=== PATIENT | female | born 1970 | race Caucasian/White ===

== ENCOUNTER 2019-08-20 00:30 | Day surgery (SDC) | payer OTHER, SELFPAY ==
[2019-08-14 09:59] VITALS: BMI 40.3
[2019-08-20 08:50] VITALS: BP 121/83; PULSE 80; RESP 16; TEMP 36.5; O2SAT 100; BMI 41.0
[2019-08-20] MEDS: LACTATED RINGERS 1,000 ML 150 ML IV CONT (09:15)
--- NOTE | 2019-08-20 09:17 | WPDANESEPPF ---
Anes - Initial Pre Proc Eval Procedure: Operation Date: 08/20/19 09:30 Proposed Procedures p Esophagogastroduodenoscopy - Shreyas Black MD Date/Time: 08/20/19 09:17 Surgeon: Shreyas Black MD Pre Op Diagnosis: Epigastric Pain Patient Data Age: 48 Gender: F Height: 1.57 m Weight: 101.7 kg Last Vital Signs Temp 36.5 C 08/20/19 08:50 Pulse 80 08/20/19 08:50 Resp 16 08/20/19 08:50 BP 121/83 08/20/19 08:50 Pulse Ox 100 08/20/19 08:50 Allergies Allergy/AdvReac Type Severity Reaction Status Date / Time No Known Allergies Allergy Verified 08/20/19 08:54 Home Medications Medication Instructions Recorded Confirmed Type budesonide-formoterol HFA 160 2 puff INHALATION Q12H 07/15/19 08/14/19 History mcg-4.5 mcg/actuation aerosol inhaler lisinopril 10 1 tablet PO DAILY 07/15/19 08/20/19 History mg-hydrochlorothiazide 12.5 mg tablet venlafaxine 150 mg 150 mg PO DAILY 07/15/19 08/14/19 History capsule,extended release 24 hr albuterol sulfate 90 mcg/actuation 2 puff INHALATION Q4-6H PRN #8.5 gm 07/16/19 08/14/19 Rx aerosol inhaler montelukast 10 mg tablet 10 mg PO DAILY 07/16/19 08/14/19 History umeclidinium 62.5 mcg/actuation 1 inhalation INHALATION DAILY #30 07/16/19 08/14/19 Rx blister powder for inhalation each Patient hx anesthesia problems: none Family hx anesthesia problems: none PMFSH Past Medical History Medical History (Updated 08/19/19 @ 13:41 by Naman Will DO) Anxiety Chronic obstructive pulmonary disease Former smoker Hypertension Nodule of right lung KAREN (obstructive sleep apnea) Rash Surgical History Surgical History (Updated 08/19/19 @ 13:41 by Naman Will DO) History of cholecystectomy History of tubal ligation Family History Family History (Updated 09/04/17 @ 07:09 by DOCTOR UNKNOWN) Sibling Depression Patient's sister is in good health Patient's brother is in good health Mother Family history of heart disease in male family member before age 55 Family history of cardiovascular disease, Onset Age: 50 Other Family history of gastrointestinal disorder Hypertension Social History Social History Smoking status: Former smoker Smoking end date: 06/17/11 Alcohol intake: current Anes - Eval Final PreProcedure Day of Procedure 08/20/19 09:17 Patient weight: morbidly obese Heart: regular rate and rhythm Lungs: clear to auscultation and normal air movement Airway: Mallampati scale class II Neurological: alert and oriented Last oral intake: >/= 8 hours ASA classification: III Emergent: no Anesthetic plan: proceed Anesthesia type and monitoring: general GIVS and standard monitoring Informed Consent: The patient's anesthetic plan and its attendant risks and benefits were discussed with the patient/family/POA. Questions were solicited and answers provided to the satisfaction of the patient/family/POA.
--- NOTE | 2019-08-20 09:34 | WPDGICN ---
Assessment and Plan Additional Plan This is a 48-year-old white female patient I am asked to see at the request Dr. Tejada. patient reports a 6 month history of mid upper abdominal pain. She notices nausea perhaps 3 times a week. Sometimes the pain feels like a pinch sometimes like a burning type pain. There is no relation of pain to diet. Nor relation to movement. She has tried Tums with no relief of symptoms. Recent trial of Prilosec has not yet changed her pain. Past medical history is significant for hypertension. COPD. Hypertension. Previous surgery includes cholecystectomy. Medications include lisinopril, Singulair, Symbicort, Flonase. Venlafaxine. No known medical allergies. Physical exam reveals her to be alert. Vital signs stable. HEENT exam unremarkable. Lungs are clear to auscultation and percussion. Heart is without murmur or extra sounds. Abdominal exam is somewhat obese. Bowel sounds are present soft she reports tenderness in the midepigastric area. rectal exam is deferred. Impression 1. Epigastric pain. Etiology unclear. Plan is for EGD to assess more thoroughly. Continue proton pump inhibitor for the interim period GI Consult Note Consult date/time: 08/20/19 09:34 HPI: Eli Rey is a 48 year old female [facility] Past Medical History Medical History (Updated 08/19/19 @ 13:41 by Naman Will DO) Anxiety Chronic obstructive pulmonary disease Former smoker Hypertension Nodule of right lung KAREN (obstructive sleep apnea) Rash Surgical History Surgical History (Updated 08/19/19 @ 13:41 by Naman Will DO) History of cholecystectomy History of tubal ligation Family History Family History (Updated 09/04/17 @ 07:09 by DOCTOR UNKNOWN) Sibling Depression Patient's sister is in good health Patient's brother is in good health Mother Family history of heart disease in male family member before age 55 Family history of cardiovascular disease, Onset Age: 50 Other Family history of gastrointestinal disorder Hypertension Social History Social History Smoking status: Former smoker Smoking end date: 06/17/11 Alcohol intake: current Meds Home Medications and Allergies Home Medications Medication Instructions Recorded Confirmed Type budesonide-formoterol HFA 160 2 puff INHALATION Q12H 07/15/19 08/14/19 History mcg-4.5 mcg/actuation aerosol inhaler lisinopril 10 1 tablet PO DAILY 07/15/19 08/20/19 History mg-hydrochlorothiazide 12.5 mg tablet venlafaxine 150 mg 150 mg PO DAILY 07/15/19 08/14/19 History capsule,extended release 24 hr albuterol sulfate 90 mcg/actuation 2 puff INHALATION Q4-6H PRN #8.5 gm 07/16/19 08/14/19 Rx aerosol inhaler montelukast 10 mg tablet 10 mg PO DAILY 07/16/19 08/14/19 History umeclidinium 62.5 mcg/actuation 1 inhalation INHALATION DAILY #30 07/16/19 08/14/19 Rx blister powder for inhalation each Allergies Allergy/AdvReac Type Severity Reaction Status Date / Time No Known Allergies Allergy Verified 08/20/19 08:54 Vital Signs Vital Signs - 24 hr 08/20/19 08:50 Temperature 36.5 C Pulse Rate 80 Respiratory Rate 16 Blood Pressure 121/83 Pulse Oximetry 100
[2019-08-20] MEDS: BENZOCAINE (*SP) 60 ML SPRAY CAN (HURRICAINE) 1 SPRAY MUCOUS MEM (09:36)
[2019-08-20 09:50] VITALS: BP 136/114; PULSE 87; RESP 20; O2SAT 100
[2019-08-20 10:00] VITALS: BP 115/79; PULSE 83; RESP 18; O2SAT 99
[2019-08-20 10:10] VITALS: BP 104/67; PULSE 79; RESP 20; O2SAT 100
== END 2019-08-20 10:28 | disposition home or self-care (01) ==
PROVIDERS: PCP Internal Medicine; Visit Provider Internal Medicine Gastroenterology
PROC: 0DJ08ZZ Inspection of Upper Intestinal Tract, Via Natural or Artificial Opening Endoscopic (ICD-10-PCS; CPT 43235; principal; 2019-08-20 09:30)
DX: K29.80 Duodenitis without bleeding (principal); I10 Essential (primary) hypertension; J44.9 Chronic obstructive pulmonary disease, unspecified; G47.33 Obstructive sleep apnea (adult) (pediatric); F41.9 Anxiety disorder, unspecified; R91.1 Solitary pulmonary nodule; Z87.891 Personal history of nicotine dependence; E66.01 Morbid (severe) obesity due to excess calories; Z68.41 Body mass index [BMI] 40.0-44.9, adult
CPT/HCPCS: 43239; 87081; J2704; J7120

== ENCOUNTER 2019-12-11 10:47 | Outpatient (CLI) | payer OTHER, SELFPAY ==
--- NOTE | ~2019-12-11 | CT_ITS ---
EXAMINATION: CT chest wo con DATE: 12/11/2019 11:08 INDICATION: Solitary pulmonary nodule TECHNIQUE: Computed tomography (CT) of the chest was performed without intravenous contrast. The dose -length product (DLP) was 397.39 mGy-cm. Automated exposure control and iterative reconstruction tech [employer] were employed. COMPARISON: 12/09/2018, 12/03/2017 FINDINGS: There is moderate emphysema. There is a stable 5 mm nodule of the right lower lobe. No new or suspicious pulmonary nodule is identified. The lungs are free of focal airspace opacities. No path ologically enlarged thoracic lymph nodes are identified. The heart size is normal. The gallbladder is surgically absent. Punctate calcifications in an otherwise normal spleen likely represent healed gra nulomatous disease. IMPRESSION: 1. Stable nodule of the right lower lobe, most consistent with old granulomatous disease. 2. Moderate emphysema. Reviewed, dictated and finalized at location A. IMPRESSION: 1. Stable nodule of the right lower lobe, most consistent with old granulomatou s disease. 2. Moderate emphysema.
== END 2019-12-11 10:48 | disposition home or self-care (01) ==
LOC: ANHIMG 10:52
PROVIDERS: PCP Internal Medicine; Visit Provider Internal Medicine Critical Care Medicine
DX: R91.1 Solitary pulmonary nodule (principal); J43.9 Emphysema, unspecified
CPT/HCPCS: 71250

== ENCOUNTER 2020-01-16 10:01 | Outpatient (CLI) | payer OTHER, SELFPAY ==
[2020-01-16 10:37] LABS: LDL Cholesterol Direct 125 mg/dL
[2020-01-16 10:38] LABS: Alanine Aminotransferase 22 U/L (4-35); Albumin Level 4.1 g/dL (3.5-5.1); Alkaline Phosphatase 81 U/L (38-126); Anion Gap 10.3 mmol/L (7-16); Aspartate Amino Transferase 20 U/L (14-36); Bilirubin,Total 0.2 mg/dL (0.2-1.3); Blood Urea Nitrogen 22 mg/dL (7-17); Calcium 9.3 mg/dL (8.4-10.2); Carbon Dioxide 28 mmol/L (22-30); Chloride 103 mmol/L (98-107); Cholesterol 213 mg/dL (0-200); Estimated Glomerular Filt Rate > 60; Glucose 104 mg/dL (65-105); HDL Direct 52 mg/dL; Potassium 4.3 mmol/L (3.4-5.0); Sodium 137 mmol/L (137-145); Triglycerides 172 mg/dL (<150)
== END 2020-01-16 10:02 | disposition home or self-care (01) ==
PROVIDERS: PCP Internal Medicine; Visit Provider Internal Medicine
DX: R53.83 Other fatigue (principal); I10 Essential (primary) hypertension
CPT/HCPCS: 36415; 80053; 80061; 84443

== ENCOUNTER 2020-04-12 13:13 | Emergency (ER) | payer OTHER, SELFPAY ==
--- NOTE | ~2020-04-12 | XR_ITS ---
EXAMINATION: XR chest 2V DATE: 04/12/2020 14:14 INDICATION: 2 days of shortness of breath TECHNIQUE: frontal and lateral views of the chest were obtained. COMPARISON: Chest radiograph dated 01/02/1990 FINDINGS: Heart size is normal with prominent bilateral pericardial fat pads. No focal airspace opacities, pulm onary edema, pleural effusion or pneumothorax. Mild to moderate thoracic spondylosis. IMPRESSION: 1. No acute cardiopulmonary disease. Reviewed, dictated and finalized at location B.
--- NOTE | 2020-04-12 13:18 | ECG_ITS ---
Measurements Intervals [place] Rate: 86 P: 63 AK: 143 QRS: 80 QRSD: 79 T: 44 QT: 357 QTc: 429 Interpretive Statements SINUS RHYTHM BASELINE ARTIFACT- V1 NORMAL ECG Electronically Signed On 04-12-2020 13:59:09 CDT by West Shaver D.O.
[2020-04-12 13:20] VITALS: BP 136/105; PULSE 88; RESP 30; TEMP 36.5; O2SAT 100
[2020-04-12 13:48] LABS: Basophils Percent Auto 0.7 % (0.2-1.2); Eosinophils Absolute Auto 0.1 K/mm3 (0-0.3); Eosinophils Percent Auto 2.6 % (0-4.4); Hematocrit 39.4 % (37.0-47.0); Hemoglobin 13.4 g/dL (12.0-15.0); Immature Granulocyte Absolute 0.02 K/mm3 (0.00-0.031); Immature Granulocyte Percent A 0.4 % (0-0.5); Mean Corpuscular Hemoglobin 31.8 pg (26-34); Mean Corpuscular Volume 93.6 fl (80-100); Mean Platelet Volume 9.3 fl (7.4-10.4); Monocytes Absolute Auto 0.4 K/mm3 (0.1-0.6); Monocytes Percent Auto 7.9 % (2.6-8.5); Neutrophils Absolute Auto 3.5 K/mm3 (1.3-6.7); Neutrophils Percent Auto 64.4 % (45.5-73.1); Platelet Count Result 323 k/mm3 (150-375); Red Blood Count 4.21 M/mm3 (4.2-5.4); Red Cell Distribution Width 13.7 % (11.5-14.5); White Blood Count 5.4 K/mm3 (4.5-10.0)
[2020-04-12 14:35] LABS: NT Pro B Type Natriuretic Pept 36 PG/ML (5-100); Troponin I < 0.012 ng/mL (0.000-0.034)
[2020-04-12 14:53] LABS: Anion Gap 13 mmol/L (8-16); Blood Urea Nitrogen 17 mg/dL (7-17); Calcium 10.1 mg/dL (8.4-10.2); Carbon Dioxide 23 mmol/L (22-30); Chloride 106 mmol/L (98-107); Estimated CRCL calculation 75 ml/min; Estimated Glomerular Filt Rate > 60; Glucose 86 mg/dL (65-105); Potassium 3.8 mmol/L (3.4-5.0); Sodium 142 mmol/L (137-145)
--- NOTE | 2020-04-12 15:06 | ED.SOB ---
HPI - SOB/Dyspnea General Chief Complaint: Shortness of Breath/Dyspnea Stated Complaint: SOB Time Seen by Provider: 04/12/20 13:42 Source: patient Mode of arrival: ambulatory Limitations: no limitations History of Present Illness HPI Narrative: 49-year-old female Complains of several days of relatively constant and ongoing shortness of breath She does not have chest pain she does not have a cough she does not have a fever She has a history of COPD and thinks this is the problem She is taking her medications and she currently does not have any wheezing at all and sat is 100% on room air Apparently she declined a blood gas MD elicited complaint: shortness of breath Pertinent past history: COPD Related Data Home Medications Medication Instructions Recorded Confirmed budesonide-formoterol HFA 160 2 puff INHALATION Q12H 07/15/19 10/15/19 mcg-4.5 mcg/actuation aerosol inhaler lisinopril 10 1 tablet PO DAILY 07/15/19 10/15/19 mg-hydrochlorothiazide 12.5 mg tablet venlafaxine 150 mg 150 mg PO DAILY 07/15/19 10/15/19 capsule,extended release 24 hr montelukast 10 mg tablet 10 mg PO DAILY 07/16/19 10/15/19 Allergies Allergy/AdvReac Type Severity Reaction Status Date / Time No Known Allergies Allergy Verified 04/12/20 13:42 Review of Systems Review of Systems: All systems reviewed & are unremarkable except as noted in HPI and below Constitutional: Constitutional: Denies chills, Denies fatigue, Denies fever(s), Denies headache(s) and Denies weakness Eyes: Eyes: Denies change in vision and Denies other visual disturbances ENT: Denies headache(s), Denies epistaxis, Denies nasal congestion and Denies sore throat Cardiovascular: Cardiovascular: Denies chest pain, Denies leg edema, Denies palpitations and Denies dyspnea Respiratory: Respiratory: Denies cough and Reports dyspnea Gastrointestinal: Gastrointestinal: Denies abdominal pain, Denies diarrhea, Denies nausea and Denies vomiting Genitourinary: Genitourinary: Denies hematuria, Denies urinary frequency and Denies dysuria Musculoskeletal: Musculoskeletal: Denies deformity, Denies arthralgias, Denies joint swelling, Denies muscle weakness and Denies numbness Integumentary/Breasts: Skin/Breast: Denies rash, Denies unusual bruising and Denies wounds Neurologic: Denies Abnormal speech present, Denies headache(s), Denies focal weakness, Denies numbness and Denies weakness Psychiatric: Psychiatric: Reports no additional psychiatric complaints Endocrine: Endocrine: Denies fatigue and Denies palpitations Hematologic/Lymphatic: Hematologic/Lymphatic: Denies easy bleeding and Denies easy bruising Allergic/Immunologic: Allergic/Immunologic: Denies wheezing PMFSH Past Medical History Medical History (Updated 04/12/20 @ 17:53 by Shreyas Jordan MD) Anxiety Chronic obstructive pulmonary disease Former smoker Hypertension Nodule of right lung KAREN (obstructive sleep apnea) Rash Surgical History Surgical History (Updated 08/19/19 @ 13:41 by Naman Will DO) History of cholecystectomy History of tubal ligation Family History Family History (Updated 09/04/17 @ 07:09 by DOCTOR UNKNOWN) Sibling Depression Patient's sister is in good health Patient's brother is in good health Mother Family history of heart disease in male family member before age 55 Family history of cardiovascular disease, Onset Age: 50 Other Family history of gastrointestinal disorder Hypertension Social History Social History (Reviewed 07/16/19 @ 11:19 by Kezia Estevez [facility]) Smoking status: Former smoker Smoking end date: 06/17/11 Alcohol intake: current Exam Const: General: well developed, alert and awake Nutritional Appearance: well nourished Orientation/consciousness: patient oriented x3 (alert) Limitations: no limitations HENMT: Head: normocephalic and atraumatic Ears: external ears normal General nose ex
--- NOTE | 2020-04-12 15:09 | PC.NURSE ---
Called lab to add on D Dimer
[2020-04-12] MEDS: LORazepam INJ (*CRX) 2 MG/ML VIAL 1 MG IV PUSH (15:15)
[2020-04-12 16:28] LABS: D Dimer 0.39 ug/mL (<0.48)
== END 2020-04-12 18:08 | disposition home or self-care (01) ==
PROVIDERS: Emergency Medicine; Emergency Provider Emergency Medicine; PCP Internal Medicine
DX: R06.00 Dyspnea, unspecified (principal); J44.9 Chronic obstructive pulmonary disease, unspecified; Z87.891 Personal history of nicotine dependence; G47.33 Obstructive sleep apnea (adult) (pediatric); I10 Essential (primary) hypertension; F41.9 Anxiety disorder, unspecified
CPT/HCPCS: 36415; 71046; 80048; 83880; 84484; 85025; 85380; 93005; 96374; 99284; J2060

== ENCOUNTER 2020-06-27 12:23 | Outpatient (CLI) | payer OTHER, SELFPAY ==
--- NOTE | 2020-06-27 16:35 | WPDPFTINT ---
PFT Interpretation This is a pulmonary function test with pre and post-bronchodilator spirometry, plethysmography and diffusing capacity. The test was performed and results interpreted in accordance with the 2019 and 2005 ATS/ERS Task Force guidelines respectively using the Santosh/Micah reference equations. Findings: Spirometry: There is decreased maximal expiratory airflow at all lung volumes with a concave expiratory flow tracing. The pre-bronchodilator FVC is 2.90 L, 91% predicted. The pre bronchodilator FEV1 is 1.86 L, 77% predicted. The FEV1: FVC ratio is 64%. The post bronchodilator FVC is 2.83 L, representing a 2% decrease. The post bronchodilator FEV1 is 1.92 L, representing a 3% increase. Plethysmography: The total lung capacity is 4.58 L, 96% predicted. The functional residual capacity is 2.44 L, 121% predicted. The residual volume is 1.68 L, 101% predicted Diffusing capacity: The absolute diffusing capacity is 13.3, 51% predicted. The diffusing capacity corrected for alveolar volume is 3.61, 88% predicted. In comparison to previous pulmonary function test in our laboratory from 12/03/2017 the post bronchodilator FVC has remained unchanged from 2.54 L to 2.83 L. The post bronchodilator FEV1 has remained unchanged from 1.76 L to 1.92 L. the total lung capacity is unchanged from 4.75 L to 4.58 L. The functional residual capacity is unchanged from 2.53 L to 2.44 L. The residual volume has decreased from 2.09 L to 1.68 L. The diffusing capacity corrected for alveolar volume is unchanged from 3.69 to 3.61. Impression: There is a mild obstructive abnormality without significant improvement after inhaling a single dose of albuterol. Hyperinflation is present is demonstrated by the increase in functional residual capacity and and is consistent with an obstructive abnormality. The absolute diffusing capacity is moderately decreased but normalizes when corrected for alveolar volume. In comparison to prior pulmonary function test on 12/03 2017 there has been no significant change in FVC, FEV1, total lung capacity, functional residual capacity or DLCO corrected for alveolar volume. There has been a decrease in the residual volume from 2.09 to 1.68 L. clinical correlation is recommended.
--- NOTE | 2020-06-27 16:42 | WPDSIXMINUTE ---
Six Minute Walk This is a 6 minutes walk for exertional dyspnea. Findings: The patient's resting room air oxygen saturation measured by pulse oximetry was 95% and heart rate was 75 bpm. Patient ambulated on room air for 335 meters and oxygen saturation remained 92 to 97%. Heart rate at the end of the study was 111 bpm. There are no prior studies for comparison.
== END 2020-06-27 12:24 | disposition home or self-care (01) ==
PROVIDERS: PCP Internal Medicine; Visit Provider Internal Medicine Critical Care Medicine
DX: R06.02 Shortness of breath (principal); R94.2 Abnormal results of pulmonary function studies
CPT/HCPCS: 94060; 94618; 94726; 94729

== ENCOUNTER 2020-09-06 10:04 | Outpatient (CLI) | payer OTHER, SELFPAY ==
--- NOTE | 2020-09-06 | EST_ITS ---
Patient Info Name: Eli Rey Age: 49 years : 1970 Gender: Female Ht: 63 in Wt: 232 lbs BSA: 2.22 m2 Exam Date: 09/06/2020 11:16 AM Exam Location: [facility], [place] Stress Patient Status: Outpatient Admit Date: 09/06/2020 Staff Ordering Physician: Jaz Almazan MD Attending Provider: Jaz Almazan MD Exercise Technologist: Haley Bustos RD Exercise Physician: West hSaver DO Exam Type: CA stress elva w NM Study Info A regadenoson stress test was performed. Summary 1. 1. Negative lexiscan stress test for ischemic ST changes by ECG criteria. 2. 2. Stable hemodynamics throughout the test. 3. 3. Nuclear scan to follow and will be reported separately. Please correlate with it. 4. 4. Patient informed of the above results. Protocol: Lexiscan Stress ECG Details Stage: REST Duration (min): 6 min : 4 sec HR (bpm): 76 SBP (mmHg): 109 DBP (mmHg): 60 Stage: REST Duration (min): 20 min : 23 sec HR (bpm): 78 SBP (mmHg): 109 DBP (mmHg): 60 Stage: STAGE 1 Duration (min): 1 min : 0 sec HR (bpm): 101 SBP (mmHg): 86 DBP (mmHg): 67 Stage: RECOVERY Duration (min): 1 min : 0 sec HR (bpm): 100 SBP (mmHg): 119 DBP (mmHg): 68 Stage: RECOVERY Duration (min): 2 min : 0 sec HR (bpm): 97 SBP (mmHg): 119 DBP (mmHg): 68 Stage: RECOVERY Duration (min): 3 min : 0 sec HR (bpm): 98 SBP (mmHg): 111 DBP (mmHg): 68 Stage: RECOVERY Duration (min): 4 min : 0 sec HR (bpm): 92 SBP (mmHg): 111 DBP (mmHg): 68 Stage: RECOVERY Duration (min): 4 min : 41 sec HR (bpm): 89 SBP (mmHg): 103 DBP (mmHg): 68 Rest HR: 78 bpm Peak HR: 106 bpm Rest Sys BP: 109 mmHg Peak Sys BP: 119 mmHg Max Pred HR: 170 bpm % Max Pred HR: 62 % Target HR: 145 bpm Max RPP: 12,614 bpm*mmHg Termination Reason: Completed protocol Cardiac Symptoms: Shortness of breath Total Time: 1 min : 0 sec Rest [place] BP: 60 mmHg Peak [place] BP: 68 mmHg Total Dose: 0.4 mg Resting ECG Sinus rhythm. Stress ECG No ST changes. Arrhythmias None. Report Signatures
--- NOTE | ~2020-09-06 | NM_ITS ---
EXAMINATION: NM elva stress w perfusion DATE: 09/06/2020 13:43 INDICATION: Dyspnea TECHNIQUE: Rest images were obtained following intravenous administration of 9.44 mCi Tc99m tetrofosm in (Myoview). The patient was infused intravenously with Lexiscan (Regadenoson). Then, 29.3 mCi Tc99m tetrofosmin (Myoview) was administered intravenously, and stress images were obtained. Additional pr one post stress images were obtained. Data was reconstructed into short axis and horizontal and verti alvarado long axis SPECT images. Gated SPECT images were also obtained. COMPARISON: None. FINDINGS: There is likely breast attenuation artifact along the anterior wall on the nongated rest an d stress images which demonstrate normal perfusion on with normal wall motion and thickening on the g ated post stress images. There is no definite reversible or fixed perfusion abnormality to suggest is chemia or infarction. There is normal left ventricular chamber size, wall motion and ejection fracti on. Left ventricular ejection fraction measures 68%. IMPRESSION: 1. Normal myocardial perfusion at rest and during stress. 2. Left ventricular ejection fraction measuring 68%. Reviewed, dictated and finalized at location A.
== END 2020-09-06 10:05 | disposition home or self-care (01) ==
PROVIDERS: PCP Internal Medicine; Visit Provider Internal Medicine Critical Care Medicine
DX: R06.00 Dyspnea, unspecified (principal)
CPT/HCPCS: 78452; 93017; A9502; J2785

== ENCOUNTER 2021-01-18 08:51 | Outpatient (CLI) | payer OTHER, SELFPAY ==
--- NOTE | ~2021-01-18 | CT_ITS ---
EXAMINATION: CT diagnostic chest wo con DATE: 01/18/2021 10:21 INDICATION: Solitary pulmonary nodule TECHNIQUE: Computed tomography (CT) of the chest was performed without intravenous contrast. The dose -length product (DLP) was 434.53 mGy-cm. Automated exposure control and iterative reconstruction tech [email or web address] were employed. COMPARISON: 12/11/2019 FINDINGS: Again noted is a stable 5 mm nodule of the right lower lobe. No new or suspicious pulmonary nodule is identified. There is moderate emphysema. No pleural effusion or pneumothorax is identified . The lungs are free of acute opacities. No pathologically enlarged thoracic lymph nodes are identifi ed. The heart size is normal. Punctate calcifications in an otherwise normal spleen likely represent healed granulomatous disease. The gallbladder is surgically absent. There is mild thoracic spondylosi s. IMPRESSION: 1. Stable right lower lobe nodule, consistent with old granulomatous disease. 2. Moderate emphysema. Reviewed, dictated and finalized at location A.
--- NOTE | ~2021-01-18 | MM_ITS ---
EXAMINATION: MM screening stacey BI w chidi HISTORY: Screening TECHNIQUE: Craniocaudal and mediolateral oblique 3-D tomosynthesis images were obtained and synthetic 2-D images were generated. CAD analysis was submitted and interpreted. COMPARISON: Comparison to multiple prior studies sequentially, with oldest reviewed study dated 08/28. BREAST PARENCHYMAL COMPOSITION: There are scattered areas of fibroglandular density. FINDINGS: There is no evidence of suspicious mass, calcification, or architectural distortion to sugg est malignancy in either breast. There has been no suspicious interval change. IMPRESSION: 1. No mammographic evidence of malignancy. 2. Recommend routine screening mammography in one year. BI-RADS Category 1: Negative Reviewed, dictated and finalized at location A.
[2021-01-18 10:06] LABS: Alanine Aminotransferase 23 U/L (4-35); Alkaline Phosphatase 98 U/L (38-126); Anion Gap 8 mmol/L (8-16); Aspartate Amino Transferase 20 U/L (14-36); Bilirubin,Total 0.2 mg/dL (0.2-1.3); Blood Urea Nitrogen 14 mg/dL (7-17); Calcium 9.5 mg/dL (8.4-10.2); Carbon Dioxide 27 mmol/L (22-30); Chloride 99 mmol/L (98-107); Cholesterol 213 mg/dL (0-200); Estimated Glomerular Filt Rate > 60; Glucose 107 mg/dL (65-110); HDL Direct 49 mg/dL; Potassium 4.2 mmol/L (3.4-5.0); Sodium 134 mmol/L (137-145); Triglycerides 216 mg/dL (<150)
[2021-01-18 10:17] LABS: LDL Cholesterol Direct 119 mg/dL
== END 2021-01-18 08:52 | disposition home or self-care (01) ==
PROVIDERS: PCP Internal Medicine; Visit Provider Internal Medicine
DX: R91.1 Solitary pulmonary nodule (principal); Z12.31 Encounter for screening mammogram for malignant neoplasm of breast; I10 Essential (primary) hypertension; J43.9 Emphysema, unspecified
CPT/HCPCS: 36415; 71250; 77063; 77067; 80053; 80061

== ENCOUNTER → 2021-03-07 03:10 | Outpatient (CLI) | payer OTHER, SELFPAY ==
[2021-03-07 18:18] LABS: SARS-CoV-2 RNA PCR Negative
== END ==
PROVIDERS: PCP Internal Medicine; Visit Provider Internal Medicine Gastroenterology
DX: Z01.812 Encounter for preprocedural laboratory examination (principal); Z20.822 Contact with and (suspected) exposure to COVID-19
CPT/HCPCS: C9803; U0003; U0005

== ENCOUNTER 2021-03-10 02:59 | Day surgery (SDC) | payer OTHER, SELFPAY ==
[2021-03-02 09:06] VITALS: BMI 41.0
[2021-03-10 10:19] VITALS: BP 137/97; PULSE 99; RESP 18; TEMP 36.5; O2SAT 98; BMI 41.8
[2021-03-10] MEDS: LACTATED RINGERS 1,000 ML 150 ML IV CONT (10:29)
--- NOTE | 2021-03-10 10:30 | P.CONGI_ITS ---
Assessment and Plan Assessment and plan (1) Encounter for screening colonoscopy: Code(s): Z12.11 - Encounter for screening for malignant neoplasm of colon Status: Acute Assessment and Plan: Patient presents for screening colonoscopy. Appears to be at average risk for colon polyps. Further recommendations will be given after endoscopy. GI Consult Note Consult date/time: 03/10/21 10:30 HPI: Eli Rey is a 50 year old female Presents for screening colonoscopy. Patient reports that her current weight appetite bowel movements are normal. She denies abdominal pain. She has had no bleeding. Family history is noncontributory. Patient reports that her daughter was identified with Crohn's disease many years ago. There is no known history of colon polyps or cancer within the family. [facility] Past Medical History Medical History (Updated 03/10/21 @ 10:32 by Shreyas Black MD) Anxiety Chronic obstructive pulmonary disease Former smoker Hypertension Nodule of right lung KAREN (obstructive sleep apnea) Rash Surgical History Surgical History History of cholecystectomy History of tubal ligation Family History Family History Sibling Depression Patient's sister is in good health Patient's brother is in good health Mother Family history of heart disease in male family member before age 55 Family history of cardiovascular disease, Onset Age: 50 Other Family history of gastrointestinal disorder Hypertension Social History Social History Smoking status: Former smoker Tobacco type: cigarettes Smoking end date: 06/17/11 Alcohol intake: current Drinks per week: 10 Living arrangements: with family Spiritual care concerns: No Meds Home Medications and Allergies Home Medications Medication Instructions Recorded Confirmed Type lisinopril 10 1 tablet PO DAILY 07/15/19 03/10/21 History mg-hydrochlorothiazide 12.5 mg tablet venlafaxine 150 mg 150 mg PO DAILY 07/15/19 03/10/21 History capsule,extended release 24 hr albuterol sulfate 90 mcg/actuation 2 puff INHALATION Q4-6H PRN #8.5 gm 07/16/19 03/10/21 Rx aerosol inhaler montelukast 10 mg tablet 10 mg PO DAILY 07/16/19 03/10/21 History budesonide-formoterol HFA 160 2 puff INHALATION Q12H #10.2 g 01/12/21 03/10/21 Rx mcg-4.5 mcg/actuation aerosol inhaler Allergies Allergy/AdvReac Type Severity Reaction Status Date / Time No Known Allergies Allergy Verified 03/10/21 10:18 Vital Signs Vital Signs - 24 hr 03/10/21 10:19 Temperature 97.7 F Pulse Rate 99 Respiratory Rate 18 Blood Pressure 137/97 H Pulse Oximetry 98 Exam Narrative: Physical exam reveals patient to be alert. Vital signs stable. HEENT exam is unremarkable. Patient is anicteric. Lungs are clear to auscultation and percussion. Heart is without murmur or extra sounds. Abdominal exam bowel sounds are present soft nontender with no organomegaly. Digital external rectal exam is normal.
--- NOTE | 2021-03-10 11:07 | WPDANESEPPF ---
Anes - Initial Pre Proc Eval Procedure: Operation Date: 03/10/21 11:00 Proposed Procedures p Screening Colonoscopy - Shreyas Black MD Date/Time: 03/10/21 11:07 Surgeon: Shreyas Black MD Pre Op Diagnosis: neoplasm screening Patient Data Age: 50 Gender: F Height: 1.6 m Weight: 107.1 kg Last Vital Signs Temp 97.7 F 03/10/21 10:19 Pulse 99 03/10/21 10:19 Resp 18 03/10/21 10:19 BP 137/97 H 03/10/21 10:19 Pulse Ox 98 03/10/21 10:19 Allergies Allergy/AdvReac Type Severity Reaction Status Date / Time No Known Allergies Allergy Verified 03/10/21 10:18 Home Medications Medication Instructions Recorded Confirmed Type lisinopril 10 1 tablet PO DAILY 07/15/19 03/10/21 History mg-hydrochlorothiazide 12.5 mg tablet venlafaxine 150 mg 150 mg PO DAILY 07/15/19 03/10/21 History capsule,extended release 24 hr albuterol sulfate 90 mcg/actuation 2 puff INHALATION Q4-6H PRN #8.5 gm 07/16/19 03/10/21 Rx aerosol inhaler montelukast 10 mg tablet 10 mg PO DAILY 07/16/19 03/10/21 History budesonide-formoterol HFA 160 2 puff INHALATION Q12H #10.2 g 01/12/21 03/10/21 Rx mcg-4.5 mcg/actuation aerosol inhaler Patient hx anesthesia problems: none Family hx anesthesia problems: none Results Review: All pre-operative results and documents have been reviewed as part of the pre-operative evaluation. COUNTS INCLUDE 234 BEDS AT THE [facility] Past Medical History Medical History (Updated 03/10/21 @ 10:32 by Shreyas Black MD) Anxiety Chronic obstructive pulmonary disease Former smoker Hypertension Nodule of right lung KAREN (obstructive sleep apnea) Rash Surgical History Surgical History History of cholecystectomy History of tubal ligation Family History Family History Sibling Depression Patient's sister is in good health Patient's brother is in good health Mother Family history of heart disease in male family member before age 55 Family history of cardiovascular disease, Onset Age: 50 Other Family history of gastrointestinal disorder Hypertension Social History Social History Smoking status: Former smoker Tobacco type: cigarettes Smoking end date: 06/17/11 Alcohol intake: current Drinks per week: 10 Living arrangements: with family Spiritual care concerns: No Anes - Eval Final PreProcedure Day of Procedure 03/10/21 11:07 Patient weight: morbidly obese Heart: regular rate and rhythm Lungs: clear to auscultation Airway: Mallampati scale class II Neurological: alert and oriented Last oral intake: >/= 8 hours ASA classification: III Emergent: no Anesthetic plan: proceed Anesthesia type and monitoring: general GIVS and standard monitoring Results Review: All pre-operative results and documents have been reviewed as part of the pre-operative evaluation. Informed Consent: The patient's anesthetic plan and its attendant risks and benefits were discussed with the patient/family/POA. Questions were solicited and answers provided to the satisfaction of the patient/family/POA.
[2021-03-10 11:24] VITALS: BP 122/69; PULSE 94; RESP 20; O2SAT 99
[2021-03-10 11:34] VITALS: BP 112/77; BP 133/95; PULSE 93; PULSE 94; RESP 22; O2SAT 100
== END 2021-03-10 11:59 | disposition home or self-care (01) ==
PROVIDERS: PCP Internal Medicine; Visit Provider Internal Medicine Gastroenterology
PROC: 0DJD8ZZ Inspection of Lower Intestinal Tract, Via Natural or Artificial Opening Endoscopic (ICD-10-PCS; CPT 45378; principal; 2021-03-10 11:00)
DX: Z12.11 Encounter for screening for malignant neoplasm of colon (principal); K64.8 Other hemorrhoids; Z79.51 Long term (current) use of inhaled steroids; F41.9 Anxiety disorder, unspecified; J44.9 Chronic obstructive pulmonary disease, unspecified; Z87.891 Personal history of nicotine dependence; I10 Essential (primary) hypertension; R91.1 Solitary pulmonary nodule; G47.33 Obstructive sleep apnea (adult) (pediatric); E66.8 Other obesity; Z68.41 Body mass index [BMI] 40.0-44.9, adult
CPT/HCPCS: 45378; C9803; J2001; J2704; J7120; U0003; U0005

== ENCOUNTER 2021-06-21 14:32 | Emergency (ER) | payer OTHER, SELFPAY ==
--- NOTE | ~2021-06-21 | XR_ITS ---
XR chest 1V portable DATE: 06/22/2021 00:16 INDICATION: Weakness, fatigue since 06/10/2021. Covid exposure. History of COPD. TECHNIQUE: Portable upright AP chest on 06/22/2021 at 0012 hours COMPARISON: 01/18/2021 CT chest FINDINGS: Heart size appears within normal range. Limited portable examination. Patchy infiltrate and/atelectasis is suggested in the bilateral mid and lower lung zones, left greater than right. No pleural effusion or pneumothorax or pulmonary vascular congestion is evident. IMPRESSION: Suggestion of infiltrate or atelectasis in the mid and lower lung zones, left greater jada n right Reviewed, dictated and finalized at location A. RIAL LISTER IMPRESSION: Suggestion of infiltrate or atelectasis in the mid and lower lung z ones, left greater than right
[2021-06-21 14:55] VITALS: BP 114/75; PULSE 107; RESP 20; TEMP 37.1; O2SAT 96
[2021-06-21 19:14] VITALS: BP 111/73; PULSE 102; TEMP 36.7; O2SAT 93
[2021-06-21 22:21] VITALS: BP 115/75; PULSE 100; O2SAT 95
[2021-06-22 00:06] VITALS: BP 127/86; PULSE 95; RESP 28; TEMP 37.1; O2SAT 94
--- NOTE | 2021-06-22 00:33 | ED.URI ---
HPI - URI/Sore Throat General Chief Complaint: Upper Respiratory Infection Stated Complaint: COUGH,SOB,NAUSEA COVID + PUI Time Seen by Provider: 06/22/21 00:02 Source: patient Mode of arrival: ambulatory Limitations: no limitations History of Present Illness HPI Narrative: Patient is a 50-year-old complaining of cough, fatigue, weakness, lack of appetite, shortness of breath, nausea that started on [place], approximately 10 days ago. Patient states that it started out as nasal congestion and progressed to the above symptoms, worse the past few days. Patient states that her tested positive for Covid. Patient states that she is not vaccinated from Covid. Patient denies any chest pain, abdominal pain, vomiting, or diarrhea. Related Data Home Medications Medication Instructions Recorded Confirmed lisinopril 10 1 tablet PO DAILY 07/15/19 03/10/21 mg-hydrochlorothiazide 12.5 mg tablet venlafaxine 150 mg 150 mg PO DAILY 07/15/19 03/10/21 capsule,extended release 24 hr montelukast 10 mg tablet 10 mg PO DAILY 07/16/19 03/10/21 Allergies Allergy/AdvReac Type Severity Reaction Status Date / Time No Known Allergies Allergy Verified 06/22/21 00:08 Review of Systems Review of Systems: All systems reviewed & are unremarkable except as noted in HPI and below Constitutional: Constitutional: Denies excessive sweating, Denies headache(s), Denies lethargy and Denies weight loss Eyes: Eyes: Denies blurry vision, Denies change in vision and Denies loss of vision ENT: Denies dizziness, Denies ear discharge, Denies headache(s), Denies lip swelling, Denies epistaxis, Denies nasal congestion, Denies neck pain, Denies throat swelling and Denies tongue swelling Cardiovascular: Cardiovascular: Denies chest pain, Denies chest pain at rest, Denies chest pain with activity, Denies diaphoresis, Denies rapid heart rate, Denies edema, Denies irregular heart rhythm, Denies lightheadedness and Denies palpitations Respiratory: Respiratory: Denies chest congestion and Denies hemoptysis Gastrointestinal: Gastrointestinal: Denies abdominal pain, Denies melena, Denies hematochezia, Denies diarrhea, Denies vomiting and Denies hematemesis Musculoskeletal: Musculoskeletal: Denies abnormal gait, Denies deformity, Denies joint swelling, Denies limited range of motion, Denies neck pain and Denies numbness Neurologic: Denies Abnormal speech present, Denies abnormal gait, Denies confusion, Denies dizziness, Denies headache(s), Denies focal weakness, Denies loss of vision, Denies numbness, Denies Other visual disturbances, Denies Sensory deficit (Neuro) and Denies weakness Psychiatric: Psychiatric: Denies confusion, Denies depression, Denies auditory hallucinations, Denies homicidal ideation and Denies suicidal ideation Endocrine: Endocrine: Denies cold intolerance, Denies excessive sweating, Denies fatigue, Denies heat intolerance and Denies palpitations Hematologic/Lymphatic: Hematologic/Lymphatic: Denies easy bleeding and Denies easy bruising Allergic/Immunologic: Allergic/Immunologic: Denies lip swelling, Denies throat swelling and Denies tongue swelling PMFSH Past Medical History Medical History Anxiety Chronic obstructive pulmonary disease Former smoker Hypertension Nodule of right lung KAREN (obstructive sleep apnea) Rash Surgical History Surgical History History of cholecystectomy History of tubal ligation Family History Family History Sibling Depression Patient's sister is in good health Patient's brother is in good health Mother Family history of heart disease in male family member before age 55 Family history of cardiovascular disease, Onset Age: 50 Other Family history of gastrointestinal disorder Hypertension Social History Soci
[2021-06-22 00:51] LABS: Hematocrit 37.6 % (37.0-47.0); Hemoglobin 12.9 g/dL (12.0-15.0); Immature Granulocyte Absolute 0.04 K/mm3 (0.00-0.031); Immature Granulocyte Percent A 1.3 % (0-0.5); Lymphocytes Absolute Auto 0.71 K/mm3 (0.9-3.2); Lymphocytes Percent Auto 23.7 % (18.3-44.2); Mean Corpuscular HGB Conc 34.3 g/dl (32-36); Mean Corpuscular Hemoglobin 30.9 pg (26-34); Mean Corpuscular Volume 90.2 fl (80-100); Mean Platelet Volume 8.6 fl (7.4-10.4); Monocytes Absolute Auto 0.3 K/mm3 (0.1-0.6); Monocytes Percent Auto 8.7 % (2.6-8.5); Neutrophils Percent Auto 66.3 % (45.5-73.1); Platelet Count Result 255 k/mm3 (150-375); Red Blood Count 4.17 M/mm3 (4.2-5.4); Red Cell Distribution Width 13.2 % (11.5-14.5)
[2021-06-22 01:01] LABS: Alanine Aminotransferase 28 U/L (4-35); Albumin Level 4.1 g/dL (3.5-5.1); Alkaline Phosphatase 73 U/L (38-126); Anion Gap 11 mmol/L (8-16); Aspartate Amino Transferase 35 U/L (14-36); Bilirubin,Total 0.4 mg/dL (0.2-1.3); Blood Urea Nitrogen 14 mg/dL (7-17); Calcium 8.7 mg/dL (8.4-10.2); Carbon Dioxide 23 mmol/L (22-30); Chloride 100 mmol/L (98-107); Estimated CRCL calculation 84 ml/min; Estimated Glomerular Filt Rate > 60; Glucose 114 mg/dL (65-110); Potassium 3.2 mmol/L (3.4-5.0); Sodium 134 mmol/L (137-145)
[2021-06-22] MEDS: IPRATROPIUM BR 0.02% INH SOLN 0.5 MG/2.5 ML VIAL INHALATION (01:02)
[2021-06-22] MEDS: ALBUTEROL SULFATE NEB 2.5 MG/0.5 ML INH 5 MG INHALATION (01:02)
[2021-06-22 01:20] VITALS: PULSE 89; RESP 22
[2021-06-22 01:28] LABS: Alveolar/Arterial O2 Gradient 46.8 mmHg; Base Excess ABG -2.1 mEq/l (+/-2.0); Carboxyhemoglobin 0.3 % THb (0-2.0); Device ROOM AIR; Fractional Inspired Oxygen 21 %; HCO3 ABG 20.1 mEq/l (22.0-26.0); Methemoglobin ABG 0.2 %THb (0-1.5); Modified Allen's Test Pass; Oxygen Saturation ABG 95.4 % (95.0-100.0); Oxyhemoglobin 92.8 % THb (90.0-100.0); PCO2 ABG 27.5 mmHg (35.0-45.0); PO2 FiO2 Ratio Arterial Blood 3.33 %; Reduced Hemoglobin 6.7 %THb (0-5.0); Site Drawn RIGHT RADIAL; pH ABG 7.481 (7.350-7.450)
[2021-06-22 01:30] VITALS: PULSE 88; RESP 26
[2021-06-22 01:56] VITALS: BP 116/80; PULSE 96; RESP 24; O2SAT 93
[2021-06-22] MEDS: SODIUM CHLORIDE 0.9% IV 1,000 ML 999 ML IV CONT (01:57)
[2021-06-22] MEDS: POTASSIUM CHLORIDE 20 MEQ PACKET (FOR LIQUID) 40 MEQ PO (01:57)
[2021-06-22] MEDS: DEXAMETHASONE SOD PHOS INJ 4 MG/ML VIAL 10 MG IV PUSH (01:57)
[2021-06-22 02:55] VITALS: BP 136/84; PULSE 93; RESP 26; O2SAT 96
[2021-06-22 14:36] LABS: SARS-CoV-2 RNA PCR Negative
== END 2021-06-22 02:57 | disposition home or self-care (01) ==
PROVIDERS: Emergency Provider Emergency Medicine; PCP Internal Medicine
DX: B34.9 Viral infection, unspecified (principal); Z20.822 Contact with and (suspected) exposure to COVID-19; F41.9 Anxiety disorder, unspecified; J44.9 Chronic obstructive pulmonary disease, unspecified; I10 Essential (primary) hypertension; G47.30 Sleep apnea, unspecified
CPT/HCPCS: 36415; 36600; 71045; 80053; 82375; 82805; 83050; 85025; 94640; 96361; 96374; 99284; A9270; C9803; J1100; J7030; U0003; U0005

== ENCOUNTER 2021-06-29 16:45 | Inpatient (IN) | payer OTHER, SELFPAY ==
[2021-06-29] VITALS (24 sets, daily range): BP systolic 111–131; BP diastolic 70–109; PULSE 87–108; RESP 17–34; TEMP 36.9; O2SAT 88–100
--- NOTE | ~2021-06-29 | CT_ITS ---
EXAMINATION: CTA chest PE protocol DATE: 06/29/2021 18:57 INDICATION: Chest pain, shortness of breath, productive cough. Elevated d-dimer. History of COPD. TECHNIQUE: Computed tomography angiography (CTA) of the chest was performed with 100 mL Omnipaque-350 intravenous contrast timed to evaluate the pulmonary arteries. Coronal maximum intensity projection 3D-reconstructions were created by the technologist. Automated exposure control and iterative reconst ruction technique were employed. Exam dose: 758.77 mGy-cm total exam DLP. COMPARISON: 06/29/2021 portable upright AP chest FINDINGS: There is diagnostic contrast enhancement of the pulmonary arteries and no evidence of pulmo nary embolism. No thoracic aortic aneurysm or dissection is evident. There is mild hilar and mediastinal lymph node prominence, likely reactive, secondary to extensive pa tchy bilateral pulmonary infiltrates. Normal heart size. No pericardial or pleural effusion or pneumothorax. No suspicious osteolytic or osteoblastic lesions are noted. IMPRESSION: Extensive bilateral pulmonary infiltrates, likely due to Covid pneumonia Emphysema No evidence of pulmonary embolism Reviewed, dictated and finalized at Location A. Reviewed, dictated and finalized at location J. IGURATION MANAGEMENT ANALYST IMPRESSION: Extensive bilateral pulmonary infiltrates, likely due to Covid pne umonia Emphysema No evidence of pulmonary embolism
--- NOTE | ~2021-06-29 | XR_ITS ---
XR chest 1V portable 07/02/2021 06:33 Indication: Covid infection Procedure: AP portable chest Comparison: Comparison to multiple prior studies sequentially, with oldest reviewed study dated 01/02. Findings: Persistent bilateral airspace disease, left greater than right, consistent with pneumonia. No significant effusion or pneumothorax. No acute osseous abnormality. Impression: 1: No significant change to bilateral airspace disease, compatible with pneumonia. Reviewed, dictated and finalized at location A. ER CONSULTANT Impression: 1: No significant change to bilateral airspace disease, compatible with pneumon ia.
--- NOTE | ~2021-06-29 | XR_ITS ---
XR chest 1V portable DATE: 07/04/2021 06:34 INDICATION: Covid infection TECHNIQUE: Portable AP chest on 07/04/2021 at 0542 hours COMPARISON: 07/02/2021 portable AP chest FINDINGS: Patchy bilateral pulmonary infiltrates involving primarily the mid and lower lung zones, le ft greater than right, with little interval change since 07/02/2021. No pleural effusion or pulmonary vascular congestion or pneumothorax. IMPRESSION: Patchy bilateral pulmonary infiltrates, relatively stable since 07/02/2021 Reviewed, dictated and finalized at location A. UELS OPERATIONS MANAGER IMPRESSION: Patchy bilateral pulmonary infiltrates, relatively stable since 06/17
--- NOTE | ~2021-06-29 | XR_ITS ---
XR chest 1V portable DATE: 06/29/2021 17:39 INDICATION: Shortness of breath for one week. Chest tightness for 3 days. History of COPD, hypertensi on. TECHNIQUE: Portable AP chest on 06/29/2021 at 1734 hours COMPARISON: 06/22/2021 portable AP chest at 0012 hours FINDINGS: There is patchy infiltrate primarily involving the left mid and lower lung zones, with mild infiltrate or atelectasis in the right lower lung as well. The infiltrates are increased compared to 06/22/2021, particularly on the left. Heart size appears within normal range. No pleural effusion or pulmonary vascular congestion or pneum othorax is evident. IMPRESSION: Bilateral probable pneumonia, left greater than right Reviewed, dictated and finalized at location J. IFIED PROSTHETIST/ORTHOTIST
--- NOTE | 2021-06-29 16:59 | ECG_ITS ---
Measurements Intervals [place] Rate: 103 P: 59 MO: 142 QRS: 78 QRSD: 79 T: -3 QT: 316 QTc: 414 Interpretive Statements SINUS TACHYCARDIA BORDERLINE ST-T WAVE ABNORMALITY- ANT/INF LEADS BASELINE ARTIFACT- I, II, III, AVR, V6 BORDERLINE ECG Electronically Signed On 06-30-2021 8:19:14 DIRECTOR OF BUSINESS CONTINUITY by [place] D.O.
--- NOTE | 2021-06-29 17:13 | ED.SOB ---
HPI - SOB/Dyspnea General Chief Complaint: Shortness of Breath/Dyspnea Stated Complaint: sob x1 week Time Seen by Provider: 06/29/21 16:57 Source: patient and RN notes reviewed Mode of arrival: ambulatory Limitations: no limitations History of Present Illness HPI Narrative: This is a 50 year old female with history of hypertension and COPD who presents for evaluation of shortness of breath. She reports being sick since [place]. She has productive cough for over 2 weeks. She was evaluated in ER 1 week ago for her symptoms. She had negative covid test at that time and she was discharged home with diagnosis of viral URI. She was also prescribed steroid pack at that visit. Her symptoms worsened on June 26 so she called her field servicer. She was started on doxycycline and neb treatments yesterday, and she finished her steroids yesterday. She is reports nausea, chest pressure that his constant for 1 week. She reports last night she felt like she could not breath when she was laying down on her CPAP. On arrival to ER, her oxygen saturation was 90% on room air, and she is not normally on oxygen at home. Related Data Home Medications Medication Instructions Recorded Confirmed lisinopril 10 1 tablet PO DAILY 07/15/19 06/29/21 mg-hydrochlorothiazide 12.5 mg tablet venlafaxine 150 mg 150 mg PO DAILY 07/15/19 06/29/21 capsule,extended release 24 hr montelukast 10 mg tablet 10 mg PO DAILY 07/16/19 06/29/21 Allergies Allergy/AdvReac Type Severity Reaction Status Date / Time No Known Allergies Allergy Verified 06/29/21 17:07 Review of Systems Review of Systems: All systems reviewed & are unremarkable except as noted in HPI and below Constitutional: Constitutional: Reports chills, Reports fatigue and Reports fever(s) (low grade 99) Cardiovascular: Cardiovascular: Reports chest pain and Denies radiating jaw, neck or arm pain Respiratory: Respiratory: Reports cough, Reports dyspnea and Reports wheezing Gastrointestinal: Gastrointestinal: Denies abdominal pain, Reports diarrhea, Reports nausea and Denies vomiting [facility] Past Medical History Medical History (Updated 06/29/21 @ 21:36 by Marii Balderas DO) Anxiety Chronic obstructive pulmonary disease PFTs 06/27/2020: Mild obstructive abnormality without significant improvement with bronchodilators. Study without significant change compared to 2018. Eczema Former smoker Hypertension Nodule of right lung With stable CT scan January 2021. Exam consistent with granulomatous disease Normal nuclear stress test (08/2020) KAREN (obstructive sleep apnea) CPAP of 11 Rosacea Surgical History Surgical History (Updated 06/29/21 @ 21:36 by Marii Balderas DO) History of laparoscopic cholecystectomy (2014) History of tubal ligation Family History Family History Sibling Depression Patient's sister is in good health Patient's brother is in good health Mother Family history of heart disease in male family member before age 55 Family history of cardiovascular disease, Onset Age: 50 Other Family history of gastrointestinal disorder Hypertension Social History Social History Smoking status: Former smoker Tobacco type: cigarettes Smoking end date: 06/17/11 Alcohol intake: never Drinks per week: 10 Substance use: never Spiritual care concerns: No Exam Const: General: alert and ill appearing Orientation/consciousness: patient oriented x3 HENMT: Head: normocephalic and atraumatic Face and sinus: normal facial exam, sinuses nontender and face symmetric Mouth: Yes Normal oral and palatal mucosa present, Yes lip normal, Yes tongue normal, Yes oropharynx normal and Yes moist mucous membranes Throat: posterior oropharynx normal, tonsils normal and uvula midline Eyes: EOM: EOMs intact bilaterally Resp:
[2021-06-29] MEDS: ALBUTEROL SULFATE (*SP) AEROSOL 1 PUFF 4 PUFF INHALATION (17:18)
[2021-06-29 17:28] LABS: Alveolar/Arterial O2 Gradient 65.2 mmHg; Base Excess ABG 0.6 mEq/l (+/-2.0); Carboxyhemoglobin 0.5 % THb (0-2.0); Fractional Inspired Oxygen 24 %; HCO3 ABG 22.3 mEq/l (22.0-26.0); Methemoglobin ABG 0.3 %THb (0-1.5); Oxygen Content ABG 18.3 %vol (16.0-22.0); Oxygen Saturation ABG 96.1 % (95.0-100.0); Oxyhemoglobin 93.5 % THb (90.0-100.0); PCO2 ABG 28.1 mmHg (35.0-45.0); PO2 ABG 72.5 mmHg (80.0-100.0); PO2 FiO2 Ratio Arterial Blood 3.02 %; Reduced Hemoglobin 5.7 %THb (0-5.0); Total Hemoglobin 13.9 g/dL (12.0-18.0)
[2021-06-29 17:29] LABS: Device NASAL CANNULA; Modified Allen's Test Pass; Site Drawn LEFT RADIAL; pH ABG 7.518 (7.350-7.450)
[2021-06-29] MEDS: methylPREDNISolone SOD SUCC 125 MG VIAL IV PUSH (17:55)
[2021-06-29 18:09] LABS: Basophils Percent Auto 0.4 % (0.2-1.2); Eosinophils Percent Auto 0.8 % (0-4.4); Hematocrit 37.9 % (37.0-47.0); Hemoglobin 13.1 g/dL (12.0-15.0); Immature Granulocyte Absolute 0.04 K/mm3 (0.00-0.031); Immature Granulocyte Percent A 0.8 % (0-0.5); Lymphocytes Absolute Auto 0.48 K/mm3 (0.9-3.2); Mean Corpuscular HGB Conc 34.6 g/dl (32-36); Mean Corpuscular Volume 89.8 fl (80-100); Mean Platelet Volume 8.5 fl (7.4-10.4); Monocytes Absolute Auto 0.3 K/mm3 (0.1-0.6); Monocytes Percent Auto 7.1 % (2.6-8.5); Neutrophils Absolute Auto 3.9 K/mm3 (1.3-6.7); Neutrophils Percent Auto 80.9 % (45.5-73.1); Platelet Count Result 351 k/mm3 (150-375); Red Blood Count 4.22 M/mm3 (4.2-5.4); Red Cell Distribution Width 12.9 % (11.5-14.5); White Blood Count 4.8 K/mm3 (4.5-10.0)
[2021-06-29 18:18] LABS: Lactic Acid Reflex 1.5 mmol/L (0.7-2.1)
[2021-06-29 18:19] LABS: INR 1.1; Prothrombin Time 14.4 Seconds (11.1-14.7)
[2021-06-29 18:22] LABS: D Dimer 2.17 ug/mL (<0.48)
[2021-06-29 18:28] LABS: Alanine Aminotransferase 48 U/L (4-35); Albumin Level 3.9 g/dL (3.5-5.1); Alkaline Phosphatase 83 U/L (38-126); Anion Gap 12 mmol/L (8-16); Aspartate Amino Transferase 42 U/L (14-36); Bilirubin,Total 0.7 mg/dL (0.2-1.3); Blood Urea Nitrogen 16 mg/dL (7-17); Calcium 9.1 mg/dL (8.4-10.2); Carbon Dioxide 24 mmol/L (22-30); Chloride 97 mmol/L (98-107); Estimated CRCL calculation 74 ml/min; Estimated Glomerular Filt Rate > 60; Glucose 118 mg/dL (65-110); Potassium 3.5 mmol/L (3.4-5.0); Sodium 133 mmol/L (137-145)
[2021-06-29 18:31] LABS: NT Pro B Type Natriuretic Pept 32 pg/mL (5-100); Troponin I < 0.012 ng/mL (0.000-0.034)
[2021-06-29 18:47] LABS: CRP 12.9 mg/dL (<1.0); SARS-CoV-2 RNA PCR Positive
--- NOTE | 2021-06-29 19:24 | PC.NURSE ---
Report to HALIMA Bagley She assumed care of pt. at this time. 1900 contacted pt. daughter horace to update of pt. status. number [phone]
--- NOTE | 2021-06-29 21:27 | PM.IMHP ---
H&P: HPI History of Present Illness Date/Time: 06/29/21 21:27 Chief Complaint: Shortness of breath Narrative: 50-year-old female with past medical history of obstructive sleep apnea and COPD who presented to the ER with worsening shortness of breath for 1 week. Patient has been having ill symptoms since around [place]. She has had a productive cough for over 2 weeks. Her cough is productive of clear thick sputum. Is been accompanied by nasal congestion but she denies significant rhinorrhea. She has also had multiple COVID test at work. She is not vaccinated against COVID. 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 Her was ill with similar symptoms around [place] but his symptoms resolved after 5 days. She denies postnasal drip or sore throat. She came to the ER 06/22/2021 and had a COVID PCR test that was negative. She was discharged home on steroid Dosepak. Her symptoms did not improve with Dosepak. Her symptoms worsened significantly on the and she called her sports recruiter who prescribed her doxycycline and nebulizer treatments. She reported on the that she started having hypoxia with oxygen saturations between 88 and 92%. She reported that with ambulation her pulse ox was dropping further. She has never required oxygen in the past. She completed her steroid dose pack on the . She reports that her symptoms became so severe she could not breathe even when are CPAP resting in bed. In the ER the patient's oxygen saturations dropped to 88% on room air. She reports that she does not have a thermometer at home. She was having episodes of chills and feeling clammy in the ER but was afebrile. She has been having some mild diarrhea at home that is persisted. She reports of loose stools are once or twice a day. She has had decreased appetite due to nausea. She has had generalized myalgias. She reports the feeling heaviness in her chest and chest discomfort with coughing. She denies any lower extremity edema. She states that she feels she is dehydrated. She reports that than nebulizers and doxycycline did not help with her symptoms. She reports that she did not give vaccinated for COVID because she had questions regarding the vaccine. She did not understand why people would have to have boosters if the vaccine supposedly work. Review of Systems Review of Systems: 12 systems were reviewed with pertinent positives and negatives per HPI. Except as documented in the HPI, all other systems were reviewed and are negative. [facility] Past Medical History Medical History (Updated 06/30/21 @ 07:57 by Marii Balderas DO) Anxiety Chronic obstructive pulmonary disease PFTs 06/27/2020: Mild obstructive abnormality without significant improvement with bronchodilators. Study without significant change compared to 2018. Diastolic dysfunction Echocardiogram 2018 demonstrated diastolic dysfunction with elevated left heart pressures EF 55-60% Eczema Former smoker Hypertension Nodule of right lung With stable CT scan January 2021. Exam consistent with granulomatous disease Normal nuclear stress test (08/2020) KAREN (obstructive sleep apnea) CPAP of 11 Rosacea Surgical History Surgical History (Updated 06/30/21 @ 07:57 by Marii Balderas DO) History of laparoscopic cholecystectomy (2014) History of sinus surgery History of tonsillectomy and adenoidectomy History of tubal ligation Family History Family History (Updated 06/30/21 @ 07:48 by Marii Balderas DO) Sibling Depression Patient's sister is in good health Patient's brother is in good health Mother , Age 52 Acute myocardial infarction Father , Age 30s Trauma Other Family history of gastrointestinal disorder Hypertension Social History Social History (Updated 06/30/21 @ 07:56 by Marii Balderas DO) Social History: She reports that she and her have been together for over 30 years but have only been for
[2021-06-30] VITALS (11 sets, daily range): BP systolic 102–137; BP diastolic 58–75; PULSE 74–93; RESP 14–22; TEMP 35.8–36.6; O2SAT 88–99; BMI 39.5
[2021-06-30 07:20] LABS: Basophils Percent Auto 0.4 % (0.2-1.2); Hemoglobin 11.6 g/dL (12.0-15.0); Immature Granulocyte Absolute 0.03 K/mm3 (0.00-0.031); Immature Granulocyte Percent A 1.1 % (0-0.5); Lymphocytes Absolute Auto 0.33 K/mm3 (0.9-3.2); Lymphocytes Percent Auto 11.8 % (18.3-44.2); Mean Corpuscular HGB Conc 35.2 g/dl (32-36); Mean Corpuscular Hemoglobin 30.6 pg (26-34); Mean Corpuscular Volume 87.1 fl (80-100); Mean Platelet Volume 8.6 fl (7.4-10.4); Monocytes Absolute Auto 0.1 K/mm3 (0.1-0.6); Monocytes Percent Auto 3.9 % (2.6-8.5); Neutrophils Absolute Auto 2.3 K/mm3 (1.3-6.7); Neutrophils Percent Auto 82.8 % (45.5-73.1); Platelet Count Result 364 k/mm3 (150-375); Red Blood Count 3.79 M/mm3 (4.2-5.4); Red Cell Distribution Width 12.5 % (11.5-14.5); White Blood Count 2.8 K/mm3 (4.5-10.0)
[2021-06-30 07:41] LABS: Alanine Aminotransferase 43 U/L (4-35); Albumin Level 3.7 g/dL (3.5-5.1); Alkaline Phosphatase 76 U/L (38-126); Anion Gap 10 mmol/L (8-16); Aspartate Amino Transferase 31 U/L (14-36); Bilirubin,Total 0.5 mg/dL (0.2-1.3); Blood Urea Nitrogen 18 mg/dL (7-17); Calcium 8.9 mg/dL (8.4-10.2); Carbon Dioxide 21 mmol/L (22-30); Chloride 101 mmol/L (98-107); Estimated CRCL calculation 93 ml/min; Estimated Glomerular Filt Rate > 60; Glucose 162 mg/dL (65-110); Potassium 3.7 mmol/L (3.4-5.0); Sodium 132 mmol/L (137-145)
[2021-06-30] MEDS: ENOXAPARIN 40 MG/0.4 ML SYRINGE SUB-Q (08:46)
[2021-06-30] MEDS: DEXAMETHASONE 2 MG TABLET 6 MG PO (08:46)
[2021-06-30] MEDS: lisinopriL 10 MG TABLET PO (08:48)
[2021-06-30] MEDS: hydroCHLOROthiazide 12.5 MG CAPSULE PO (08:48)
[2021-06-30] MEDS: VENLAFAXINE HCL XR 75 MG CAP.ER.24H 150 MG PO (08:48)
[2021-06-30] MEDS: MONTELUKAST SODIUM 10 MG TABLET PO (08:48)
[2021-06-30] MEDS: ALBUTEROL SULFATE (*SP) AEROSOL 1 PUFF 4 PUFF INHALATION ×3 (08:54→21:03)
[2021-06-30] MEDS: FLUTICASONE/SALMETEROL 115-21 MCG INHALER 1 PUFF 2 PUFF INHALATION (08:54)
--- NOTE | 2021-06-30 09:58 | PM.IMPN ---
Progress Note: A&P Assessment and Plan (1) Pneumonia due to 2019 novel coronavirus: Code(s): U07.1 - COVID-19; J12.82 - Pneumonia due to coronavirus disease 2019 Status: Acute Assessment and Plan: Isolation, supplemental oxygen Albuterol, Mucinex, dexamethasone,Remdesivir, Flonase, Lovenox, singular increasing oxygen requirement today with worsening dypnea and tachypnea CTA ruled out PE and ruled in COVID pneumonia Zofran for any nausea vomiting Needs to get COVID vaccine series after fully recovered in a month Checking inflammatory lab markers now (2) Acute respiratory failure with hypoxia: Code(s): J96.01 - Acute respiratory failure with hypoxia Status: Acute Assessment and Plan: Patient has acute hypoxic respiratory failure due to COVID pneumonia complicated by underlying COPD. supplemental oxygen ABG as needed Encouraged patient to rest or sleep with head of bed raised or laterally or prone EKG yesterday was sinus tach CTA showed: Extensive bilateral pulmonary infiltrates, likely due to Covid pneumonia; Emphysema; No evidence of pulmonary embolism see above plan for pneumonia and below KAREN plan (3) KAREN (obstructive sleep apnea): Code(s): G47.33 - Obstructive sleep apnea (adult) (pediatric) Status: Acute Assessment and Plan: Use home BiPAP machine or hospital BiPAP overnight Monitor with continuous cardiac ekg monitor Patient's home CPAP has been ordered with oxygen bleed in. Subjective Date/time seen: 06/30/21 09:58 Elaine was having some difficulty breathing when I went to see her. Her oxygen requirement had increased from 2 L up to 4-6 L. She was lying on her right side in bed. She was tachypneic and taking shallow quick breaths. I did have to remind her to close her mouth and breath in through her nose and to slow her breathing down. She did seem to do better after that. She was setting 99% this afternoon on 4 L nasal cannula. She was not having any headaches, chest pain, chest pressure or palpitations. She is not having any nausea vomiting or diarrhea today she stated she had vomiting at home prior to admission. I advised her to start using her incentive spirometer and ordered it. Will continue her respiratory treatments and COVID antiviral therapy. She stated that she did not get a COVID vaccine this year nor did her . Her own children and grand children tested positive for COVID around June 09. Her had COVID and did recover from it. After much discussion with the patient and with the hospital pharmacist, we have decided that she does qualify and to give the patient Remdesivir. While she had some respiratory symptoms since , there has been no confirmation that she had COVID. In fact she took 4 home COVID tests between and June 22, and they were negative. And then on June 22, 2021, she tested negative for COVID here at [place]. So when she tested positive for COVID yesterday in the ER, that was her 1st confirmation of COVID infection for her. Review of Systems Review of Systems: All systems reviewed & are unremarkable except as noted in HPI and below Constitutional: Constitutional: Reports as per HPI, Reports chills, Reports fatigue, Reports fever(s) (low grade 99) and Reports weakness Eyes: Eyes: Reports as per HPI, Denies exophthalmos, Denies diplopia, Denies floaters and Denies loss of peripheral vision ENT: Reports as per HPI, Reports Normal hearing present, Denies facial pain, Denies headache(s), Denies odynophagia and Denies tinnitus Cardiovascular: Cardiovascular: Reports as per HPI, Reports chest pain, Denies pedal edema, Denies leg edema, Denies radiating jaw, neck or arm pain and Reports dyspnea Respiratory: Respiratory: Reports as per HPI, Reports chest congestion, Reports cough, Denies hemoptysis, Reports dyspnea, Reports dyspnea on exertion and Reports wheezing Gastrointestinal: Gastrointestinal: Re
[2021-06-30 19:22] LABS: INR 1.1; Prothrombin Time 13.8 Seconds (11.1-14.7)
[2021-06-30 19:34] LABS: Alanine Aminotransferase 38 U/L (4-35); Estimated CRCL calculation 93 ml/min; Estimated Glomerular Filt Rate > 60
[2021-06-30 19:37] LABS: Magnesium 2.5 mg/dL (1.6-2.3); Phosphorus 3.3 mg/dL (2.5-4.5)
[2021-06-30 19:40] LABS: CRP 8.3 mg/dL (<1.0); Lactate Dehydrogenase 753 U/L (313-618)
[2021-06-30 19:45] LABS: NT Pro B Type Natriuretic Pept 139 pg/mL (5-100)
[2021-06-30] MEDS: REMDESIVIR 200 MG/NS 250 ML 200 MG/250 ML BAG 250 MG IVPB (20:16)
[2021-06-30] MEDS: guaiFENesin 12 HR 600 MG TABCR PO (20:16)
[2021-07-01] VITALS (7 sets, daily range): BP systolic 108–115; BP diastolic 63–76; PULSE 64–78; RESP 16–22; TEMP 35.8–36.8; O2SAT 95–100
[2021-07-01] MEDS: ALBUTEROL SULFATE (*SP) AEROSOL 1 PUFF 4 PUFF INHALATION ×4 (02:16→21:25)
[2021-07-01 07:35] LABS: INR 1.1; Prothrombin Time 13.8 Seconds (11.1-14.7)
[2021-07-01 07:38] LABS: Alanine Aminotransferase 35 U/L (4-35); Estimated CRCL calculation 82 ml/min; Estimated Glomerular Filt Rate > 60
[2021-07-01] MEDS: FLUTICASONE/SALMETEROL 115-21 MCG INHALER 1 PUFF 2 PUFF INHALATION ×2 (08:34→21:25)
[2021-07-01] MEDS: MONTELUKAST SODIUM 10 MG TABLET PO (09:13)
[2021-07-01] MEDS: ENOXAPARIN 40 MG/0.4 ML SYRINGE SUB-Q (09:13)
[2021-07-01] MEDS: VENLAFAXINE HCL XR 75 MG CAP.ER.24H 150 MG PO (09:13)
[2021-07-01] MEDS: hydroCHLOROthiazide 12.5 MG CAPSULE PO (09:13)
[2021-07-01] MEDS: DEXAMETHASONE 2 MG TABLET 6 MG PO (09:14)
[2021-07-01] MEDS: guaiFENesin 12 HR 600 MG TABCR PO ×2 (09:14→20:11)
[2021-07-01] MEDS: lisinopriL 10 MG TABLET PO (09:14)
--- NOTE | 2021-07-01 11:25 | PM.IMPN ---
Progress Note: A&P Assessment and Plan (1) Pneumonia due to 2019 novel coronavirus: Code(s): U07.1 - COVID-19; J12.82 - Pneumonia due to coronavirus disease 2019 Status: Acute Assessment and Plan: Isolation, supplemental oxygen Albuterol, Mucinex, dexamethasone,Remdesivir, Flonase, Lovenox, singular increasing oxygen requirement today with worsening dypnea and tachypnea CTA ruled out PE and ruled in COVID pneumonia Zofran for any nausea vomiting Needs to get COVID vaccine series after fully recovered in a month Checking inflammatory lab markers now (2) Acute respiratory failure with hypoxia: Code(s): J96.01 - Acute respiratory failure with hypoxia Status: Acute Assessment and Plan: Patient has acute hypoxic respiratory failure due to COVID pneumonia complicated by underlying COPD. supplemental oxygen ABG as needed Encouraged patient to rest or sleep with head of bed raised or laterally or prone EKG yesterday was sinus tach CTA showed: Extensive bilateral pulmonary infiltrates, likely due to Covid pneumonia; Emphysema; No evidence of pulmonary embolism see above plan for pneumonia and below KAREN plan (3) KAREN (obstructive sleep apnea): Code(s): G47.33 - Obstructive sleep apnea (adult) (pediatric) Status: Acute Assessment and Plan: Use home BiPAP machine or hospital BiPAP overnight Monitor with continuous cardiac property assessment monitor Patient's home CPAP has been ordered with oxygen bleed in. Additional Plan 07/01/2021 Patient has mild shortness of breath, continues to use oxygen. Plan is to continue with remdesivir, dexamethasone and antibiotics. Monitor oxygenation. Repeat x-ray and lab in the morning. Subjective Date/time seen: 07/01/21 11:25 Patient was seen during the morning rounds today. Patient still have mild shortness of breath, no chest pain. No pain, no nausea, no vomiting, mood stable. Review of Systems Review of Systems: All systems reviewed & are unremarkable except as noted in HPI and below Constitutional: Constitutional: Reports as per HPI, Reports chills, Reports fatigue, Reports fever(s) (low grade 99), Denies headache(s) and Reports weakness Eyes: Eyes: Reports as per HPI, Denies exophthalmos, Denies diplopia, Denies floaters and Denies loss of peripheral vision ENT: Reports as per HPI, Reports Normal hearing present, Denies facial pain, Denies headache(s), Denies odynophagia and Denies tinnitus Cardiovascular: Cardiovascular: Reports as per HPI, Reports chest pain, Denies pedal edema, Denies leg edema, Denies radiating jaw, neck or arm pain, Reports dyspnea and Reports dyspnea on exertion Respiratory: Respiratory: Reports as per HPI, Reports chest congestion, Reports cough, Denies hemoptysis, Reports dyspnea, Reports dyspnea on exertion and Reports wheezing Gastrointestinal: Gastrointestinal: Reports as per HPI, Denies abdominal pain, Denies melena, Denies bloating, Denies hematochezia, Reports diarrhea, Reports nausea, Denies odynophagia, Denies vomiting and Denies hematemesis Genitourinary: Genitourinary: Reports as per HPI and Denies flank pain Musculoskeletal: Musculoskeletal: Reports as per HPI Integumentary/Breasts: Skin/Breast: Reports as per HPI Neurologic: Reports as per HPI, Reports Normal hearing present, Denies headache(s) and Reports weakness Psychiatric: Psychiatric: Reports as per HPI Endocrine: Endocrine: Reports fatigue Allergic/Immunologic: Allergic/Immunologic: Reports wheezing Exam Narrative: PHYSICAL EXAM: WEIGHT 101.3 kg BMI 39.6 General: Acutely ill-appearing, quick and shallow respirations, obese HEENT: Crowded posterior oropharynx, no oral pharyngeal erythema, mucous membranes are moist, no scleral icterus, nasal cannula in place, large neck circumference Respiratory: Marked conversational tachypnea, respiratory rate improved with rest, decreased breath sounds bilaterally, wheezing in upper lobes, crackles laterall
[2021-07-01] MEDS: REMDESIVIR 100 MG/NS 250 ML 100 MG/250 ML BAG 250 MG IVPB (20:12)
[2021-07-02] VITALS (8 sets, daily range): BP systolic 92–125; BP diastolic 56–70; PULSE 63–91; RESP 16–24; TEMP 36.2–36.8; O2SAT 95–100
[2021-07-02] MEDS: ALBUTEROL SULFATE (*SP) INHALER 4 PUFF INHALATION ×4 (03:04→20:45)
[2021-07-02 07:05] LABS: Hematocrit 33.2 % (37.0-47.0); Hemoglobin 11.4 g/dL (12.0-15.0); Mean Corpuscular HGB Conc 34.3 g/dl (32-36); Mean Corpuscular Hemoglobin 30.5 pg (26-34); Mean Corpuscular Volume 88.8 fl (80-100); Mean Platelet Volume 8.9 fl (7.4-10.4); Platelet Count Result 332 k/mm3 (150-375); Red Blood Count 3.74 M/mm3 (4.2-5.4); Red Cell Distribution Width 12.3 % (11.5-14.5); White Blood Count 6.4 K/mm3 (4.5-10.0)
[2021-07-02 07:28] LABS: Alanine Aminotransferase 28 U/L (4-35); Albumin Level 3.3 g/dL (3.5-5.1); Alkaline Phosphatase 63 U/L (38-126); Anion Gap 8 mmol/L (8-16); Aspartate Amino Transferase 20 U/L (14-36); Bilirubin,Total 0.3 mg/dL (0.2-1.3); Blood Urea Nitrogen 21 mg/dL (7-17); Calcium 8.7 mg/dL (8.4-10.2); Carbon Dioxide 26 mmol/L (22-30); Chloride 101 mmol/L (98-107); Estimated CRCL calculation 82 ml/min; Estimated Glomerular Filt Rate > 60; Glucose 119 mg/dL (65-110); Potassium 3.7 mmol/L (3.4-5.0); Sodium 135 mmol/L (137-145)
[2021-07-02 07:29] LABS: INR 1.1; Prothrombin Time 14.1 Seconds (11.1-14.7)
[2021-07-02] MEDS: MONTELUKAST SODIUM 10 MG TABLET PO (08:30)
[2021-07-02] MEDS: VENLAFAXINE HCL XR 75 MG CAP.ER.24H 150 MG PO (08:30)
[2021-07-02] MEDS: DEXAMETHASONE 2 MG TABLET 6 MG PO (08:30)
[2021-07-02] MEDS: hydroCHLOROthiazide 12.5 MG CAPSULE PO (08:30)
[2021-07-02] MEDS: guaiFENesin 12 HR 600 MG TABCR PO ×2 (08:30→20:18)
[2021-07-02] MEDS: ENOXAPARIN 40 MG/0.4 ML SYRINGE SUB-Q (08:30)
[2021-07-02] MEDS: lisinopriL 10 MG TABLET PO (08:31)
[2021-07-02] MEDS: FLUTICASONE/SALMETEROL 115-21 MCG (*SP) INHALER 2 PUFF INHALATION ×2 (09:26→20:45)
[2021-07-02] MEDS: ACETAMINOPHEN 325 MG TABLET 650 MG PO (11:46)
--- NOTE | 2021-07-02 14:21 | PM.IMPN ---
Progress Note: A&P Assessment and Plan (1) Pneumonia due to 2019 novel coronavirus: Code(s): U07.1 - COVID-19; J12.82 - Pneumonia due to coronavirus disease 2019 Status: Acute Assessment and Plan: Isolation, supplemental oxygen Albuterol, Mucinex, dexamethasone,Remdesivir, Flonase, Lovenox, singular increasing oxygen requirement today with worsening dypnea and tachypnea CTA ruled out PE and ruled in COVID pneumonia Zofran for any nausea vomiting Needs to get COVID vaccine series after fully recovered in a month hopeful DC in 1-2 days time (2) Acute respiratory failure with hypoxia: Code(s): J96.01 - Acute respiratory failure with hypoxia Status: Acute Assessment and Plan: Patient has acute hypoxic respiratory failure due to COVID pneumonia complicated by underlying COPD. supplemental oxygen CTA showed: Extensive bilateral pulmonary infiltrates, likely due to Covid pneumonia; Emphysema; No evidence of pulmonary embolism Pt is doing prone positioning in room, cxr reviwed (3) KAREN (obstructive sleep apnea): Code(s): G47.33 - Obstructive sleep apnea (adult) (pediatric) Status: Acute Assessment and Plan: Use home BiPAP machine or hospital BiPAP overnight . Additional Plan 07/01/2021 Patient has mild shortness of breath, continues to use oxygen. Plan is to continue with remdesivir, dexamethasone and antibiotics. Monitor oxygenation. 07/02/21 Pt is on 2 liters of oxygen continues to improve, Hopeful dc in 1-2 days time doing well with prone positioning. Subjective Date/time seen: 07/02/21 14:21 Interval history: 50-year-old female with past medical history of obstructive sleep apnea and COPD who presented to the ER with worsening shortness of breath for 1 week. Patient has been having ill symptoms since around [place]. She has had a productive cough for over 2 weeks. Her cough is productive of clear thick sputum. Is been accompanied by nasal congestion but she denies significant rhinorrhea. She has also had multiple COVID test at work. She is not vaccinated against COVID. 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 Her was ill with similar symptoms around [place] but his symptoms resolved after 5 days. She denies postnasal drip or sore throat. She came to the ER 06/22/2021 and had a COVID PCR test that was negative. She was discharged home on steroid Dosepak. Her symptoms did not improve with Dosepak. Her symptoms worsened significantly on the and she called her psychology fellow who prescribed her doxycycline and nebulizer treatments. She reported on the that she started having hypoxia with oxygen saturations between 88 and 92%. She reported that with ambulation her pulse ox was dropping further. She has never required oxygen in the past. She completed her steroid dose pack on the . Review of Systems Review of Systems: All systems reviewed & are unremarkable except as noted in HPI and below Exam Narrative: General: Acutely ill-appearing, on 2 liters Respiratory: Clear lungs Cardiovascular: Regular rate, regular rhythm Gastrointestinal: Soft, distended, nontender, positive bowel sounds Skin: Mild pallor, non jaundice Musculoskeletal: No clubbing, cyanosis or edema Neurological: Alert and oriented, speech is clear, no facial asymmetry, moves all extremities equally Psychiatric: Appropriate mood and affect, pleasant and cooperative : Deferred Hematologic/lymphatic: No anterior cervical or submandibular lymphadenopathy, no petechiae, no bruit Objective Data Vital Signs Vital Signs: Vital Signs - 24 hr 07/01/21 16:00 07/01/21 20:00 07/02/21 00:00 Temperature 36.4 C 35.8 C L 36.2 C L Pulse Rate 66 72 74 Respiratory Rate 20 22 H 20 Blood Pressure 109/63 108/70 107/65 Pulse Oximetry 99 95 98 07/02/21 04:00 07/02/21 08:00 07/02/21 12:00 Temperature 36.6 C 36.8 C 36.3 C L Pulse Rate 91 63 79 Respiratory
[2021-07-02] MEDS: REMDESIVIR 100 MG/NS 250 ML 100 MG/250 ML BAG 250 MG IVPB (20:18)
--- NOTE | 2021-07-02 22:15 | PCRCNOTE ---
Patient refuses CPAP at [facility]. States she doesn't like it. I don't like the way it feels .
[2021-07-03] VITALS (10 sets, daily range): BP systolic 100–116; BP diastolic 55–74; PULSE 63–85; RESP 16–20; TEMP 35.8–37; O2SAT 94–99
[2021-07-03] MEDS: ALBUTEROL SULFATE (*SP) INHALER 4 PUFF INHALATION ×4 (02:21→21:41)
[2021-07-03 06:57] LABS: Alanine Aminotransferase 34 U/L (4-35); Estimated CRCL calculation 82 ml/min; Estimated Glomerular Filt Rate > 60
[2021-07-03 07:09] LABS: INR 1.2; Prothrombin Time 14.8 Seconds (11.1-14.7)
[2021-07-03] MEDS: ENOXAPARIN 40 MG/0.4 ML SYRINGE SUB-Q (09:00)
[2021-07-03] MEDS: DEXAMETHASONE 2 MG TABLET 6 MG PO (09:00)
[2021-07-03] MEDS: VENLAFAXINE HCL XR 75 MG CAP.ER.24H 150 MG PO (09:01)
[2021-07-03] MEDS: MONTELUKAST SODIUM 10 MG TABLET PO (09:01)
[2021-07-03] MEDS: lisinopriL 10 MG TABLET PO (09:01)
[2021-07-03] MEDS: guaiFENesin 12 HR 600 MG TABCR PO ×2 (09:01→21:52)
[2021-07-03] MEDS: hydroCHLOROthiazide 12.5 MG CAPSULE PO (09:01)
[2021-07-03] MEDS: FLUTICASONE/SALMETEROL 115-21 MCG (*SP) INHALER 2 PUFF INHALATION ×2 (09:54→21:41)
--- NOTE | 2021-07-03 19:31 | PM.IMPN ---
Progress Note: A&P Assessment and Plan (1) Pneumonia due to 2019 novel coronavirus: Code(s): U07.1 - COVID-19; J12.82 - Pneumonia due to coronavirus disease 2019 Status: Acute Assessment and Plan: Isolation, supplemental oxygen Albuterol, Mucinex, dexamethasone,Remdesivir, Flonase, Lovenox, singular increasing oxygen requirement today with worsening dyspnea and tachypnea CTA ruled out PE and ruled in COVID pneumonia Zofran for any nausea vomiting Needs to get COVID vaccine series after fully recovered in 90 days (2) Acute respiratory failure with hypoxia: Code(s): J96.01 - Acute respiratory failure with hypoxia Status: Acute Assessment and Plan: Patient has acute hypoxic respiratory failure due to COVID pneumonia complicated by underlying COPD. supplemental oxygen CTA showed: Extensive bilateral pulmonary infiltrates, likely due to Covid pneumonia; Emphysema; No evidence of pulmonary embolism Pt is doing prone positioning in room, cxr reviwed (3) KAREN (obstructive sleep apnea): Code(s): G47.33 - Obstructive sleep apnea (adult) (pediatric) Status: Acute Assessment and Plan: Use home BiPAP machine or hospital BiPAP overnight . Additional Plan 07/01/2021 Patient has mild shortness of breath, continues to use oxygen. Plan is to continue with remdesivir, dexamethasone and antibiotics. Monitor oxygenation. 07/02/21 Pt is on 2 liters of oxygen continues to improve, Hopeful dc in 1-2 days time doing well with prone positioning. 07/03/21 Her oxygen saturation has remained stable on 2L since her admission. day 4/5 COVID treatment home o2 eval tomorrow inflammatory markers cxr in am Should be able to go home when finishing treatment likely on home O2 if inflammatory markers are down trending tomorrow. Subjective Date/time seen: 07/03/21 19:31 Patient states that she is feeling better but she has a sampling on her and is reporting intermittent chills and sweats especially when she is sleeping. She has had no fever but I advised her that we will look for alternative source of infection while we continue her COVID treatment. Her oxygen saturation has remained stable on 2 L since her admission. Should be able to go home on home O2 in a couple of days if inflammatory markers are down trending tomorrow. Exam Narrative: General: Acutely ill-appearing, on 2 liters Respiratory: Clear lungs Cardiovascular: Regular rate, regular rhythm Gastrointestinal: Soft, distended, nontender, positive bowel sounds Skin: Mild pallor, non jaundice Musculoskeletal: No clubbing, cyanosis or edema Neurological: Alert and oriented, speech is clear, no facial asymmetry, moves all extremities equally Psychiatric: Appropriate mood and affect, pleasant and cooperative : Deferred Hematologic/lymphatic: No anterior cervical or submandibular lymphadenopathy, no petechiae, no bruit Objective Data Vital Signs Vital Signs: Vital Signs - 24 hr 07/02/21 20:00 07/02/21 20:45 07/03/21 00:00 Temperature 97.9 F 97.6 F Pulse Rate 72 72 72 Respiratory Rate 20 20 20 Blood Pressure 115/70 100/72 Pulse Oximetry 96 98 07/03/21 02:35 07/03/21 04:00 07/03/21 08:00 Temperature 97.4 F L 96.6 F L Pulse Rate 72 68 63 Respiratory Rate 20 18 18 Blood Pressure 116/74 105/67 Pulse Oximetry 97 97 07/03/21 09:00 07/03/21 09:55 07/03/21 12:00 Temperature 96.5 F L Pulse Rate 75 Respiratory Rate 18 18 Blood Pressure 102/55 L Pulse Oximetry 94 94 97 07/03/21 16:00 Temperature 97.9 F Pulse Rate 85 Respiratory Rate 18 Blood Pressure 106/56 L Pulse Oximetry 99 Intake/Output Intake/Output: Intake & Output 06/30/21 07/01/21 07/02/21 07/03/21 23:59 23:59 23:59 23:59 Intake Total 630 1770 2009 1450 Output Total 300 500 Balance 330 1770 2009 950 Meds/Results Medications: Active Medications Generic Name Dose Route Start Last Admin Trade Name Lio
[2021-07-03] MEDS: REMDESIVIR 100 MG/NS 250 ML 100 MG/250 ML BAG 250 MG IVPB (21:51)
[2021-07-04] VITALS (12 sets, daily range): BP systolic 90–111; BP diastolic 50–73; PULSE 66–94; RESP 16–20; TEMP 36.4–37.1; O2SAT 84–99
[2021-07-04] MEDS: ALBUTEROL SULFATE (*SP) INHALER 4 PUFF INHALATION ×4 (01:54→21:40)
[2021-07-04 07:32] LABS: Basophils Percent Auto 0.2 % (0.2-1.2); Eosinophils Percent Auto 0.2 % (0-4.4); Hematocrit 34.4 % (37.0-47.0); Hemoglobin 11.8 g/dL (12.0-15.0); Immature Granulocyte Absolute 0.11 K/mm3 (0.00-0.031); Immature Granulocyte Percent A 1.7 % (0-0.5); Lymphocytes Absolute Auto 0.83 K/mm3 (0.9-3.2); Lymphocytes Percent Auto 13.1 % (18.3-44.2); Mean Corpuscular HGB Conc 34.3 g/dl (32-36); Mean Corpuscular Hemoglobin 31.1 pg (26-34); Mean Corpuscular Volume 90.8 fl (80-100); Mean Platelet Volume 8.9 fl (7.4-10.4); Monocytes Absolute Auto 0.5 K/mm3 (0.1-0.6); Monocytes Percent Auto 8.2 % (2.6-8.5); Neutrophils Absolute Auto 4.9 K/mm3 (1.3-6.7); Neutrophils Percent Auto 76.6 % (45.5-73.1); Platelet Count Result 331 k/mm3 (150-375); Red Blood Count 3.79 M/mm3 (4.2-5.4); Red Cell Distribution Width 12.6 % (11.5-14.5); White Blood Count 6.3 K/mm3 (4.5-10.0)
[2021-07-04 07:40] LABS: INR 1.1; Prothrombin Time 13.9 Seconds (11.1-14.7)
[2021-07-04 08:06] LABS: Alanine Aminotransferase 69 U/L (4-35); Albumin Level 3.2 g/dL (3.5-5.1); Alkaline Phosphatase 63 U/L (38-126); Anion Gap 8 mmol/L (8-16); Aspartate Amino Transferase 54 U/L (14-36); Bilirubin,Total 0.3 mg/dL (0.2-1.3); Blood Urea Nitrogen 15 mg/dL (7-17); CRP 1.1 mg/dL (<1.0); Calcium 8.8 mg/dL (8.4-10.2); Carbon Dioxide 27 mmol/L (22-30); Chloride 101 mmol/L (98-107); Estimated CRCL calculation 92 ml/min; Estimated Glomerular Filt Rate > 60; Glucose 100 mg/dL (65-110); Magnesium 2.4 mg/dL (1.6-2.3); Potassium 3.3 mmol/L (3.4-5.0); Sodium 136 mmol/L (137-145)
[2021-07-04 08:36] LABS: D Dimer 1.47 ug/mL (<0.48)
[2021-07-04] MEDS: MONTELUKAST SODIUM 10 MG TABLET PO (09:07)
[2021-07-04] MEDS: VENLAFAXINE HCL XR 75 MG CAP.ER.24H 150 MG PO (09:07)
[2021-07-04] MEDS: lisinopriL 10 MG TABLET PO (09:07)
[2021-07-04] MEDS: hydroCHLOROthiazide 12.5 MG CAPSULE PO (09:07)
[2021-07-04] MEDS: guaiFENesin 12 HR 600 MG TABCR PO ×2 (09:07→20:31)
[2021-07-04] MEDS: ENOXAPARIN 40 MG/0.4 ML SYRINGE SUB-Q (09:07)
[2021-07-04] MEDS: DEXAMETHASONE 2 MG TABLET 6 MG PO (09:07)
[2021-07-04] MEDS: FLUTICASONE/SALMETEROL 115-21 MCG (*SP) INHALER 2 PUFF INHALATION ×2 (10:00→21:40)
--- NOTE | 2021-07-04 12:43 | HOMEO2EVAL ---
Evaluation was performed at [facility] Home Oxygen Evaluation RC: Home Oxygen (O2) Evaluation Start: 07/03/21 19:33 Freq: ONCE Status: Active Protocol: RPE Activity Type Activity Date Activity User E-Sign Co-Sign Detail Recorded Client Recorded Date Recorded By Document 07/04/21 12:00 MARTHA [email or web address] 07/04/21 12:43 MARTHA Document 07/04/21 12:01 MARTHA [email or web address] 07/04/21 12:43 MARTHA Document 07/04/21 12:05 MARTHA [email or web address] 07/04/21 12:43 MARTHA Document 07/04/21 12:06 MARTHA [email or web address] 07/04/21 12:43 MARTHA Document 07/04/21 12:07 MARTHA [email or web address] 07/04/21 12:43 MARTHA Document 07/04/21 12:15 MARTHA [email or web address] 07/04/21 12:43 MARTHA 07/04/21 07/04/21 07/04/21 12:00 12:01 12:05 Home O2 Evaluation Test Phase Resting Resting Exercise Oxygen Delivery Room Air Nasal Cannula Nasal Cannula Oxygen Flow Rate (L/min) 1 1 Pulse Oximetry (90-100 %) 87 L 91 84 L Home Oxygen Evaluation Comments Treatment Charges O2 Evaluation - Inpatient 07/04/21 07/04/21 07/04/21 12:06 12:07 12:15 Home O2 Evaluation Test Phase Exercise Exercise Resting Oxygen Delivery Nasal Cannula Nasal Cannula Nasal Cannula Oxygen Flow Rate (L/min) 2 3 1 Pulse Oximetry (90-100 %) 85 L 89 L 92 Home Oxygen Evaluation Comments PT REQUIRES 1 L REST AND 3 L WITH ACTIVITY Treatment Charges
--- NOTE | 2021-07-04 12:44 | PCRCNOTE ---
HOME O2 EVAL DONE, PT NEEDS 1 L AT REST AND 3 L WITH ACTIVITY
--- NOTE | 2021-07-04 18:10 | PM.IMPN ---
Progress Note: A&P Assessment and Plan (1) Pneumonia due to 2019 novel coronavirus: Code(s): U07.1 - COVID-19; J12.82 - Pneumonia due to coronavirus disease 2019 Status: Acute Assessment and Plan: Acute respiratory failure currently recurrent to a 2 L oxygen supplementation; continue droplet Isolation. Currently patient is receiving Albuterol, Mucinex, dexamethasone,Remdesivir, Flonase, Lovenox, singular increasing oxygen requirement today with worsening dyspnea and tachypnea , patient has required from 1-3 L of oxygen today. CTA ruled out PE and ruled in COVID pneumonia Zofran for any nausea vomiting Needs to get COVID vaccine series after fully recovered in 90 days (2) Acute respiratory failure with hypoxia: Code(s): J96.01 - Acute respiratory failure with hypoxia Status: Acute Assessment and Plan: Patient has acute hypoxic respiratory failure due to COVID pneumonia complicated by underlying COPD. Continue supplemental oxygen; currently requiring only 1 L of oxygen. CTA showed: Extensive bilateral pulmonary infiltrates, likely due to Covid pneumonia; Emphysema; No evidence of pulmonary embolism. Patient is improving clinically. Will perform a home oxygen evaluation tomorrow. Pt is doing prone positioning in room, cxr reviwed (3) KAREN (obstructive sleep apnea): Code(s): G47.33 - Obstructive sleep apnea (adult) (pediatric) Status: Acute Assessment and Plan: Continue hospital BiPAP overnight . Additional Plan 07/01/2021 Patient has mild shortness of breath, continues to use oxygen. Plan is to continue with remdesivir, dexamethasone and antibiotics. Monitor oxygenation. 07/02/21 Pt is on 2 liters of oxygen continues to improve, Hopeful dc in 1-2 days time doing well with prone positioning. 07/03/21 Her oxygen saturation has remained stable on 2L since her admission. day 4/5 COVID treatment home o2 eval tomorrow inflammatory markers cxr in am Should be able to go home when finishing treatment likely on home O2 if inflammatory markers are down trending tomorrow. 07/04/21 Her oxygen saturation has remained stable on 1-3L since her admission. day 5/5 COVID treatment home o2 eval tomorrow inflammatory markers cxr in am Should be able to go home when finishing treatment likely on home O2 if inflammatory markers are down trending tomorrow. Subjective Date/time seen: 07/04/21 18:10 s: PATIENT WAS SEEN AND EXAMINED AT THE BEDSIDE. SHE IS FEELING BETTER. OXYGEN SATURATION REMAINED STABLE ON 2 L SINCE ADMISSION. Review of Systems Review of Systems: All systems reviewed & are unremarkable except as noted in HPI and below Constitutional: Constitutional: Reports as per HPI, Reports chills, Reports fatigue, Reports fever(s) (low grade 99), Denies headache(s) and Reports weakness Eyes: Eyes: Reports as per HPI, Denies exophthalmos, Denies diplopia, Denies floaters and Denies loss of peripheral vision ENT: Reports as per HPI, Reports Normal hearing present, Denies facial pain, Denies headache(s), Denies odynophagia and Denies tinnitus Cardiovascular: Cardiovascular: Reports as per HPI, Reports chest pain, Denies pedal edema, Denies leg edema, Denies radiating jaw, neck or arm pain, Reports dyspnea and Reports dyspnea on exertion Respiratory: Respiratory: Reports as per HPI, Reports chest congestion, Reports cough, Denies hemoptysis, Reports dyspnea, Reports dyspnea on exertion and Reports wheezing Gastrointestinal: Gastrointestinal: Reports as per HPI, Denies abdominal pain, Denies melena, Denies bloating, Denies hematochezia, Reports diarrhea, Reports nausea, Denies odynophagia, Denies vomiting and Denies hematemesis Genitourinary: Genitourinary: Reports as per HPI and Denies flank pain Musculoskeletal: Musculoskeletal: Reports as per HPI Integumentary/Breasts: Skin/Breast: Reports as per HPI Neurologic: Reports as per HPI, Reports Normal hearing present, Denies
[2021-07-04] MEDS: REMDESIVIR 100 MG/NS 250 ML 100 MG/250 ML BAG 250 MG IVPB (20:31)
[2021-07-05] VITALS: BP 104/54; PULSE 63; PULSE 90; RESP 18; TEMP 36.3; O2SAT 96
[2021-07-05 04:00] VITALS: BP 115/64; PULSE 92; RESP 20; TEMP 36.4; O2SAT 93
[2021-07-05] MEDS: ALBUTEROL SULFATE (*SP) INHALER 4 PUFF INHALATION ×3 (04:11→14:29)
[2021-07-05 08:00] VITALS: BP 106/65; PULSE 59; PULSE 84; RESP 14; TEMP 35.7; O2SAT 94; O2SAT 96
[2021-07-05 08:28] VITALS: O2SAT 95
[2021-07-05] MEDS: FLUTICASONE/SALMETEROL 115-21 MCG (*SP) INHALER 2 PUFF INHALATION (08:29)
[2021-07-05 09:06] LABS: Hematocrit 37.1 % (37.0-47.0); Hemoglobin 12.5 g/dL (12.0-15.0); Mean Corpuscular HGB Conc 33.7 g/dl (32-36); Mean Corpuscular Hemoglobin 30.6 pg (26-34); Mean Corpuscular Volume 90.9 fl (80-100); Mean Platelet Volume 8.8 fl (7.4-10.4); Platelet Count Result 382 k/mm3 (150-375); Red Blood Count 4.08 M/mm3 (4.2-5.4); Red Cell Distribution Width 12.8 % (11.5-14.5); White Blood Count 7.4 K/mm3 (4.5-10.0)
[2021-07-05 09:18] LABS: Anion Gap 9 mmol/L (8-16); Blood Urea Nitrogen 16 mg/dL (7-17); Calcium 8.9 mg/dL (8.4-10.2); Carbon Dioxide 26 mmol/L (22-30); Chloride 100 mmol/L (98-107); Estimated CRCL calculation 81 ml/min; Estimated Glomerular Filt Rate > 60; Glucose 108 mg/dL (65-110); Potassium 3.2 mmol/L (3.4-5.0); Sodium 135 mmol/L (137-145)
[2021-07-05] MEDS: lisinopriL 10 MG TABLET PO (09:39)
[2021-07-05] MEDS: hydroCHLOROthiazide 12.5 MG CAPSULE PO (09:39)
[2021-07-05] MEDS: VENLAFAXINE HCL XR 75 MG CAP.ER.24H 150 MG PO (09:39)
[2021-07-05] MEDS: ENOXAPARIN 40 MG/0.4 ML SYRINGE SUB-Q (09:39)
[2021-07-05] MEDS: guaiFENesin 12 HR 600 MG TABCR PO (09:39)
[2021-07-05] MEDS: DEXAMETHASONE 2 MG TABLET 6 MG PO (09:40)
[2021-07-05] MEDS: MONTELUKAST SODIUM 10 MG TABLET PO (09:40)
--- NOTE | 2021-07-05 11:35 | PM.DS ---
DS: Admitting Diagnosis Discharge Date 07/05/2021 Admitting Diagnosis 1) Pneumonia due to 2019 novel coronavirus: (2) Acute respiratory failure with hypoxia: (3) KAREN (obstructive sleep apnea): DS: Discharge Diagnosis Discharge Diagnosis (1) Pneumonia due to 2019 novel coronavirus: Code(s): U07.1 - COVID-19; J12.82 - Pneumonia due to coronavirus disease 2019 Status: Acute Assessment and Plan: Acute respiratory failure currently recurrent to a 2 L oxygen supplementation; continue droplet Isolation. Currently patient is receiving Albuterol, Mucinex, dexamethasone,Remdesivir, Flonase, Lovenox, singular increasing oxygen requirement today with worsening dyspnea and tachypnea , patient has required from 1-3 L of oxygen today. CTA ruled out PE and ruled in COVID pneumonia Zofran for any nausea vomiting Needs to get COVID vaccine series after fully recovered in 90 days (2) Acute respiratory failure with hypoxia: Code(s): J96.01 - Acute respiratory failure with hypoxia Status: Acute Assessment and Plan: Patient has acute hypoxic respiratory failure due to COVID pneumonia complicated by underlying COPD. Continue supplemental oxygen; currently requiring only 1 L of oxygen. CTA showed: Extensive bilateral pulmonary infiltrates, likely due to Covid pneumonia; Emphysema; No evidence of pulmonary embolism. Patient is improving clinically. Will perform a home oxygen evaluation tomorrow. Pt is doing prone positioning in room, cxr reviwed (3) KAREN (obstructive sleep apnea): Code(s): G47.33 - Obstructive sleep apnea (adult) (pediatric) Status: Acute Assessment and Plan: Continue hospital BiPAP overnight . DS: Summary Hospital Course Reason for hospitalization: Shortness of breath. Hospital Course: Please refer to admission H& P. Briefly, this is a 50-year-old female with past medical history of obstructive sleep apnea and COPD who presented to the ER with worsening shortness of breath for 1 week. P patient is not vaccinated against COVID. She came to the ER 06/22/2021 and had a COVID PCR test that was negative. She was discharged home on steroid Dosepak. Her symptoms did not improve with Dosepak. Her symptoms worsened significantly on the and she called her partner who prescribed her doxycycline and nebulizer treatments. She reported on the that she started having hypoxia with oxygen saturations between 88 and 92%. She reported that with ambulation her pulse ox was dropping further. She has never required oxygen in the past. She completed her steroid dose pack on the . Her COVID PCR came back positive on June 29, 2021. She was appropriately started on the exam it was [place], remdesivir and oxygen supplementation which is new. Patient carries a diagnosis of sleep apnea and uses a CPAP at home. Home O2 evaluation was done. Patient requires 1 L of oxygen with rest and 3 L of oxygen supplementation with activity. Patient has improved clinically. She is feeling better with improved strength. She still reports occasional cough. Patient can be discharged to the care of her primary care provider. She will follow up within 1 week of discharge with a tele visit. Status at Discharge Cognitive/behavioral status at discharge: At bedside. Functional status at discharge: independent ambulation Overall status at discharge: patient is progressing back to baseline Time Spent with Patient Time attestation: Total time spent providing and/or coordinating discharge services: 35 minutes. Time spent: Greater than 30 minutes Exam Narrative: General: Middle-aged lady lying bed in no acute distress. She is breathing oxygen onm 1 L via nasal cannula. Respiratory: Clear lungs Cardiovascular: Regular rate, regular rhythm Gastrointestinal: Soft, distended, nontender, positive bowel sounds Skin: Mild pallor, non jaundice Musculoskeletal: No clubbing, cyanosis or edema Neur
[2021-07-05 12:00] VITALS: BP 94/61; PULSE 79; PULSE 81; RESP 18; TEMP 35.8; O2SAT 95
[2021-07-05] MEDS: POTASSIUM CHLORIDE 20 MEQ TABLET.ER 40 MEQ PO ×2 (12:40→16:44)
[2021-07-05 16:00] VITALS: BP 124/79; PULSE 91; RESP 16; TEMP 37; O2SAT 98
== END 2021-07-05 17:05 | disposition home or self-care (01) | DRG 177 ==
LOC: ANHED 21:04 → ANH3MEDSUR 06-30 07:45
PROVIDERS: Internal Medicine; Nurse Practitioner; Admitting Provider Internal Medicine; Emergency Provider General Practice; PCP Internal Medicine; Visit Provider Hospitalist
DX: U07.1 COVID-19 (principal); J12.82 Pneumonia due to coronavirus disease 2019; J96.01 Acute respiratory failure with hypoxia; G47.33 Obstructive sleep apnea (adult) (pediatric); J43.9 Emphysema, unspecified; I10 Essential (primary) hypertension; Z79.899 Other long term (current) drug therapy; Z87.891 Personal history of nicotine dependence
CPT/HCPCS: 36415; 36600; 71045; 71275; 80048; 80053; 82375; 82565; 82728; 82805; 83050; 83605; 83615; 83735; 83880; 84100; 84145; 84460; 84484; 85025; 85027; 85380; 85610; 85730; 86140; 87040; 87804; 93005; 94618; 94640; 96374; 99285; A9270; C9803; J0456; J0696; J1650; J2930; J8540; Q9967; U0003; U0005

== ENCOUNTER 2021-08-16 07:08 | Outpatient (CLI) | payer OTHER, SELFPAY ==
--- NOTE | ~2021-08-16 | XR_ITS ---
EXAMINATION: XR chest 2V DATE: 08/16/2021 09:05 INDICATION: Shortness of breath TECHNIQUE: PA and lateral views of the chest are obtained. COMPARISON: 07/04/2021 FINDINGS: Patchy bilateral airspace opacities persist but have decreased. There is no pleural effusio n or pneumothorax. The cardiomediastinal silhouette is normal. There is mild thoracic spondylosis. Galeano rgical clips in the right upper quadrant are likely from prior cholecystectomy. IMPRESSION: 1. Persistent but improved bilateral airspace opacities, consistent with resolving pneumonia. Reviewed, dictated and finalized at location D. [facility] IMPRESSION: 1. Persistent but improved bilateral airspace opacities, consistent with resolv ing pneumonia.
[2021-08-16 07:53] VITALS: PULSE 103; O2SAT 98
[2021-08-16 07:59] VITALS: PULSE 121; O2SAT 87
[2021-08-16 08:00] VITALS: PULSE 126; O2SAT 93
[2021-08-16 08:03] VITALS: PULSE 99; O2SAT 96
--- NOTE | 2021-08-16 14:41 | WPDPFTINT ---
PFT Procedure Performed PFT Procedure Performed Spirometry with Pre/Post Bronchodilator Plethysmography (Lung Vol) Diffusing Cap (DLCO) Flow Vol Loop PFT Interpretation Lung volumes were measured with the body plethysmography method. The diminished expiratory reserve volume is due to obesity. The remaining lung volumes are unremarkable. Spirometry showed diminished expiratory flow rates and a diminished FEV1 to FVC ratio 48%, suggestive of obstructive airway disease. Following administration of a bronchodilator there was no significant change in the expiratory flow rates. Lung diffusion capacity is moderately reduced at 50% predicted. The flow volume loop is consistent with suboptimal patient effort or less likely with upper airway obstruction related to intrathoracic causes based on the configuration of the expiratory limp. Clinical correlation advised. In comparison to previous study in 2020, the post bronchodilator measurements of FVC and FEV1 are now lower by 500 mL each. Lung volumes and total lung capacity are essentially unchanged. impression: Suboptimal patient effort. Moderately severe obstructive airway disease with no response to bronchodilators.
== END 2021-08-16 07:09 | disposition home or self-care (01) ==
PROVIDERS: PCP Internal Medicine; Visit Provider Physician Assistant
DX: J44.9 Chronic obstructive pulmonary disease, unspecified (principal); R06.09 Other forms of dyspnea; J12.82 Pneumonia due to coronavirus disease 2019; U07.1 COVID-19
CPT/HCPCS: 71046; 94060; 94618; 94726; 94729

== ENCOUNTER 2021-11-24 12:47 | Outpatient (CLI) | payer OTHER, SELFPAY ==
[2021-11-24 13:17] VITALS: PULSE 81; O2SAT 99
[2021-11-24 13:18] VITALS: PULSE 102; O2SAT 99
[2021-11-24 13:20] VITALS: PULSE 111; O2SAT 95
--- NOTE | 2021-11-24 13:31 | HOMEO2EVAL ---
Evaluation was performed at [facility] Home Oxygen Evaluation RC: Home Oxygen (O2) Evaluation Start: 11/24/21 13:29 Freq: Status: Active Protocol: RPE Activity Type Activity Date Activity User E-sign Co-sign Detail Recorded Client Recorded Date Recorded By Document 11/24/21 13:17 KRM [email or web address] 11/24/21 13:31 KRM Document 11/24/21 13:18 KRM [email or web address] 11/24/21 13:31 KRM Document 11/24/21 13:20 KRM [email or web address] 11/24/21 13:31 KRM 11/24/21 11/24/21 11/24/21 13:17 13:18 13:20 Home O2 Evaluation Test Phase Resting Exercise Exercise Oxygen Delivery Room Air Room Air Room Air Pulse Oximetry (90-100 %) 99 99 95 Pulse Rate (60-100 beats/min) 81 102 H 111 H Activity Tolerance Excellent Ambulation Distance (feet) 200 Ambulation Distance (meters) 60.95 Home Oxygen Evaluation Comments NO SUPPLEMENTAL O2 NEEDED. Treatment Charges O2 Evaluation - Outpatient
== END 2021-11-24 12:48 | disposition home or self-care (01) ==
PROVIDERS: PCP Internal Medicine; Visit Provider Physician Assistant
DX: J96.01 Acute respiratory failure with hypoxia (principal)
CPT/HCPCS: 94618

== ENCOUNTER 2022-03-07 07:18 | Outpatient (CLI) | payer OTHER, SELFPAY ==
--- NOTE | ~2022-03-07 | CT_ITS ---
EXAMINATION: CT lung screening DATE: 03/07/2022 07:44 INDICATION: Personal history of tobacco dependence. Lung cancer screening. TECHNIQUE: Computed tomography (CT) of the chest was performed without intravenous contrast. The dose -length product was 447.28 mGy-cm. Automated exposure control and iterative reconstruction technique were employed. COMPARISON: CT dated 06/29/2021 FINDINGS: Heart size is normal. No thoracic lymphadenopathy. No significant pleural or pericardial ef fusion. There is a 2 mm left lower lobe nodule, image 72. There is emphysema. There is a 2 mm right u pper lobe nodule. There is a 4 mm right lower lobe nodule, image 98. There is a 4 mm fissural nodule on the left, image 72. There are a few additional smaller 2-3 mm nodules in both lungs. No pneumothor ax. No focal airspace consolidation. No endobronchial lesions. IMPRESSION: 1. Lung-RADS category 2: Benign appearance or behavior. Continue annual screening with noncontrast lo w-dose chest CT in 12 months. Reviewed, dictated and finalized at location A. IMPRESSION: 1. Lung-RADS category 2: Benign appearance or behavior. Continue annual screeni ng with noncontrast low-dose chest CT in 12 months.
== END 2022-03-07 07:19 | disposition home or self-care (01) ==
PROVIDERS: PCP Internal Medicine; Visit Provider Physician Assistant
DX: Z12.2 Encounter for screening for malignant neoplasm of respiratory organs (principal); Z87.891 Personal history of nicotine dependence
CPT/HCPCS: 71271

== ENCOUNTER 2022-04-30 08:51 | Outpatient (CLI) | payer OTHER, SELFPAY ==
--- NOTE | ~2022-04-30 | MM_ITS ---
EXAMINATION: MM screening stacey BI w chidi HISTORY: Screening TECHNIQUE: Craniocaudal and mediolateral oblique 3-D tomosynthesis images were obtained and synthetic 2-D images were generated. CAD analysis was submitted and interpreted. COMPARISON: Comparison to multiple prior studies sequentially, with oldest reviewed study dated 08/28. BREAST PARENCHYMAL COMPOSITION: There are scattered areas of fibroglandular density. FINDINGS: There is no evidence of suspicious mass, calcification, or architectural distortion to sugg est malignancy in either breast. There has been no suspicious interval change. IMPRESSION: 1. No mammographic evidence of malignancy. 2. Recommend routine screening mammography in one year. BI-RADS Category 1: Negative Reviewed, dictated and finalized at location A. 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
== END 2022-04-30 08:52 | disposition home or self-care (01) ==
LOC: ANHIMG 08:53
PROVIDERS: PCP Internal Medicine; Visit Provider Obstetrics & Gynecology
DX: Z12.31 Encounter for screening mammogram for malignant neoplasm of breast (principal)
CPT/HCPCS: 77063; 77067

== ENCOUNTER 2022-05-28 07:45 | Outpatient (CLI) | payer OTHER, SELFPAY ==
--- NOTE | 2022-05-28 | ECG_ITS ---
Measurements Intervals [place] Rate: 68 P: 59 ND: 164 QRS: 79 QRSD: 86 T: 32 QT: 376 QTc: 401 Interpretive Statements SINUS RHYTHM NONSPECIFIC T-WAVE ABNORMALITY BORDERLINE ECG COMPARED TO ECG 06/29/2021 17:04:32 NO SIGNIFICANT DIFFERENCE Electronically Signed On 05-28-2022 15:04:45 STACKER OPERATOR by Joss Jeronimo M.D.
== END 2022-05-28 07:46 | disposition home or self-care (01) ==
LOC: ANHCARD 07:49
PROVIDERS: PCP Internal Medicine; Visit Provider Nurse Practitioner
DX: E66.9 Obesity, unspecified (principal); R94.31 Abnormal electrocardiogram [ECG] [EKG]
CPT/HCPCS: 93005

== ENCOUNTER 2023-01-07 10:23 | Emergency (ER) | payer OTHER, SELFPAY ==
--- NOTE | ~2023-01-07 | XR_ITS ---
EXAMINATION: XR chest 2V 01/07/2023 11:22 INDICATION: Shortness of breath. Dry cough. PROCEDURE: 2 view chest COMPARISON: Comparison to multiple prior studies sequentially, with oldest reviewed study dated 06/29. FINDINGS: The lungs are clear. The cardiomediastinal silhouette is within normal limits. There are no pleural effusions. There is no pneumothorax suspected. IMPRESSION: 1: NO ACUTE CARDIOPULMONARY DISEASE. Reviewed, dictated and finalized at location A.
--- NOTE | ~2023-01-07 | CT_ITS ---
EXAMINATION: CTA chest PE protocol DATE: 01/07/2023 12:38 CDT INDICATION: Shortness of breath. Elevated d-dimer. TECHNIQUE: Computed tomographic angiography (CTA) of the chest was performed with 100 mL Omnipaque-35 0 intravenous contrast. The dose-length product was 1019.03 mGy-cm. Maximum intensity projection 3D-r econstructions of the aorta and other arteries were constructed by the technologist on a separate wor kstation. Automated exposure control and iterative reconstruction technique were employed. COMPARISON: CT dated 03/07/2022. FINDINGS: Study is technically adequate without evidence for pulmonary embolism. No significant pleur al or pericardial effusion. No thoracic lymphadenopathy. Heart size normal. There are calcified granu vonnie of the spleen. There is emphysema. Stable small bilateral pulmonary nodules measuring 3 mm or l ess, likely benign. No pneumothorax. No focal airspace consolidation. No endobronchial lesions. There is a ventral abdominal wall hernia containing fat. IMPRESSION: 1. No acute cardiopulmonary disease. No evidence for pulmonary embolism. Reviewed, dictated and finalized at location A.
[2023-01-07 10:36] VITALS: BP 133/84; PULSE 75; RESP 27; TEMP 37.1; O2SAT 100
[2023-01-07 10:40] VITALS: PULSE 76; O2SAT 100
[2023-01-07 10:41] VITALS: BP 133/84; PULSE 73; RESP 27; O2SAT 100
--- NOTE | 2023-01-07 10:44 | ECG_ITS ---
Measurements Intervals [place] Rate: 71 P: -2 NC: 126 QRS: 68 QRSD: 82 T: 9 QT: 370 QTc: 402 Interpretive Statements SINUS RHYTHM LOW QRS VOLTAGE IN PRECORDIAL LEADS BASELINE WANDER- V4 BORDERLINE ECG COMPARED TO ECG 05/28/2022 08:08:50 NO SIGNIFICANT CHANGES Electronically Signed On 01-07-2023 11:51:05 CDT by [place] D.O.
[2023-01-07 10:54] LABS: Basophils Percent Auto 0.6 % (0.2-1.2); Eosinophils Absolute Auto 0.1 K/mm3 (0-0.3); Eosinophils Percent Auto 1.8 % (0-4.4); Hematocrit 38.2 % (37.0-47.0); Immature Granulocyte Absolute 0.02 K/mm3 (0.00-0.031); Immature Granulocyte Percent A 0.3 % (0-0.5); Lymphocytes Absolute Auto 1.31 K/mm3 (0.9-3.2); Mean Corpuscular Hemoglobin 29.7 pg (26-34); Mean Corpuscular Volume 87.2 fl (80-100); Mean Platelet Volume 8.9 fl (7.4-10.4); Monocytes Absolute Auto 0.4 K/mm3 (0.1-0.6); Monocytes Percent Auto 6.4 % (2.6-8.5); Neutrophils Absolute Auto 4.4 K/mm3 (1.3-6.7); Neutrophils Percent Auto 69.9 % (45.5-73.1); Platelet Count Result 359 k/mm3 (150-375); Red Blood Count 4.38 M/mm3 (4.2-5.4); Red Cell Distribution Width 12.9 % (11.5-14.5); White Blood Count 6.2 K/mm3 (4.5-10.0)
--- NOTE | 2023-01-07 10:58 | ED.SOB ---
HPI - SOB/Dyspnea General Chief Complaint: Shortness of Breath/Dyspnea Stated Complaint: sob Time Seen by Provider: 01/07/23 10:37 History of Present Illness HPI Narrative: 52-year-old female presents to the emergency room today for complaints of shortness of breath that started on . She is having some mild right-sided chest pain that started on Saturday. She has a history of COPD but she says that she is not having any wheezing. She has been using her albuterol inhaler but this has not helped. She has a dry cough. Denies any swelling to her hands or feet. She denies having any cardiac history. She says she just had a cardiac work-up a few months ago that was normal. No nausea, vomiting, diarrhea or abdominal pain. Denies having any dizziness or lightheadedness. No neck pain or back pain. No fever or chills. Related Data Home Medications Medication Instructions Recorded Confirmed lisinopril 10 1 tablet PO DAILY 07/15/19 03/13/22 mg-hydrochlorothiazide 12.5 mg tablet venlafaxine 150 mg 150 mg PO DAILY 07/15/19 03/13/22 capsule,extended release 24 hr montelukast 10 mg tablet 10 mg PO DAILY 07/16/19 03/13/22 (Singulair) Allergies Allergy/AdvReac Type Severity Reaction Status Date / Time No Known Allergies Allergy Verified 01/07/23 10:42 Review of Systems Review of Systems: CONSTITUTIONAL: Denies fever, chills, or sweats. EYES: Denies visual changes, redness, or discharge. ENT: Denies rhinorrhea, congestion, sore throat, or otalgia. CARDIOVASCULAR: as per HPI RESPIRATORY: as per HPI GASTROINTESTINAL: Denies abdominal pain, nausea, vomiting, or diarrhea. GENITOURINARY: Denies dysuria or hematuria. SKIN: Denies rash or itching. MUSCULOSKELETAL: Denies back pain, joint pain, or myalgia. NEUROLOGIC: Denies headache, numbness, dizziness, or weakness. PSYCHIATRIC: Denies anxiety or depression. [facility] Past Medical History Medical History Anxiety Chronic obstructive pulmonary disease PFTs 06/27/2020: Mild obstructive abnormality without significant improvement with bronchodilators. Study without significant change compared to 2018. Diastolic dysfunction Echocardiogram 2019 demonstrated diastolic dysfunction with elevated left heart pressures EF 55-60% Eczema Former smoker Hypertension Nodule of right lung With stable CT scan January 2021. Exam consistent with granulomatous disease Normal nuclear stress test (08/2020) KAREN (obstructive sleep apnea) CPAP of 11 Rosacea Surgical History Surgical History History of laparoscopic cholecystectomy (2014) History of sinus surgery History of tonsillectomy and adenoidectomy History of tubal ligation Family History Family History Sibling Depression Patient's sister is in good health Patient's brother is in good health Mother , Age 52 Acute myocardial infarction Father , Age 30s Trauma Other Family history of gastrointestinal disorder Hypertension Social History Social History Social History: She reports that she and her have been together for over 30 years but have only been for about 13 years. They have 2 daughters who are healthy. She used to smoke 1.5 packs of cigarettes per day. She reports that she drinks 6 beers twice a week. She denies any illicit substance use. 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 Primary care physician: Dr. Tejada Code status: Full code Surrogate decision maker: Smoking packs per day: 1.5 Smoking cigarettes per day: 30.0 Years smoked: 25 Smoking pack-years: 37.50 Smoking status: Former smoker Tobacco type: cigarettes Smoking end date: 06/17/11 Alcohol intake: never Drinks per week: 10
[2023-01-07 11:05] LABS: Alanine Aminotransferase 43 U/L (6-35); Albumin Level 4.2 g/dL (3.5-5.1); Alkaline Phosphatase 69 U/L (38-126); Anion Gap 12 mmol/L (8-16); Aspartate Amino Transferase 30 U/L (14-36); Bilirubin,Total 0.3 mg/dL (0.2-1.3); Blood Urea Nitrogen 15 mg/dL (7-17); Calcium 9.2 mg/dL (8.4-10.2); Carbon Dioxide 17 mmol/L (22-30); Chloride 108 mmol/L (98-107); Estimated CRCL calculation 80 ml/min; Estimated Glomerular Filt Rate > 60; Glucose 99 mg/dL (65-110); Potassium 3.7 mmol/L (3.4-5.0); Sodium 137 mmol/L (137-145)
[2023-01-07 11:17] LABS: INR 0.9; Prothrombin Time 13.1 Seconds (11.1-14.7)
[2023-01-07 11:18] LABS: Magnesium 2.3 mg/dL (1.6-2.3); Partial Thromboplastin Time 28.8 SECONDS (22.3-36.8)
[2023-01-07 11:31] LABS: NT Pro B Type Natriuretic Pept 59 pg/mL (19.9-100); Troponin I < 0.012 ng/mL (0.000-0.034)
[2023-01-07] MEDS: ASPIRIN 81 MG CHEWABLE TABLET 324 MG PO (11:33)
[2023-01-07 11:34] VITALS: BP 108/67; PULSE 85; RESP 16; O2SAT 98
[2023-01-07 11:49] LABS: D Dimer 0.59 ug/mL (<0.48)
[2023-01-07 13:13] VITALS: BP 108/75; PULSE 74; RESP 18; O2SAT 100
[2023-01-07 14:23] VITALS: RESP 20; O2SAT 100
== END 2023-01-07 14:24 | disposition home or self-care (01) ==
PROVIDERS: Emergency Medicine; Emergency Provider Nurse Practitioner Family; PCP Internal Medicine
DX: J44.1 Chronic obstructive pulmonary disease with (acute) exacerbation (principal); I10 Essential (primary) hypertension; G47.33 Obstructive sleep apnea (adult) (pediatric); Z87.891 Personal history of nicotine dependence; Z90.49 Acquired absence of other specified parts of digestive tract; R94.31 Abnormal electrocardiogram [ECG] [EKG]
CPT/HCPCS: 36415; 71046; 71275; 80053; 83735; 83880; 84484; 85025; 85380; 85610; 85730; 93005; 99284; A9270; Q9967

== ENCOUNTER 2023-02-23 09:12 | Outpatient (CLI) | payer OTHER, SELFPAY ==
[2023-02-23 09:37] LABS: Basophils Percent Auto 0.8 % (0.2-1.2); Eosinophils Absolute Auto 0.2 K/mm3 (0-0.3); Eosinophils Percent Auto 2.8 % (0-4.4); Hematocrit 38.2 % (37.0-47.0); Hemoglobin 12.8 g/dL (12.0-15.0); Immature Granulocyte Absolute 0.03 K/mm3 (0.00-0.031); Immature Granulocyte Percent A 0.6 % (0-0.5); Lymphocytes Absolute Auto 0.96 K/mm3 (0.9-3.2); Lymphocytes Percent Auto 18.1 % (18.3-44.2); Mean Corpuscular HGB Conc 33.5 g/dl (32-36); Mean Corpuscular Hemoglobin 30.1 pg (26-34); Mean Corpuscular Volume 89.9 fl (80-100); Mean Platelet Volume 8.8 fl (7.4-10.4); Monocytes Absolute Auto 0.5 K/mm3 (0.1-0.6); Monocytes Percent Auto 8.7 % (2.6-8.5); Neutrophils Absolute Auto 3.7 K/mm3 (1.3-6.7); Platelet Count Result 256 k/mm3 (150-375); Red Blood Count 4.25 M/mm3 (4.2-5.4); Red Cell Distribution Width 13.4 % (11.5-14.5); White Blood Count 5.3 K/mm3 (4.5-10.0)
[2023-02-23 09:52] LABS: Alanine Aminotransferase 16 U/L (6-35); Alkaline Phosphatase 70 U/L (38-126); Anion Gap 6 mmol/L (8-16); Aspartate Amino Transferase 19 U/L (14-36); Bilirubin,Total 0.4 mg/dL (0.2-1.3); Blood Urea Nitrogen 16 mg/dL (7-17); Calcium 8.8 mg/dL (8.4-10.2); Carbon Dioxide 27 mmol/L (22-30); Chloride 106 mmol/L (98-107); Estimated Glomerular Filt Rate > 60; Glucose 104 mg/dL (65-110); Sodium 139 mmol/L (137-145)
[2023-02-23 10:41] LABS: Vitamin D 25 Hydroxy 47.9 ng/mL
== END 2023-02-23 09:13 | disposition home or self-care (01) ==
PROVIDERS: PCP Internal Medicine; Visit Provider Obstetrics & Gynecology
DX: Z00.00 Encounter for general adult medical examination without abnormal findings (principal); N93.9 Abnormal uterine and vaginal bleeding, unspecified; I10 Essential (primary) hypertension; Z79.899 Other long term (current) drug therapy
CPT/HCPCS: 36415; 80053; 82306; 85025; 86850; 86900; 86901

== ENCOUNTER 2023-02-27 01:02 | Day surgery (SDC) | payer OTHER, SELFPAY ==
--- NOTE | 2023-02-21 18:03 | PC.NURSE ---
Report to the Outpatient Waiting Room, entrance under the green pavilion located off [facility], at time 0600 on date 02/27/23. Planned Procedure Time: 0730. Time changes happen often and if your time is changed the preop area will call you the afternoon before. - You and your visitor will be asked to self-screen and do not enter if you have any COVID symptoms. - A mask is optional within the hospital at this time. Patients may have clear liquids (water, carbonated beverages, clear teas, apple juice) until 3 hours prior to surgery with a maximum of 20 ounces. 0430 - No food from midnight until time of surgery - Infants may have breast milk until 4 hours before surgery, formula 6 hours prior to surgery. - Children will be allowed to drink immediately following surgery. If applicable, please bring a bottle or sippy cup to assist with drinking. Juice, water, soda, and popsicles are readily available. For infants on formula, please bring formula the day of surgery. Pacifiers are allowed. Take the following medications with a SIP of water the morning of surgery: venlafaxine, topiramate, inhalers DO NOT STOP ANY OF YOUR OTHER PRESCRIPTION MEDICATIONS PRIOR TO SURGERY ?EXCEPT THE FOLLOWING Medications to discontinue per physician estradiol, flonase, lisinopril, montelukast, phentermine, progesterone Date to take last dose 02/26/23 for above medications, 02/24/23 for multivitamins and supplements Please no make-up, nail finnish, hairspray, perfume, deodorant, or body powder the day of surgery. No jewelry (including any body piercings) or valuables the day of surgery, leave them at home. Please take a shower or bath the night before, or the morning of, surgery with an antibacterial soap. Wear comfortable, loose fitting clothing. Children are encouraged to wear pajamas. - Jewelry must be removed prior to entering the operating room. Rings and piercings that are not removed may be cut off. - The hospital will not accept responsibility for valuables. - Please leave all valuables, including medications, at home the day of surgery. If you are going home after surgery, a licensed motorcoach driver must drive you home. - NO public transportation without another adult if you receive anesthesia. - We recommend that an adult stay with you for 24 hours following discharge. - We also recommend that you do not drive, make important decision, drink alcoholic beverages, or take any drugs that were not prescribed by your health care provider for at least 24 hours after your discharge time. For Pediatric surgeries, we recommend two adults accompany the child home. Follow any additional instructions given to you from your surgeon. If you or anyone in your household have experienced Covid symptoms in the past week, please notify your surgeon or the nurse liaison at the phone number below for possible testing. Telephone instructions given to Patient- Eli Rey and asked if any additional questions and then verbalized understanding. Patient advised to call surgeon office or pre surgery nurse liaison [phone] if any additional questions.
[2023-02-21 18:13] VITALS: BMI 40.4
--- NOTE | 2023-02-26 20:49 | WPDANESEPPF ---
Anes - Initial Pre Proc Eval Procedure: Operation Date: 02/27/23 07:30 Proposed Procedures p Robotic Assisted Hysterectomy with Bilateral Salpingo-oophorectomy - Esteban Gibbons MD Date/Time: 02/26/23 20:49 Surgeon: Esteban Gibbons MD Pre Op Diagnosis: Abnormal Uterine Bleeding Patient Data Age: 52 Gender: F Height: 1.57 m Weight: 100.4 kg Allergies Allergy/AdvReac Type Severity Reaction Status Date / Time No Known Allergies Allergy Verified 02/21/23 17:48 Home Medications Medication Instructions Recorded Confirmed Type lisinopril 10 1 tablet PO DAILY 07/15/19 02/21/23 History mg-hydrochlorothiazide 12.5 mg tablet venlafaxine 150 mg 150 mg PO DAILY 07/15/19 02/21/23 History capsule,extended release 24 hr montelukast 10 mg tablet 10 mg PO DAILY 07/16/19 02/21/23 History (Singulair) albuterol sulfate 2.5 mg/3 mL 2.5 mg (3 mL) inhalation QID PRN 06/26/21 02/21/23 Rx (0.083 %) solution for nebulization shortness of breath or wheezing #360 mL Breztri Aerosphere 160 mg inhalation BID 02/21/23 02/21/23 History Flonase 2 squirt EACH NARE DAILY 02/21/23 02/21/23 History estradiol 1 mg tablet 1 mg PO DAILY 02/21/23 02/21/23 History phentermine 30 mg capsule 30 mg PO DAILY 02/21/23 02/21/23 History progesterone micronized 200 mg 200 mg PO DAILY 02/21/23 02/21/23 History capsule topiramate 50 mg tablet 50 mg PO BID 02/21/23 02/21/23 History Patient hx anesthesia problems: none Family hx anesthesia problems: none Results Review: All pre-operative results and documents have been reviewed as part of the pre-operative evaluation. [facility] Past Medical History Medical History Anxiety Chronic obstructive pulmonary disease PFTs 06/27/2020: Mild obstructive abnormality without significant improvement with bronchodilators. Study without significant change compared to 2018. Diastolic dysfunction Echocardiogram 2019 demonstrated diastolic dysfunction with elevated left heart pressures EF 55-60% Eczema Former smoker Hypertension Nodule of right lung With stable CT scan January 2021. Exam consistent with granulomatous disease Normal nuclear stress test (08/2020) KAREN (obstructive sleep apnea) CPAP of 11 Rosacea Surgical History Surgical History History of laparoscopic cholecystectomy (2014) History of sinus surgery History of tonsillectomy and adenoidectomy History of tubal ligation Family History Family History Sibling Depression Patient's sister is in good health Patient's brother is in good health Mother , Age 52 Acute myocardial infarction Father , Age 30s Trauma Other Family history of gastrointestinal disorder Hypertension Social History Social History Social History: She reports that she and her have been together for over 30 years but have only been for about 13 years. They have 2 daughters who are healthy. She used to smoke 1.5 packs of cigarettes per day. She reports that she drinks 6 beers twice a week. She denies any illicit substance use. 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 Tejada Code status: Full code Surrogate decision maker: Smoking packs per day: 1 Smoking cigarettes per day: 20.0 Years smoked: 35 Smoking pack-years: 35.00 Smoking status: Former smoker Tobacco type: cigarettes Smoking end date: 06/17/11 Alcohol intake: current Drinks per week: 3 Substance use: never Living arrangements: with family Spiritual care concerns: No Anes - Eval Final PreProcedure Day of Procedure 02/26/23 20:49 Patient weight: morbidly obese Heart: regular rate and rhythm Lungs: clear to auscultation Airway
[2023-02-27] VITALS (12 sets, daily range): BP systolic 97–120; BP diastolic 59–88; PULSE 76–93; RESP 12–20; TEMP 36.5–37.2; O2SAT 95–100; BMI 40.9
[2023-02-27] MEDS: LACTATED RINGERS 1,000 ML 30 ML IV CONT ×2 (06:30→10:14)
[2023-02-27] MEDS: ACETAMINOPHEN 500 MG TABLET 1000 MG PO (06:37)
[2023-02-27] MEDS: KETOROLAC 15 MG/ML VIAL (*BKC) IV PUSH (06:37)
--- NOTE | 2023-02-27 07:33 | WPDHPUPDATE1 ---
History and Physical Update Update Date/Time: 02/27/23 07:33 History and Physical has been reviewed, including an updated exam of the patient. There are NO changes in the patient's condition. Risks, benefits, and alternatives have been discussed and questions answered. Patient agrees to proceed with procedure.
[2023-02-27] MEDS: ceFAZolin 2 GM/D5W 50 ML 2 GM/50 ML BAG IVPB (07:38)
--- NOTE | 2023-02-27 10:07 | W.PM.PROC2 ---
Procedure Note - Detailed Date of Procedure 02/27/23 Pre-op Diagnosis Abnormal Uterine Bleeding Post-op Diagnosis Same Procedure Performed Robot assisted Total hysterectomy with bilateral salpingectomy. Surgeon Esteban Gibbons MD Anesthesia General Indications heavy vaginal bleeding, pelvic pain Findings normal-appearing uterus, ovaries, and left tube, right tube was partially resected. Some scarring over the posterior cul-de-sac peritoneum. Description of Procedure This patient was taken to the operating room. She was prepped and draped in the dorsal lithotomy position after induction of general anesthesia. The uterine manipulator and Padmini cup were placed. This was done with a speculum and tenaculum. The speculum was placed. The cervix was grasped with a tenaculum. The stay sutures were placed at 3 and 9:00 a.m.. The stay sutures of 0 Vicryl were tied to the appropriately Size scope after it was slipped around the cervix.. The tip of the MARIAH manipulator was placed in the intrauterine cavity. The cup was slid into place around the cervix and into the fornices. It was locked into place. The sutures were then wrapped around the handle and tied under tension. A 8 mm skin incision was made in the left upper quadrant the abdomen. a 5 mm Visiport trocar was inserted into abdominal cavity and pneumoperitoneum was achieved. A 8 mm supraumbilical incision was made and a 8 mm trocar was inserted into the intrauterine cavity under direct visualization of the scope. an 8 mm incision was made in the right upper quadrant of the abdomen and an 8 mm robotic trocar was placed the inter uterine cavity under direct visualization the scope. An 11 mm trocar was inserted in the right upper quadrant of the abdomen rectal is a cystoscope after an incision was made there as well. The robot was docked. Electronic Orientation of the robot was performed. Bilateral ureteral lysis was performed. This was done from the pelvic brim down to the uterine artery. This was done with careful dissection using sharp and blunt dissection.Bilateral salpingo-oophorectomy was performed. The bilateral infundibulopelvic ligaments were cauterized thoroughly and transected after visualization of the ureter passing over the pelvic brim. In stepwise fashion around the ovary the mesosalpinx was cauterized transected. The Fallopian tube tissue/ mesosalpinx was cauterized transected a stepwise fashion medially to the cornua of the uterus. the tube was transected at the cornua and cauterized thoroughly. The bilateral tubes and ovaries were taken out through the large air lock port. Then In a stepwise fashion along the lateral aspects of the uterus the round ligament and broad ligaments were cauterized transected down to the level of the uterine arteries. A bladder flap was created in the bladder was moved distally to the end of the cervix and over the Padmini cup. The bilateral uterine arteries were cauterized and transected. Colpotomy was then performed. In a circumferential fashion the vagina was transected using unipolar cautery. The incision was made down on the Padmini cup. The uterus and cervix were taken out through the vagina. A pneumo occluder was placed in the vagina. The vaginal cuff was closed with a 0 V lock suture in a running fashion. The pelvis was irrigated with copious amounts antibiotic irrigation. The ureters were again examined and found to be intact and flowing freely under the uterine arteries into the bladder. The bladder was intact. It was examined directly. The vagina was irrigated with Betadine solution after removal of the Pneumo occluder. the trocars were removed after the robot was undocked. The skin was closed with subacute or Dermabond. The patient was taken to recovery room. She was stable condition. Sponge lap and needle counts were correct x2. Estimated Blood Loss 125 Urine Output 800 Drains Yes Packing No Pathology Yes Complications No immed
[2023-02-27] MEDS: fentaNYL CITRATE INJ (*CRX) 100 MCG/2 ML VIAL 25 MCG IV PUSH ×6 (10:24→11:02)
--- NOTE | 2023-02-27 12:08 | PC.NURSE ---
On 02/27/23, the student, Shantel Aguilera, provided care and completed [facility] documentation on this patient. I have reviewed the student's documentation and agree with the findings.
[2023-02-27] MEDS: KETOROLAC 30 MG/ML VIAL (*BKC) IV PUSH ×2 (12:22→20:12)
[2023-02-27] MEDS: DEXTROSE 5%/0.45% SOD CHL 1,000 ML 125 ML IV CONT (12:22)
--- NOTE | 2023-02-27 12:48 | PC.NURSE ---
This patient, Eli Rey, was received from PACU on 02/27/23 at 1200. Patient/family oriented to unit policies and routines
[2023-02-27] MEDS: HYDROcodone/acetaminophen (*CRX) 5-325 MG TABLET 1 TAB PO ×2 (15:29→20:17)
[2023-02-28] MEDS: HYDROcodone/acetaminophen (*CRX) 5-325 MG TABLET 1 TAB PO ×2 (03:35→08:10)
[2023-02-28] MEDS: IBUPROFEN 600 MG TABLET PO (03:37)
[2023-02-28 04:00] VITALS: BP 122/76; PULSE 96; RESP 16; TEMP 36.9; O2SAT 97
[2023-02-28] MEDS: VENLAFAXINE HCL XR 75 MG CAP.ER.24H 150 MG PO (08:10)
[2023-02-28] MEDS: hydroCHLOROthiazide 12.5 MG CAPSULE PO (08:10)
--- NOTE | 2023-02-28 08:10 | PM.GYNPNOP ---
PLASMA TABLE OPERATOR - A/P Postoperative Procedures: Procedures Operation Date: 02/27/23 07:30 Actual Procedure Side Surgeon p Robotic Assisted Hysterectomy with Bilateral Salpingo-oophorectomy Esteban Gibbons MD Postoperative day: 1 Postoperative status: doing well Postoperative plan: see orders Time Spent With Patient Time: Total time spent is greater than 50% in coordination of care (as documented) at patient's floor/unit and/or counseling patient: Time with patient: less than 15 minutes PLASMA TABLE OPERATOR- PN:Subj Post-Op Subjective Date/time seen: 02/28/23 08:10 Subjective: patient reports feeling better, patient has no complaints and pain is well controlled Exam Const: General: healthy appearing, comfortable and no acute distress Resp: Auscultation: clear to auscultation bilaterally, no rales, no rhonchi and no wheezes Cardio: Rate: regular rate Heart sounds: no click, no murmurs and no rubs GI: Inspection: non-distended Auscultation: normal bowel sounds Extrem: General: normal to inspection, no pedal edema and no calf tenderness PLASMA TABLE OPERATOR - PN: Obj Data Vital Signs Vital Signs: Vital Signs - 24 hr 02/27/23 10:20 02/27/23 10:35 02/27/23 10:50 Temperature 98.1 F Pulse Rate 92 89 84 Respiratory Rate 20 16 12 Blood Pressure 120/69 118/74 104/69 Pulse Oximetry 100 100 100 Oxygen Delivery Simple Face Mask Simple Face Mask Simple Face Mask Oxygen Flow Rate 8 8 8 02/27/23 11:05 02/27/23 11:20 02/27/23 11:35 Temperature Pulse Rate 83 85 80 Respiratory Rate 13 16 16 Blood Pressure 97/69 L 101/63 106/76 Pulse Oximetry 96 100 95 Oxygen Delivery Room Air Room Air Room Air Oxygen Flow Rate 02/27/23 11:50 02/27/23 12:02 02/27/23 15:30 Temperature 97.7 F 98.1 F Pulse Rate 80 82 81 Respiratory Rate 15 16 16 Blood Pressure 104/66 101/74 101/59 L Pulse Oximetry 96 96 97 Oxygen Delivery Room Air Oxygen Flow Rate 02/27/23 20:05 02/27/23 20:05 02/27/23 23:03 Temperature 98.0 F 98.9 F Pulse Rate 81 81 93 Respiratory Rate 16 16 18 Blood Pressure 106/67 117/73 Pulse Oximetry 99 99 100 Oxygen Delivery Room Air Oxygen Flow Rate 02/27/23 23:03 02/28/23 04:00 02/28/23 04:00 Temperature 98.4 F Pulse Rate 96 Respiratory Rate 16 Blood Pressure 122/76 Pulse Oximetry 97 Oxygen Delivery Room Air Room Air Oxygen Flow Rate Intake/Output Intake/Output: Intake & Output 02/25/23 02/26/23 02/27/23 02/28/23 23:59 23:59 23:59 23:59 Intake Total 2350 Output Total 1650 Balance 700 Meds/Results Medications: Active Medications Generic Name Dose Route Start Last Admin Trade Name Freq PRN Reason Stop Dose Admin Hydrocodone Bitart/Acetaminophen 1 tab 02/27/23 11:53 02/28/23 03:35 Hydrocodone/Acetaminophen (*Crx) 5-325 Mg Tablet PO 1 tab Q3H PRN Administration Pain Rated 5 or Less Hydrocodone Bitart/Acetaminophen 1 tab 02/27/23 11:53 Hydrocodone/Acetaminophen (*Crx) 10-325 Mg Tablet PO Q3H PRN Pain Rated 6 or Greater Albuterol 2.5 mg 02/27/23 11:53 Albuterol Sulfate Neb 2.5 Mg/3 Ml Inh INHALATION QIDRT PRN shortness of breath or wheezing Estradiol 1 mg 02/28/23 09:00 Estradiol 1 Mg Tablet PO DAILY SERVANDO Hydrochlorothiazide 12.5 mg 02/28/23 09:00 Hydrochlorothiazide 12.5 Mg Capsule PO QAM [facility] Ibuprofen 600 mg 02/27/23 11:53 02/28/23 03:37 Ibuprofen 600 Mg Tablet PO 600 mg Q6H PRN Administration Cramping Ketorolac Tromethamine 30 mg 02/27/23 11:53 02/27/23 20:12 Ketorolac 30 Mg/Ml Vial (*Bkc) IV PUSH 03/04/23 11:52 30 mg Q6H PRN Administration Pain Rated 4-6 Lisinopril 10 mg 02/28/23 09:00 Lisinopril 10 Mg Tablet PO QAM [facility] Naloxone HCl 0.1 mg 02/27/23 11:53 Naloxone Hcl 0.4 Mg/Ml Vial IV PUSH Q2M PRN Respiratory rate less than 10 Ondansetron HCl 4 mg 02/27/23 11:53 Ondansetron Inj 4 Mg/2 Ml Vial IV PUSH Q6H PRN Nausea And
[2023-02-28] MEDS: lisinopriL 10 MG TABLET PO (08:11)
[2023-02-28 08:45] VITALS: BP 112/72; PULSE 77; RESP 18; TEMP 36.8; O2SAT 100
== END 2023-02-28 10:47 | disposition home or self-care (01) ==
LOC: ANHSURGERY 05:48 → ANHOB2 11:59
PROVIDERS: PCP Internal Medicine; Visit Provider Obstetrics & Gynecology
PROC: (CPT 58571; principal; 2023-02-27 07:30)
DX: N93.9 Abnormal uterine and vaginal bleeding, unspecified (principal); N80.03 Adenomyosis of the uterus; N73.6 Female pelvic peritoneal adhesions (postinfective); R10.2 Pelvic and perineal pain; Z23 Encounter for immunization; J44.9 Chronic obstructive pulmonary disease, unspecified; I11.9 Hypertensive heart disease without heart failure; G47.33 Obstructive sleep apnea (adult) (pediatric); Z79.51 Long term (current) use of inhaled steroids; Z87.891 Personal history of nicotine dependence; E66.01 Morbid (severe) obesity due to excess calories; Z68.41 Body mass index [BMI] 40.0-44.9, adult
CPT/HCPCS: 58571; S2900; 88307; 90471; 90686; 99199; A9270; G0008; J0690; J1100; J1885; J2250; J2405; J2704; J3010; J7030; J7120

== ENCOUNTER 2023-04-25 06:48 | Outpatient (CLI) | payer OTHER, SELFPAY ==
--- NOTE | ~2023-04-25 | CT_ITS ---
EXAMINATION: CT abdomen pelvis w con INDICATION: Postoperative abdominal pain TECHNIQUE: Computed tomographic images of the abdomen and pelvis were obtained after the administrati on of 100 cc of Omnipaque 350 intravenous contrast. The dose-length product (DLP) was 1484.87 mGy-cm. Automated exposure control and iterative reconstruction technique were employed. COMPARISON: 02/28/2018 FINDINGS: Minimal dependent atelectasis is present in the lung bases. The heart size is normal. Fowler es of cholecystectomy are noted. Punctate calcifications in an otherwise normal spleen likely represent healed granulomatous disease. The liver, pancreas, and adrenal glands are normal. The kidneys are unremarkable. No pathologically e nlarged abdominal or pelvic lymph nodes are identified. There is calcified atherosclerosis of the aor ta and many of the other arteries. No free intraperitoneal gas or evidence of bowel obstruction. Ther e is a midline epigastric hernia containing fat with interval increase in size since the comparison e xamination. There is mild lumbar spondylosis. IMPRESSION: 1. Fat-containing, midline epigastric hernia with interval increase in size since the comparison exam ination. Reviewed, dictated and finalized at location L. LE BUILDER IMPRESSION: 1. Fat-containing, midline epigastric hernia with interval increase in size sin ce the comparison examination.
[2023-04-25 07:09] LABS: Estimated Glomerular Filt Rate > 60
== END 2023-04-25 06:49 | disposition home or self-care (01) ==
PROVIDERS: PCP Internal Medicine; Visit Provider Obstetrics & Gynecology
DX: G89.18 Other acute postprocedural pain (principal)
CPT/HCPCS: 74177; Q9967

== ENCOUNTER 2023-10-29 16:18 | Outpatient (CLI) | payer OTHER, SELFPAY ==
--- NOTE | ~2023-10-29 | XR_ITS ---
Lumbosacral Spine: AP and lateral views Clinical History: Pain Findings: The normal lordotic curve is maintained. 7 mm anterolisthesis of L4 over L5 present. There is advanced facet arthropathy at L4-L5 and L5-S1. The sacroiliac joints are normally outlined. Impression: 7 mm anterolisthesis of L4 over L5. Facet arthropathy, as above. Reviewed, dictated and finalized at location . Impression: 7 mm anterolisthesis of L4 over L5. Facet arthropathy, as above.
--- NOTE | ~2023-10-29 | XR_ITS ---
EXAM: XR hip LT min 2V DATE: 10/29/2023 16:40 HISTORY: PAIN OF LT HIP JOINT X 2 MONTHS . COMPARISON: None available. FINDINGS: Normal mineralization. No fracture or dislocation. No lytic or blastic lesion. Joint space s are mild degenerative changes in the SI joints and left hip. No erosion or periosteal change. Soft tissues within normal limits. IMPRESSION: Mild left hip osteoarthritis. Mild sacroiliitis. Reviewed, dictated and finalized at location K.
== END 2023-10-29 16:19 | disposition home or self-care (01) ==
LOC: ANHIMG 16:21
PROVIDERS: PCP Internal Medicine; Visit Provider Internal Medicine
DX: M16.12 Unilateral primary osteoarthritis, left hip (principal); M53.3 Sacrococcygeal disorders, not elsewhere classified
CPT/HCPCS: 72100; 73502

== ENCOUNTER 2023-12-03 12:37 | Outpatient (CLI) | payer OTHER, SELFPAY ==
--- NOTE | ~2023-12-03 | XR_ITS ---
XR chest 2V 12/03/2023 12:58 Indication: Increased shortness of breath. COPD. Procedure: 2 view chest Comparison: Comparison to multiple prior studies sequentially, with oldest reviewed study dated 07/02. Findings: Cardiomegaly. No focal air space disease, pulmonary edema, pleural effusion or suspected pn eumothorax. Impression: 1: No acute cardiopulmonary disease. Reviewed, dictated and finalized at location B. Impression: 1: No acute cardiopulmonary disease.
== END 2023-12-03 12:38 | disposition home or self-care (01) ==
PROVIDERS: PCP Internal Medicine; Visit Provider Physician Assistant
DX: J44.9 Chronic obstructive pulmonary disease, unspecified (principal)
CPT/HCPCS: 71046

== ENCOUNTER 2023-12-09 14:17 | Emergency (ER) | payer OTHER, SELFPAY ==
--- NOTE | ~2023-12-09 | CT_ITS ---
CT diagnostic chest w con Ordering provider: Alona Solano MD History: 52 years Female with . shortness of breath, cough for 3 weeks . Comparison: January 07, 2023 Technique: CT chest with IV contrast. Radiation reduction technique utilized. DLP is 824.1 mGy. 75 mL Omnipaque 300 was given. Findings: VISUALIZED THORACIC INLET: Normal. MEDIASTINUM: Aorta/coronary arteries: Mild atheromatous disease. Heart/other: The heart is not enlarged. Lymph nodes: No mediastinal or hilar adenopathy. LUNGS: No pulmonary nodules or masses. No infiltrates or effusions. No pneumothorax. Underlying emphy sematous changes of the lungs. VISUALIZED UPPER ABDOMEN: A fat-containing abdominal wall hernia. Otherwise, the visualized upper abd omen is normal. MUSCULOSKELETAL: Soft tissues: The superficial soft tissues are normal. Bones: Age appropriate degenerative changes of the spine. IMPRESSION: No acute cardiopulmonary pathology. Underlying emphysematous changes. Reviewed, dictated and finalized at location A.
--- NOTE | ~2023-12-09 | XR_ITS ---
XR chest 2V Ordering provider: Elliott Davidson MD History: 52 years Female with . sob . Comparison: December 03, 2023 FINDINGS: MEDIASTINUM: The cardiac silhouette is not enlarged. LUNGS: No effusion or pneumothorax. No definite pneumonia. Prominent markings in the lower lobes. OTHER: No free air under the diaphragm. Degenerative changes of the spine. IMPRESSION: No definite acute cardiopulmonary pathology. Reviewed, dictated and finalized at location A.
--- NOTE | 2023-12-09 14:19 | ECG_ITS ---
Test Date: 2023-12-09 14:23:05 Measurements Intervals [place] Rate: 112 P: 74 [place]: 129 QRS: 88 QRSD: 75 T: 26 QT: 311 QTc: 425 Interpretive Statements SINUS TACHYCARDIA NONSPECIFIC T-WAVE ABNORMALITY ABNORMAL RHYTHM ECG No previous ECG available for comparison Electronically Signed On 12-09-2023 16:03:02 CDT by Joss Jeronimo M.D.
[2023-12-09 14:22] VITALS: BP 136/97; PULSE 103; RESP 26; TEMP 36.6; O2SAT 100
[2023-12-09 17:28] VITALS: BP 142/87; PULSE 86; PULSE 89; RESP 22; O2SAT 100; O2SAT 19
--- NOTE | 2023-12-09 17:32 | ECG_ITS ---
Test Date: 2023-12-09 19:36:25 Measurements Intervals [place] Rate: 81 P: 45 [place]: 147 QRS: 69 QRSD: 82 T: 30 QT: 341 QTc: 396 Interpretive Statements SINUS RHYTHM NONSPECIFIC T-WAVE ABNORMALITY Compared to ECG 12/09/2023 14:23:05 Sinus tachycardia no longer present Electronically Signed On 12-10-2023 13:29:24 CDT by Grant Delgado M.D.
[2023-12-09 17:46] LABS: Basophils Percent Auto 0.3 % (0.2-1.2); Eosinophils Percent Auto 0.1 % (0-4.4); Hematocrit 40.8 % (37.0-47.0); Hemoglobin 14.3 g/dL (12.0-15.0); Immature Granulocyte Absolute 0.25 K/mm3 (0.00-0.031); Immature Granulocyte Percent A 1.7 % (0-0.5); Lymphocytes Percent Auto 11.4 % (18.3-44.2); Mean Corpuscular Hemoglobin 31.4 pg (26-34); Mean Corpuscular Volume 89.7 fl (80-100); Mean Platelet Volume 8.9 fl (7.4-10.4); Monocytes Absolute Auto 1.1 K/mm3 (0.1-0.6); Neutrophils Absolute Auto 11.9 K/mm3 (1.3-6.7); Neutrophils Percent Auto 79.5 % (45.5-73.1); Platelet Count Result 422 k/mm3 (150-375); Red Blood Count 4.55 M/mm3 (4.2-5.4); Red Cell Distribution Width 13.3 % (11.5-14.5); White Blood Count 14.9 K/mm3 (4.5-10.0)
[2023-12-09 18:03] LABS: Alanine Aminotransferase 24 U/L (6-35); Albumin Level 4.6 g/dL (3.5-5.1); Alkaline Phosphatase 91 U/L (38-126); Anion Gap 11 mmol/L (4-12); Aspartate Amino Transferase 24 U/L (14-36); Bilirubin,Total 0.5 mg/dL (0.2-1.3); Blood Urea Nitrogen 30 mg/dL (7-17); Calcium 9.9 mg/dL (8.4-10.2); Carbon Dioxide 26 mmol/L (22-30); Chloride 103 mmol/L (98-107); Estimated CRCL calculation 57 ml/min; Estimated Glomerular Filt Rate 47; Glucose 108 mg/dL (65-110); Potassium 3.9 mmol/L (3.4-5.0); Sodium 140 mmol/L (137-145)
[2023-12-09 18:36] VITALS: BP 161/88; PULSE 91; RESP 19; O2SAT 97
[2023-12-09 18:46] VITALS: BP 159/130; PULSE 94; RESP 18; O2SAT 98
[2023-12-09 19:06] VITALS: BP 138/122; PULSE 99; RESP 20; O2SAT 97
--- NOTE | 2023-12-09 19:12 | PC.NURSE ---
Report given to Yesenia VARGHESE, all questions answered
[2023-12-09 19:35] LABS: Alveolar/Arterial O2 Gradient 27.6 mmHg; Base Excess ABG -2.2 mEq/l (+/-2.0); Carboxyhemoglobin 0.2 % THb (0-2.0); Fractional Inspired Oxygen 21 %; HCO3 ABG 19.9 mEq/l (22.0-26.0); Methemoglobin ABG 0.1 %THb (0-1.5); Oxygen Content ABG 19.3 %vol (16.0-22.0); Oxygen Saturation ABG 97.4 % (95.0-100.0); Oxyhemoglobin 96.5 % THb (90.0-100.0); PCO2 ABG 27.5 mmHg (35.0-45.0); PO2 ABG 89.2 mmHg (80.0-100.0); PO2 FiO2 Ratio Arterial Blood 4.25 %; Reduced Hemoglobin 3.2 %THb (0-5.0); Total Hemoglobin 14.2 g/dL (12.0-18.0); pH ABG 7.477 (7.350-7.450)
[2023-12-09 19:37] LABS: Device ROOM AIR; Modified Allen's Test Pass; Site Drawn RIGHT RADIAL
[2023-12-09 19:42] LABS: Magnesium 2.3 mg/dL (1.6-2.3)
[2023-12-09 19:53] LABS: NT Pro B Type Natriuretic Pept 104 pg/mL (19.9-100); Troponin I < 0.012 ng/mL (0.000-0.034)
[2023-12-09 20:15] VITALS: PULSE 88; RESP 25; O2SAT 98
[2023-12-09 20:16] LABS: D Dimer 0.33 ug/mL (<0.48)
--- NOTE | 2023-12-09 21:27 | ED.SOB ---
HPI - SOB/Dyspnea General Chief Complaint: Shortness of Breath/Dyspnea Stated Complaint: SOB Time Seen by Provider: 12/09/23 18:45 Source: patient, RN notes reviewed and old records reviewed Mode of arrival: ambulatory Limitations: no limitations History of Present Illness HPI Narrative: This is a 52 year old female with history of COPD , morbid obesity who presents for evaluation of shortness of breath. PAtient states that she has been having shortness of breath with exertion for 3 weeks. She reports chest tightness intermittently that is worse with rest. She reports mild cough. She just finished course of steroids and antibiotics without improvement of her symptoms. She also reports increased heart rate with exertion. She denies leg swelling or calf pain. She denies history of heart disease, DVT, PE or arrhythmia. She has normal stress test a few years ago. MD elicited complaint: shortness of breath Related Data Home Medications Medication Instructions Recorded Confirmed lisinopril 10 1 tablet PO DAILY 07/15/19 12/09/23 mg-hydrochlorothiazide 12.5 mg tablet venlafaxine 150 mg 150 mg PO DAILY 07/15/19 12/09/23 capsule,extended release 24 hr montelukast 10 mg tablet 10 mg PO DAILY 07/16/19 12/09/23 (Singulair) Flonase 2 squirt EACH NARE DAILY 02/21/23 12/09/23 Allergies Allergy/AdvReac Type Severity Reaction Status Date / Time No Known Allergies Allergy Verified 12/09/23 17:24 Review of Systems Constitutional: Constitutional: Denies weakness Cardiovascular: Cardiovascular: Denies syncope, Reports rapid heart rate, Denies irregular heart rhythm, Denies leg edema, Denies radiating jaw, neck or arm pain and Reports dyspnea Respiratory: Respiratory: Denies chest congestion, Reports cough, Denies hemoptysis, Denies excessive phlegm production and Reports dyspnea Gastrointestinal: Gastrointestinal: Denies abdominal pain, Denies hematochezia, Denies diarrhea and Denies vomiting Genitourinary: Genitourinary: Denies hematuria and Denies dysuria Musculoskeletal: Musculoskeletal: Denies joint swelling, Denies loss of height and Denies muscle weakness Neurologic: Denies syncope, Denies focal weakness and Denies weakness PMFSH Past Medical History Medical History Anxiety Chronic obstructive pulmonary disease PFTs 06/27/2020: Mild obstructive abnormality without significant improvement with bronchodilators. Study without significant change compared to 2018. Diastolic dysfunction Echocardiogram 2019 demonstrated diastolic dysfunction with elevated left heart pressures EF 55-60% Eczema Emphysema (subcutaneous) (surgical) resulting from a procedure Former smoker Hyperlipidemia Hypertension Nodule of right lung With stable CT scan January 2021. Exam consistent with granulomatous disease Normal nuclear stress test (08/2020) KAREN (obstructive sleep apnea) CPAP of 11 Rosacea Surgical History Surgical History History of hysterectomy 2022 Dr. Gibbons History of laparoscopic cholecystectomy (2014) History of sinus surgery History of tonsillectomy and adenoidectomy History of tubal ligation Family History Family History Sibling Depression Patient's sister is in good health Patient's brother is in good health Mother , Age 52 Acute myocardial infarction Hypertension Father , Age 30s Trauma Other Family history of gastrointestinal disorder Social History Social History (Updated 12/05/23 @ 07:38 by Purnima Joe [facility]) Social History: She reports that she and her have been together for over 30 years but have only been for about 13 years. They have 2 daughters who are healthy. She used to smoke 1.5 packs of cigarettes per day. She reports that she drinks 6 beers twice a week. She denies any ill
== END 2023-12-09 22:02 | disposition home or self-care (01) ==
PROVIDERS: Emergency Medicine; Emergency Provider General Practice; PCP Internal Medicine
DX: J43.9 Emphysema, unspecified (principal); R06.00 Dyspnea, unspecified; E78.5 Hyperlipidemia, unspecified; Z87.891 Personal history of nicotine dependence
CPT/HCPCS: 36415; 36600; 71046; 71260; 80053; 82375; 82805; 83050; 83735; 83880; 84484; 85025; 85380; 93005; 99284; Q9967

== ENCOUNTER 2024-01-02 12:19 | Outpatient (CLI) | payer OTHER, SELFPAY ==
--- NOTE | 2024-01-02 20:44 | P.PCNPFT_ITS ---
PFT Procedure Performed PFT Procedure Performed Spirometry with Pre/Post Bronchodilator Plethysmography (Lung Vol) Diffusing Cap (DLCO) Flow Vol Loop PFT Interpretation DOS: 01/02/2024 REQUESTING: Alaina Ng PA-C REASON FOR TESTING: COPD PULMONARY FUNCTION TESTS Results are reliable and reproducible. Repeatability of spirometry FEV1 maneuver pre and post bronchodilator is Grade A. Spirometry: The pre-bronchodilator FEV1 is 1.69 L, 66%, decreased. The pre- bronchodilator FVC is 3.02 L, 94%, normal. The FEV1/FVC ratio is 56%, decreased, consistent with airflow obstruction. After bronchodilator, the FEV1 is 1.35 L, 52%, -20%. The post bronchodilator FVC is 3.10 L, 96%, +3%. The F EV1/FVC ratio is 43%, reduced. Lung volumes: The total lung capacity is 5.20 L, 106%, normal. The residual volume is 1.93 L, 106%, normal. The RV/TLC is 37%, normal. FRC is 1.97 L, 72%, normal. Airway resistance is increased. Diffusion: DLCO is 13, 59%, reduced. The DLCO/VA is 3.17, 69%, reduced. Flow volume loop: The flow volume loop is abnormal with flattening on the inspiratory and expiratory limbs. This might reflect a fixed upper airway obstruction with airflow limitation on both inspiration and expiration. She had this on the prior study. IMPRESSION: This shows an obstructive ventilatory impairment without response to bronchodilator, normal lung volumes, mild diffusion impairment which does not correct when adjusted for alveolar volume. The patient states she had a recent COPD exacerbation 3 weeks before testing. Results may reflect incomplete recovery. There is a prior study 08/16/2021, was COVID (+) Jun 29, 2021. The FEV1 was 1.33 L, currently FEV1 is 1.69 L, significantly better. The FVC was 2.75 L, now 3.02 L, better. Airflow obstruction was present, FEV1/FVC was 48% which is decreased consistent with airflow obstruction. There was no significant respo nse to bronchodilator. Total lung capacity was 4.54 L, now 5.20 L. Both are normal. There was no air trapping. DLCO was 11.1, 50% and DLCO/VA was 3.22, 70%, similar. Flow volume loop was the same, showing flattening of both inspiratory and expiratory limbs. Jaz Almazan MD
--- NOTE | 2024-01-02 20:56 | WPDSIXMINUTE ---
Six Minute Walk Procedure Procedure Performed Pulmonary Stress Test (6 min walk) Six Minute Walk Six Minute Walk: DATE OF SERVICE: 01/02/2024 REQUESTING: Alaina Ng PA-C REASON FOR TESTING: Shortness of breath SIX MINUTE WALK This test was conducted per ATS guidelines. She was tested while breathing room air. No walking devices were used. The initial saturation was 97%, and initial heart rate was 103 beats per minute. The patient walked until 5 minutes, stopped due to shortness of breath. Total distance completed was 1400 ft/426.7 m.. The saturation at the end of testing was 94%, and the heart rate was 140 beats per minute. The lowest saturation during testing was 92% at 2 minutes. IMPRESSION: This study shows no need for supplemental oxygen with exertion. Distance walked is adequate for her age, especially considering she cut her test short by a minute. The patient had resting tachycardia at the beginning of the study which is not normal. Clinical correlation is recommended. Jaz Almazan MD
== END 2024-01-02 12:20 | disposition home or self-care (01) ==
LOC: ANHPFT 12:21
PROVIDERS: PCP Internal Medicine; Visit Provider Physician Assistant
DX: J44.9 Chronic obstructive pulmonary disease, unspecified (principal); R94.2 Abnormal results of pulmonary function studies
CPT/HCPCS: 94060; 94618; 94726; 94729

== ENCOUNTER 2024-04-07 06:35 | Outpatient (CLI) | payer OTHER, SELFPAY ==
[2024-04-07 07:55] LABS: Alanine Aminotransferase 26 U/L (6-35); Alkaline Phosphatase 72 U/L (38-126); Anion Gap 9 mmol/L (4-12); Aspartate Amino Transferase 21 U/L (14-36); Bilirubin,Total 0.3 mg/dL (0.2-1.3); Blood Urea Nitrogen 18 mg/dL (7-17); Calcium 9.3 mg/dL (8.4-10.2); Carbon Dioxide 26 mmol/L (22-30); Chloride 103 mmol/L (98-107); Estimated Glomerular Filt Rate > 60; Glucose 101 mg/dL (65-110); Potassium 3.9 mmol/L (3.4-5.0); Sodium 138 mmol/L (137-145)
[2024-04-07 08:15] LABS: Basophils Percent Auto 0.6 % (0.2-1.2); Eosinophils Absolute Auto 0.2 K/mm3 (0-0.3); Eosinophils Percent Auto 3.7 % (0-4.4); Hematocrit 36.7 % (37.0-47.0); Hemoglobin 12.4 g/dL (12.0-15.0); Immature Granulocyte Absolute 0.02 K/mm3 (0.00-0.031); Immature Granulocyte Percent A 0.4 % (0-0.5); Lymphocytes Percent Auto 19.6 % (18.3-44.2); Mean Corpuscular HGB Conc 33.8 g/dl (32-36); Mean Corpuscular Hemoglobin 31.5 pg (26-34); Mean Corpuscular Volume 93.1 fl (80-100); Mean Platelet Volume 9.4 fl (7.4-10.4); Monocytes Absolute Auto 0.4 K/mm3 (0.1-0.6); Monocytes Percent Auto 8.4 % (2.6-8.5); Neutrophils Absolute Auto 3.4 K/mm3 (1.3-6.7); Neutrophils Percent Auto 67.3 % (45.5-73.1); Platelet Count Result 255 k/mm3 (150-375); Red Blood Count 3.94 M/mm3 (4.2-5.4); Red Cell Distribution Width 12.6 % (11.5-14.5); White Blood Count 5.1 K/mm3 (4.5-10.0)
[2024-04-07 09:55] LABS: Vitamin D 25 Hydroxy 35.6 ng/mL
== END 2024-04-07 06:36 | disposition home or self-care (01) ==
PROVIDERS: PCP Internal Medicine; Visit Provider Internal Medicine
DX: Z00.00 Encounter for general adult medical examination without abnormal findings (principal); I10 Essential (primary) hypertension; Z79.899 Other long term (current) drug therapy
CPT/HCPCS: 36415; 80053; 82306; 85025

== ENCOUNTER 2024-04-10 07:19 | Outpatient (CLI) | payer OTHER, SELFPAY ==
[2024-04-10 08:18] LABS: Cholesterol 215 mg/dL (0-200); HDL Direct 47 mg/dL; Triglycerides 158 mg/dL (<150)
[2024-04-10 08:28] LABS: LDL Cholesterol Direct 127 mg/dL
== END 2024-04-10 07:20 | disposition home or self-care (01) ==
LOC: ANHLAB 07:21
PROVIDERS: PCP Internal Medicine; Visit Provider Internal Medicine
DX: Z00.00 Encounter for general adult medical examination without abnormal findings (principal)
CPT/HCPCS: 36415; 80061

== ENCOUNTER 2024-04-15 16:15 | Outpatient (RCR) | payer OTHER, SELFPAY ==
[2024-02-04 15:52] VITALS: PULSE 101
== END 2024-04-15 23:59 | disposition home or self-care (01) ==
LOC: ANHCPREHAB 16:15
PROVIDERS: PCP Internal Medicine; Visit Provider Internal Medicine Critical Care Medicine
DX: J44.9 Chronic obstructive pulmonary disease, unspecified (principal)
CPT/HCPCS: 94625

== ENCOUNTER 2024-07-22 08:03 | Outpatient (CLI) | payer OTHER, SELFPAY ==
--- NOTE | 2024-07-22 08:00 | ECG_ITS ---
Test Date: 2024-07-22 08:27:30 Measurements Intervals [place] Rate: 77 P: 55 [place]: 149 QRS: 71 QRSD: 87 T: 36 QT: 358 QTc: 407 Interpretive Statements SINUS RHYTHM LOW QRS VOLTAGE IN PRECORDIAL LEADS BASELINE ARTIFACT- I, II, III, AVR, AVL, AVF, V1-V6 BORDERLINE ECG Compared to ECG 12/09/2023 19:36:25 NO SIGNIFICANT CHANGE Electronically Signed On 07-22-2024 08:33:23 ELEVATOR REPAIRER HELPER by [place] D.O.
--- OUTSIDE RECORDS SUMMARY | 2024-07-22 08:15 | XMS_ITS | Clinical Summary ---
Author Organization [facility] Address [facility] [place] [address] Care Team Providers Care Freight Loader Name Role Phone Unavailable Primary Care Provider Unavailabl e Social History Tobacco Use Types Packs/Day Years Used Date Smoking Tobacco: Never Assessed Comments Unknown Sex and Gender Information Value Date Recorded Sex Assigned at Not on file Legal Sex Female 7:32 AM CDT Gender Identity Not on file Sexual Orientation Not on file Plan of Treatment Health Maintenance Due Date Last Done Comments Cervical Cancer Screening Pa p Smear (Age 30 to 64) Every 3 Years 1969 Colorectal Cancer Screening Colonoscopy (10 Years) 1969 Annual Physical 1972 Hepatitis C 12/21/1987 DTaP, Tdap and Td Vaccines ( 1 - Tdap) 1988 Hepatitis B Vaccines (1 of 3 - 19+ 3-dose series) 1988 Cervical Cancer Screening Pa p with HPV Testing (Age 30 to 64) Every 5 Years 12/21/1999 Cervical Cancer Screening with HPV 12/21/1999 Mammogram Screening 2009 Zoster Vaccines (1 of 2) 12/21/2019 COVID-19 Vaccine (2023-2 5 season) 2024 Influenza Adult (#1) 2024 Meningococcal B Vaccine Aged Out No l onger eligible based on patient's age to complete this topic Meningococcal Vaccine Aged Out No elaina danni eligible based on patient's age to complete this topic Pneumococcal Vaccine: Pediat rics (0 to 5 Years) and At-Risk Patients (6 to 64 Years) Aged Out No longer eligible b ased on patient's age to complete this topic RSV Immunizations Under 20 Months Aged Out No longer eligible based on patient's age to complete this topic
--- OUTSIDE RECORDS SUMMARY | 2024-07-22 08:16 | XMS_ITS | Data Portability ---
Author Organization [facility] [place] Address [address] [place] [place] [address] Care Team Providers Care Water Softener Service Supervisor Name Role Phone JOVANA SHUKLAINDER Primary Care Provider [phone] Assessment No assessment recorded. Plan of Treatment Reminders Order Date Submit Date Provider Last Modified By Organization Details Last Modified Time Details Appointments None recorded. Lab urinalysis, dipstick 2022 023 [email or web address], [address], [place], [address], 10:41:52 urinalysis, dipstick 2022 023 [email or web address] [place], [address], [place], [address], 17:04:03 urinalysis, dipstick 2022 [email or web address], [address], [place], [address], 17:49:03 Referral None recorded. Procedures None recorded. Surgeries None recorded. Imaging None recorded. Medication Orders phentermine 30 mg capsule 2022 023 [address]KAYLA [facility] [address] In [facility], [facility] [place], [address], 3 11:05:28 estradiol 1 mg tablet 2022 023 [email or web address] [facility] [address] In [facility], [address] [place], [address], 3 11:08:45 Patient TargetsNo targets recorded. Patient InstructionsNo instructions recorded. Reason for Referral None Reported. Results Created Date Observation Date Name Description Value Unit Range Abnormal Flag Note LastModifiedBy Organization Detail LastModifiedTime 03/07/20 23 03/07/2023 urina lysis , dipst ick Leukocytes TRACE Not Available [facility] [place] [facility] [place] [address], [place], [address], 03/07/2023 10:40:42 03/07/20 23 03/07/2023 urina lysis , dipst ick Nitrite NEGATI VE Not Available [place] [address], [place], [address], 03/07/2023 10:40:42 03/07/20 23 03/07/2023 urina lysis , dipst ick Protein NEGATI VE Not Available [place] [address], [place], [address], 03/07/2023 10:40:42 03/07/20 23 03/07/2023 urina lysis , dipst ick Specific [place] 1.005 Not Available [facility] [address], [place], [address], 03/07/2023 10:40:42 03/07/20 23 03/07/2023 urina lysis , dipst ick Glucose NORMAL Not Available [place] [address], [place], [address], 03/07/2023 10:40:42 04/01/20 23 04/01/2023 CULTU RE: URINE result report SEE RESULT S BELOW Test: Cultu re: Urine Speci men Sourc e: Urine Voide d Speci men Type: Urine Speci men Date: 04/01 4:34 PM Resul t Date: 04/03 11:14 AM Resul t Statu s: Final resul t Abnor mal: No Resul neryg Lab: [facility] [address] [facility] [address] Tel: CULTU RE ----- ----- ----- --- Cultu re resul t (>=3 organ isms prese nt) indic ates possi ble conta minat ion. Repea t cultu re if sympt oms indic ate. Not Available [facility] (Lab) [address], [place], [address], 04/03/2023 12:17:56 04/01/2004/01/2023 urina lysis , dipst ick Leukocytes +1 Not Available [facility] [place] [address], [place], [address], 04/01/2023 17:02:56 04/01/2004/01/2023 urina lysis , dipst ick Nitrite negati ve Not Available [place] [address], [place], [address], 04/01/2023 17:02:56 04/01/2004/01/2023 urina lysis , dipst ick Protein trace Not Available [place] [address], [place], [address], 04/01/2023 17:02:56 04/01/2004/01/2023 urina lysis , dipst ick pH 6 Not Available [place] [address], [place], [address], 04/01/2023 17:02:56 04/01/2004/01/2023 urina lysis , dipst ick Blood +++ Not Available [place] [address], [place], [address], 04/01/2023 17:02:56 04/01/20 23 04/01/2023 urina lysis , dipst ick Specific [place] 1.015 Not Available [facility] [address], [place], [address], 04/01/2023 17:02:56 04/01/20 23 04/01/2023 urina lysis , dipst ick Glucose normal Not Available [place] [address], [place], [address], 04/01/2023 17:02:56 04/24/20 23 04/24/2023 CULTU RE: URINE result report SEE RESULT S BELOW Test: Cultu re: Urine Speci men Sourc e: Urine Voide d Speci men Type: Urine Speci men Date: 2022 5:20 PM Resul t Date: 2022 7:33 PM Resul t Statu s: Final resul t Abnor mal: No Resul ting Lab: [facility] [address] [facility] [address] Tel: CULTU RE ----- ----- ----- --- No growt h in 1 day (dete ction level of 10,00 0 colon ies / ml.) Not Available [facility] (Lab) [address] [facility], [place], [address], 04/25/2023 20:36:01 04/24/2004/24/2023 urina lysis , dipst ick Leukocytes trace Not Available [facility] [address], [place], [address], 04/24/2023 17:48:02 04/24/20 23 04/24/2023 urina lysis , dipst ick Nitrite negati ve Not Available [place] [address], [place], [address], 04/24/2023 17:48:02 04/24/20 23 04/24/2023 urina lysis , dipst ick Protein negati ve Not Available [place] [address], [place], [address], 04/24/2023 17:48:02 04/24/20 23 04/24/2023 urina lysis , dipst ick pH 6 Not Available [place] [address], [place], [address], 04/24/2023 17:48:02 04/24/20 23 04/24/2023 urina lysis , dipst ick Specific [place] 1.010 Not Available [facility] [address], [place], [address], 04/24/2023 17:48:02 04/24/20 23 04/24/2023 urina lysis , dipst ick Ketone +1 Not Available [place] [address], [place], [address], 04/24/2023 17:48:02 04/24/20 23 04/24/2023 urina lysis , dipst ick Glucose normal Not Available [place] [address], [place], [address], 04/24/2023 17:48:02 04/25/20 23 04/25/2023 CT, abdom en + pelvi s, w/ contr ast No observ ation record ed. [address], [place], [address], 04/29/2023 10:58:19 Result Notes None recorded. Procedures Surgical History Date Name Laterality Status Provider Name and Address Organization Details Recorded Time 023 ROBOTIC ASSISTED HYSTERECTOMY W/BILATERAL SALPINGO-OOPHORECT ANALILIA (SURG) completed Iman Manzano [facility] 02/28/2023 09:58:14 023 Endometrial Biopsy completed Peter Gibbons MD [address], [place], [address], [facility] 07/30/2022 17:40:35 023 Date of Last Mammogram completed [facility] 02/25/2023 09:43:35 023 completed [facility] 02/25/2023 09:43:35 022 Date of Last Pap Smear completed [facility] 08/04/2022 10:10:06 022 completed Venessa Starr [facility] 04/24/2022 10:13:34 013 Cholecystectomy completed Peter Gibbons MD [address], [place], [address], [facility] 09/25/2022 12:38:08 998 Caesarean Section completed [facility] 11/06/2022 11:00:30 992 Caesarean Section completed [facility] 11/06/2022 11:00:29 Laparoscopy completed [facility] 04/12/2022 09:56:02 Tubal Ligation completed [facility] 04/12/2022 09:56:02 Colonoscopy completed [facility] 04/12/2022 09:56:02 Caesarean Section completed [facility] 04/12/2022 09:56:03 Endometrial Ablation completed [facility] 01/24/2023 16:20:13 Cholecystectomy completed [facility] 04/25/2023 10:49:59 Imaging Results Imaging Date Name Status LastModified by Organiz ation Details LastModified Time 04/25/2023 CT, abdomen + pelvis, w/ contrast completed [address], [place], [address], 04/29/2023 10:58:19 Procedure Notes None recorded. Medical Equipment None Reported. Allergies No known drug allergies Medications Name Sig Start Date Stop Date Status Note LastModified by Organization Details LastModified Time amoxicillin 500 mg capsule TAKE 1 CAPSULE BY MOUTH THREE TIMES A DAY 07/18 completed Not Available Not Available Not Available doxycycline hyclate 100 mg capsule TAKE 1 CAPSULE BY MOUTH TWICE DAILY FOR 5 DAYS 04/12 completed Not Available Not Available Not Available albuterol sulfate 2.5 mg/3 mL (0.083 %) solution for nebulizatio n INHALE 1 AMPULE VIA NEBULIZER FOUR TIMES DAILY NEEDED FOR SHORTNESS OF BREATH OR WHEEZING active Not Available Not Available No t Available benzonatate 200 mg capsule TAKE 1 CAPSULE BY MOUTH THREE TIMES A DAY 04/12 completed Not Available Not Available Not Available prednisone 20 mg tablet TAKE 2 TABLETS BY MOUTH EVERY DAY FOR 5 DAYS active Not Available Not Available No t Available phentermine 15 mg capsule active Not Available Not Available Not Available venlafaxine ER 150 mg capsule,ext ended release 24 hr TAKE 1 CAPSULE BY MOUTH EVERY DAY active Not Available Not Available No t Available ciprofloxac in 500 mg tablet TAKE 1 TABLET BY MOUTH EVERY 12 HOURS FOR 5 DAYS active Not Available Not Available No t Available sulfamethox azole 800 mg-trimetho prim 160 mg tablet TAKE 1 TABLET BY MOUTH EVERY 12 HOURS FOR 5 DAYS active Not Available Not Available No t Available phentermine 30 mg capsule TAKE 1 CAPSULE BY MOUTH EVERY DAY active Not Available Not Available No t Available oxycodone-a cetaminophe n 5 mg-325 mg tablet TAKE 1 TABLET BY MOUTH EVERY 4 HOURS NEEDED FOR PAIN active Not Available Not Available No t Available estradiol 1 mg tablet TAKE 1 TABLET BY MOUTH EVERY DAY active Not Available Not Available No t Available dexamethaso ne 2 mg tablet TAKE 3 TABLETS (6MG) BY MOUTH ONCE DAILY AT 8AM FOR 5 DAYS 04/12 completed Not Available Not Available Not Available progesteron e micronized 200 mg capsule active Not Available Not Available Not Available [facility] Lisinopril 10 mg tablet 04/12 completed Not Available Not Available Not Available estradiol 2 mg tablet active Not Available Not Available No t Available montelukast 10 mg tablet TAKE 1 TABLET BY MOUTH EVERY DAY active Not Available Not Available No t Available norethindro ne acetate 5 mg tablet TAKE 1 TABLET BY MOUTH EVERY DAY active Not Available Not Available No t Available lisinopril 10 mg-hydrochl orothiazide 12.5 mg tablet TAKE 1 TABLET BY MOUTH EVERY DAY active Not Available Not Available No t Available methylpredn isolone 4 mg tablets in a dose pack TAKE 6 TABLETS ON DAY 1 DIRECTED ON PACKAGE AND DECREASE BY 1 TAB EACH DAY FOR A TOTAL OF 6 DAYS 04/12 completed Not Available Not Available Not Available albuterol sulfate HFA 90 mcg/actuati on aerosol inhaler INHALE 1 - 2 PUFFS BY MOUTH EVERY 4 - 6 HOURS NEEDED FOR SHORTNESS OF BREATH OR WHEEZING active Not Available Not Available No t Available fluticasone propionate 50 mcg/actuati on nasal spray,suspe nsion SPRAY 2 SPRAYS INTO EACH NOSTRIL ONCE A DAY 04/12 completed Not Available Not Available Not Available progesteron e micronized 100 mg capsule 11/05 completed Not Available Not Available Not Available amoxicillin 875 mg-potassiu m clavulanate 125 mg tablet TAKE 1 TABLET BY MOUTH EVERY 12 HOURS FOR 7 DAYS 04/12 completed Not Available Not Available Not Available topiramate 50 mg tablet TAKE 1 TABLET BY MOUTH TWICE A DAY active Not Available Not Available No t Available Symbicort 160 mcg-4.5 mcg/actuati on HFA aerosol inhaler INHALE 2 PUFFS BY MOUTH EVERY 12 HOURS 04/12 completed Not Available Not Available Not Available Mucus Relief ER 600 mg tablet, extended release TAKE 1 TABLET BY MOUTH EVERY 12 HOURS 04/12 completed Not Available Not Available Not Available Breztri Aerosphere 160 mcg-9mcg-4. 8mcg/actuat ion HFA aerosol inhaler TAKE 2 PUFFS BY MOUTH TWICE A DAY RINSE MOUTH AND SPIT AFTER EACH USE. active Not Available Not Available No t Available Wegovy 0.25 mg/0.5 mL subcutaneou s pen injector Inject 0.25 mg every week by subcutane ous route. 11/05 completed Not Available Not Available Not Available Paxlovid 300 mg (150 mg x 2)-100 mg tablets in a dose pack TAKE 2 TABLETS (NIRMATRE LVIR) AND TAKE 1 TABLET (RITONAVI R) BY MOUTH TWICE A DAY FOR 5 DAYS active Not Available Not Available No t Available Vitals Date Recorded Body height Body mass index (BMI) Body weight Systolic blood pressure Diastolic blood pressure Provider Name and Address Organization Details Last Updated DateTime 02/25/2023 157.48 cm 41.2 kg/m2 304879.2 8 g 127 mm[Hg] 84 mm[Hg] [facility] 3 09:43:17 Date Recorded Body height Body mass index (BMI) Body weight Systolic blood pressure Diastolic blood pressure Provider Name and Address Organization Details Last Updated DateTime 03/07/2023 157.48 cm 40.8 kg/m2 077135.1 g 137 mm[Hg] 80 mm[Hg] [facility] 3 10:29:12 Date Recorded Body height Body mass index (BMI) Body weight Systolic blood pressure Diastolic blood pressure Provider Name and Address Organization Details Last Updated DateTime 04/01/2023 157.48 cm 40.8 kg/m2 468726.1 g 131 mm[Hg] 87 mm[Hg] [facility] 3 16:52:32 Date Recorded Body height Provider Name an d Address Organization Details Last Updated DateTime 04/24/2023 157.48 cm [facility] 04/24/2023 17:40:54 Social History Question Answer Notes LastModified by Organizat ion Details LastModified Time Tobacco Smoking Status Former Smoker Paulina Ojeda [facility] 04/01/2023 16:47:03 Do You Have An Advance Directive? No Information not available 04/12/2022 What Is Your Level Of Alcohol Consumption? Occasional Information not available 07/18/2022 How Many Years Have You Consumed Alcohol? 10 Information not available 04/12/2022 Are You Blind Or Do You Have Difficulty Seeing? No Information not available 04/12/2022 What Is Your Level Of Caffeine Consumption? Occasional Information not available 11/06/2022 How Much Tobacco Do You Chew? None Information not available 04/12/2022 In The 14 Days Before Symptom Onset, Have You Had Close Contact With A Laboratory-confir med COVID-19 While That Case Was Ill? No Information not available 04/12/2022 In The 14 Days Before Symptom Onset, Have You Had Close Contact With A Person Who Is Under Investigation For COVID-19 While That Person Was Ill? No Information not available 04/12/2022 Have You Been To An Area Known To Be High Risk For COVID-19? No Information not available 04/12/2022 Are You Deaf Or Do You Have Serious Difficulty Hearing? No Information not available 04/12/2022 What Type Of Diet Are You Following? REGULAR Information not available 07/18/2022 What Is The Highest Grade Or Level Of School You Have Completed Or The Highest Degree You Have Received? 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 No Information not available 04/12/2022 Do You Use Protection During Sex? No Information not available 04/12/2022 Do You Use Your Seat Belt Or Car Seat Routinely? Yes Information not available 04/12/2022 Do You Have Smoke And Carbon Monoxide Detectors In Your Home? Yes Information not available 04/12/2022 At What Age Did You Start Smoking Tobacco? 15 Information not available 04/12/2022 How Much Tobacco Do You Smoke? No Information not available 04/12/2022 Do You Feel Stressed (tense, Restless, Nervous, Or Anxious, Or Unable To Sleep At Night)? [id number] Information not available 04/12/2022 Do You Use Any Illicit Or Recreational Drugs? No Information not available 04/12/2022 Do You Use Sunscreen Routinely? No Information not available 04/12/2022 How Many Years Have You Smoked Tobacco? 30 Information not available 04/12/2022 Have You Used IV Drugs? No Information not available 04/12/2022 Sex: Unknown Functional Status Question Answer Note LastModified by Organizat ion Details LastModified Time Do you have difficulty walking or climbing stairs? No [email or web address] Information not available 04/01/2023 Are you able to walk? YESWOREST Information not available 04/12/2022 Are you able to care for yourself? Yes Information not available 04/01/2023 Do you have difficulty dressing or bathing? No Information not available 04/01/2023 What is your exercise level? Moderate Information not available 11/06/2022 Mental Status None recorded. Family History Relationship Description Onset Age of this Age Resolved Age Notes LastModified by Organization Details LastModified Time Mother Anemia Not available 02/25/2023 09:43:21 Mother Depressive disorder Not available 2022 09:43:21 Mother Heart disease 50 Not available 2022 09:43:21 Medical History Condition Response Anxiety Disorder Y Pulmonary (TB, Asthma) Y Endometriosis Y Headaches Y Urinary Tract Infection Y Hypertension Y Lung Disease Y Gynecological History Statement/Question Response Abnormal Pap N Date of Last Mammogram 07/06/2022 On BCP's at Conception? N Y STIs/STDs Y HPV Vaccine N 07/06/2022 Current Control Method Hysterectom y Age at First Child 19 If Post Menopausal, Age at Menopause 44 Sexually Active? N Age of first menstrual cycle 12 Date of Last Pap Smear 04/12/2022 Sexual Problems? Y LMP Unknown 02/15/2022 Y Obstetrics History GPAL:G 2 P 0 0 0 2 Type Value Living 2 Total 2 Past Encounters Encounter ID Performer Location Encounter Start Date Encounter Closed Date Diagnosis/Indication Diagnosis SNOMED-CT Code Diagnosis ICD10 Code Diagnosis Note [id number] HARDEEP Juarez [place] [address],[facility] [place] [address] 04/12/2022 09:24:40 04/12/2022 10:38:19 Pain in pelvis 88076199 R10.2 Today we agreed to update TVUS and pap smearShe will RTC for pelvic u/s f/u with MD consult given her hx of chronic pelvic pain and endometrio sisPatient agrees to this planED precaution s discussed History of endometriosis 4563048236 1324006 Z87.42 Dyspareunia 35816675 N94 .10 Encouraged crisco twice daily to vulva, use this as lubricatio n with intercours e. May need to consider vaginal estrogen. Time spent in visit is a total of 35 mins with at least 50% of visit consisting of counseling and review of plan of care. [id number] Beverly Root [place] [address],[place] [address] 04/18/2022 16:37:42 04/18/2022 17:53:47 Pain in pelvis 51170663 R10.2 N94.10 [id number] Peter Gibbons MD [place] [address],[place] [address] 04/24/2022 10:11:08 04/24/2022 10:50:43 Menopausal symptom 84984432 N95.1 Pain in pelvis 90406542 R10.2 N94.10 This patient is a 51-year-ol d female who presents to discuss pelvic pain. She has a burning midline pelvic pain that is accompanie d with pressure. She has a history of endometrio sis. It is intermitte nt. It lasts hours. The thing is provocativ e or palliative . Pelvic ultrasound was normal. We spent over 20 minutes face-to-fa ce. More than 50% was counseling . We talked about solutions. She also has menopausal symptoms. We talked about her symptoms in detail. Talked about possible solutions. She is well controlled blood pressure. Hypertensi on. We agreed to a trial of estradiol and progestero ne. She will follow-up in 1 month. We did offer her a diagnostic laparoscop y. I cannot identify a medical therapy for a postmenopa usal /menopausa l/perimeno pausal woman with pelvic pain. [id number] Zulema BautistaHARDEEP [place] [address] [address] 05/25/2022 09:38:46 05/25/2022 14:46:49 Obesity 103402013 E66.9 51yo Presents for initial weight management consultati Tia is currently at her highest weight - 242lbs BMI 44.2Weight has increased with menopausal and job changes, as well as quitting smokingShe has lost weight previously doing a keto dietShe drinks water and unsweet tea, eats 1-2 meals per day. 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 [id number] Peter Gibbons MD [place] [address] [address] 06/02/2022 11:05:04 06/04/2022 14:48:23 Obesity 680087147 E66.9 this patient is a 51-year-ol d female presents for follow-up on weight management . We spent 40 minutes face-to-fa ce. More than 50% was counseling . We talked about medical weight management . We talked in detail about risks, benefits, and efficacy of the various medication s. Talked about each medication in this class. Talked about activity. Talked about diet changes. Talked about NG consumptio n energy expenditur e. We agreed to start phentermin e today along with topiramate . She does have a nonspecifi c T-wave abnormalit y that appears in significan t to me. She has a cardiology consult pending. She will follow-up in 2 weeks. [id number] Zulema GracielashalondaHARDEEP [place] [address],[place] [address] 07/18/2022 16:51:14 07/18/2022 18:20:55 Postmenopausal bleeding 62677309 N95.0 Today we discussed postmenopa usal bleeding in relation to recently starting estrogen/p rogesteron e therapyWe agreed to pelvic u/s for further evaluation STI testing sentCBC orderedDis cussed EMB pending pelvic u/s resultRTC for pelvic u/s and u/s f/u appointmen Yancy precaution s discussed, to notify office of any change in symptoms/h eavy vaginal bleeding/p ain, etc Time spent in visit is a total of 22 mins with at least 50% of visit consisting of counseling and review of plan of care. Venereal d isease screening 446357355 Z11.3 [id number] Jerica Carroll [place] [address],[place] [address] 07/19/2022 17:21:36 07/20/2022 12:11:14 Abnormal uterine bleeding 8895509063 9100 N93.9 [id number] Peter Gibbons MD [place] [address],[place] [address] 07/30/2022 16:22:13 07/30/2022 17:44:45 Postmenopausal bleeding 50524009 N95.0 endometria l biopsy was intensely painful, it was completed without complicati ons. To follow-up on biopsy results [id number] Peter Gibbons MD [place] [address],[place] [address] 08/04/2022 09:41:42 08/04/2022 11:13:33 Abnormal uterine bleeding 3589527095 9100 N93.9 Obesity 956070901 E66.9 this patient is a 51-year-ol d female presents for follow-up on weight management . We spent 20 minutes face-to-fa ce. More than 50% was counseling . We talked about medical weight management . We talked in detail about risks, benefits, and efficacy of the various medication s. we talked about her activity level. She is exercising doing resistance training. She is doing [employer] work. She has not lost any weight. She is very frustrated . I encouraged her to be persistent . She is doing all the right things. Her diet sounds good. We discussed diet in great detail. We shared tips on low-calori e snacks. We agreed to stay on the same dose of phentermin e. Also talked about abnormal uterine bleeding and increased her progestero ne to 200 mg [id number] Peter Gibbons MD [place] [address] [place] [address] 08/20/2022 15:36:22 08/20/2022 20:52:51 [id number] Peter Gibbons MD [place] [address] [place] [address] 09/25/2022 11:10:42 09/25/2022 13:05:48 Obesity 246455265 E66.9 this patient is a 51-year-ol d female presents for follow-up on weight management . She has been taking phentermin e. We looked into the G LP 1 agonist. She has found a savings card for the Wegovy. we prescribed phentermin e and wegovy. She will increase her dose to phentermin e to 30 mg. She is unlikely to get the wegovy. if she does she will hold off on the phentermin e. Spent 20 minutes face-to-fa ce. More 50% was counseling . [id number] Peter Gibbons MD [facility] [address] [place] [address] 11/06/2022 10:30:20 11/06/2022 11:54:30 Obesity [id number] E66.9 this patient is a 51-year-ol d female presents for follow-up on weight management . She has been taking phentermin e. We looked into the G LP 1 agonist. she was unable to get the GLP 1 agonist.. She previous Increased her dose to phentermin e to 30 mg. . Spent 40 minutes face-to-fa ce. More 50% was counseling . we did body compositio n testing today. We discussed those results. We talked in detail about diets and exercise. Talked about the importance of lean body mass. She is doing some resistance training. She has refining her diet she is thinking about this and working on it. I am confident she is going to do well here. [id number] Peter Gibbons MD [facility] [address],[place] [address] 12/24/2022 17:00:59 12/25/2022 10:26:09 Postmenopausal bleeding [id number] N95.0 this patient is a 52-year-ol d female with postmenopa usal bleeding. We have tried some medication changes previously . This was confined to changes in estradiol and Prometrium doses. We are going to change the progestero ne to norethindr one today. We talked about treatment options. We spent 20 minutes face-to-fa ce. More than 50% was counseling . She was prescribed the 1 mg of estradiol a and 5 mg norethindr one. [id number] Peter Gibbons MD [facility] [address],[place] [address] 01/05/2023 10:37:11 01/07/2023 14:16:33 Obesity [id number] E66.9 This patient is a 52 year old female presents for follow-up on weight management . She has not been able to lose an appreciabl e amount of weight. This may be due to changes in her body compositio n. She is doing resistance training and is very active now. She was not active before. Body compositio n may be telling and her situation. She has not been quantifyin g her calories yet. We discussed her diet and with 3 some examples of what she is eating. We agreed to some strict calorie counting. We will continue medication at the current dose, phentermin e, 30 mg spent over 20 minutes face-to-fa ce pain with 50% was counseling . [id number] Peter Gibbons MD [facility] [address],[place] [address] 01/24/2023 15:59:56 01/24/2023 17:07:51 Abnormal uterine bleeding [id number] 9100 N93.9 This female is a 52-year-ol d with persistent abnormal uterine bleeding. It has persisted despite various types of hormonal treatment. Been unable to control her bleeding. We have been trying for several/6 months to control bleeding. The patient would like to proceed with definitive surgical treatment. We talked about hysterecto my. We talked about robotic assisted hysterecto my and bilateral salpingect analilia. We are going to proceed with hysterecto my. We had made a decision to perform surgery today. [id number] Peter Gibbons MD [facility] [address],[place] [address] 02/25/2023 09:38:34 02/26/2023 11:00:08 Abnormal uterine bleeding [id number] 9100 N93.9 this patient is a 52-year-ol d female with abnormal uterine bleeding. We agreed to perform robotic assisted hysterecto my with bilateral salpingo-o ophorectom y. She understand s the risks, benefits, and alternativ es. She has completed the informed consent process and is ready to proceed. [id number] Radha Gonzalez [facility] [address],[place] [address] 03/01/2023 10:12:41 03/01/2023 10:14:09 [id number] Peter Gibbons MD [facility] [address],[place] [address] 03/07/2023 10:22:11 03/07/2023 11:13:38 Urinary symptoms [id number] R39.9 Postmenopa usal bleeding [id number] N95.0 \ Obesity [id number] E66.9 Postoperative care [id number] Z48.89 52-year-ol d female presents for postop follow-up. She is 1 week postop normally hysterecto my, minimally invasive. She has no complaints . She is doing well. Incisions are clean dry and intact. She is eager to return to work. No complaints , problems. Follow-up as needed [id number] Peter Gibbons MD [facility] [address] [address] 04/01/2023 16:46:36 04/02/2023 08:49:42 Pain in pelvis [id number] R10.2 N94.10 49-year-ol d female with postop pelvic pain and pressure. It extends up into her upper abdomen. Pain is severe. It is sharp. But there was also considerab le pressure in her pelvis. She is 4 weeks postop from a hysterecto my. Patient also has urinary tract infection we will treat with antibiotic s. We need imaging of her abdomen and pelvis to confirm there were no postoperat jeffrey complicati ons. [id number] Peter Gibbons MD [facility] [address] [address] 04/24/2023 17:06:18 04/24/2023 18:10:20 Urinary symptoms [id number] R39.9 Health Concerns Section Related Observation LastModified by Organization Detai ls LastModified Time None Recorded Concern Status LastModified by Organization Details LastModified Time None Recorded Advance Directives Directive N: Payers Encounter Date Sequence Insurance Name Policy Number Policy Shelby Covered Member ID Shelby Member ID Guarantor Name 02/25/2023 1 [employer] [id number] Dharmesh Rey [id number] Eli Rey 02/27/2023 1 [employer] [id number] Dharmesh Rey [id number] Eli Rey 03/07/2023 1 [employer] [id number] Dharmesh Rey [id number] Eli Rey 04/01/2023 1 [employer] [id number] [place]roso Krissy [id number] Eli Rey 04/24/2023 1 [employer] [id number] Dharmesh Rey [id number] Eli Rey Notes Date Note Type Note Provider Name and Address Organization Details Recorded Time 02/25/2023 text/html This patient is a 52-year-old female with abnormal uterine bleeding that is refractory to medical treatment. We have agreed perform robotic assisted hysterectomy with bilateral salpingo-oophorecto my. The patient understands the procedure. The procedure was described to the patient in great detail. the patient also understands the risks. The risks were also explained in detail. She understands that injuries May occur during surgery. She understands these injuries can result in hospitalization, more surgery, and severe illness. She understands there is risk of hemorrhage and infection. Peter Gibbons MD [address], [place], [address], [facility] 02/25/2023 18:17:55 03/07/2023 text/html 52-year-old vanessa bello presents for postop follow-up. She is 1 week postop normally hysterectomy, minimally invasive. She has no complaints. She is doing well. Incisions are clean dry and intact. She is eager to return to work. No complaints, problems. Follow-up as needed Peter Gibbons MD [address], [place], [address], [facility] 03/07/2023 11:13:21 04/01/2023 text/html 49-year-old vanessa bello with postop pelvic pain and pressure. It extends up into her upper abdomen. Pain is severe. It is sharp. But there was also considerable pressure in her pelvis. She is 4 weeks postop from a hysterectomy. Patient also has urinary tract infection we will treat with antibiotics. We need imaging of her abdomen and pelvis to confirm there were no postoperative complications. Peter Gibbons MD [address], [place], [address], [facility] 04/01/2023 21:04:03 OBGyn Episode Ob Episode Information Episode Created Date Number of Fetuses Patient Bloodtype Patient rh Status Prepregnancy Weight lbs Domestic Partner Domestic Partner Phone Father Name Second Rigger Status 04/12/20 22 1 CLOSED Fetus Data First Name Last Name Admitted to NICU Weight (g) Sex Living Outcome Pediatric Complications Fetus ID Race Codes Race Delivery Type 3798.83 3 F Full Term [id number] Primary Tramaine Calculation Initial Tramaine Date Initial Exam Date Initial Exam Provider Initial Ultrasound Date Last Menstrual Period Date Ultra Sound Weeks Gestation 0 Eighteen To Twenty Week Tramaine Update Ultra Sound Date Fundal Height At Umbil Quickening Date Ultra Sound Latest Weeks Gestation Final Tramaine Confirmed By Final Tramaine Confirmed Date Final Tramaine Date Ultra Sound Latest Days Gestation 0 0 Menstrual History Last Menstrual Date Menses Monthly On Bcp Conception Prior Menses Frequency Hcg Plus Date Menarche Onset Age Delivery Information Delivery Date Delivery Type Labor Anesthesia Weeks Gestation Incision Type Labor Labor Length Hrs Delivered By Post Complications Tubal Sterilization Discharge Date Comments 2 Discharge Information Feeding Method Contraceptive Method Maternal HG B and HCT Levels Ob Episode Information Episode Created Date Number of Fetuses Patient Bloodtype Patient rh Status Prepregnancy Weight lbs Domestic Partner Domestic Partner Phone Father Name Second Rigger Status 04/12/20 22 1 CLOSED Fetus Data First Name Last Name Admitted to NICU Weight (g) Sex Living Outcome Pediatric Complications Fetus ID Race Codes Race Delivery Type F Full Term [id number] Repeat Tramaine Calculation Initial Tramaine Date Initial Exam Date Initial Exam Provider Initial Ultrasound Date Last Menstrual Period Date Ultra Sound Weeks Gestation 0 Eighteen To Twenty Week Tramaine Update Ultra Sound Date Fundal Height At Umbil Quickening Date Ultra Sound Latest Weeks Gestation Final Tramaine Confirmed By Final Tramaine Confirmed Date Final Tramaine Date Ultra Sound Latest Days Gestation 0 0 Menstrual History Last Menstrual Date Menses Monthly On Bcp Conception Prior Menses Frequency Hcg Plus Date Menarche Onset Age Delivery Information Delivery Date Delivery Type Labor Anesthesia Weeks Gestation Incision Type Labor Labor Length Hrs Delivered By Post Complications Tubal Sterilization Discharge Date Comments 8 Discharge Information Feeding Method Contraceptive Method Maternal HG B and HCT Levels
--- OUTSIDE RECORDS SUMMARY | 2024-07-22 08:16 | XMS_ITS | Data Portability ---
Author Organization [facility], Main Office Address [address] [place] [address] Care Team Providers Care White Sugar Syrup Operator Name Role Phone STEPHEN TEJADA Primary Care Provider Assessment No assessment recorded. Plan of Treatment Reminders Order Date Submit Date Provider Last Modified By Organization Details Last Modified Time Details Appointments None recorded. Lab vitamin D, 25-hydroxy, total, serum [address] (Lab), [address] [place], [address], 3 08:33:26 CMP, serum or plasma 2022 023 [facility] (Lab), [address] [place], [address], 3 13:12:26 CBC w/ auto diff 2022 023 [facility] (Lab), [address] [place], [address], 3 12:02:16 vitamin D, 25-hydroxy, total, serum [address] (Lab), [address] [place], [address], 4 14:34:10 CMP, serum or plasma [address] (Lab), [address] [place], [address], 4 14:34:10 CBC w/ auto diff 2023 024 [email or web address] [facility] (Lab), [address] [place], [address], 4 14:34:10 Referral None recorded. Procedures None recorded. Surgeries None recorded. Imaging XR, hip, unilateral, 2 or 3 view 2023 024 [facility] (Imaging), [address] [facility] [address] [address], [place], [address], 4 17:47:16 XR, lumbar spine 2023 024 [facility] (Imaging), [address] [facility] [address], [place], [address], 4 18:11:35 Medication Orders montelukast 10 mg tablet 2022 023 [facility] [address] [facility], [address] [place], [address], 3 14:27:38 fluticasone propionate 50 mcg/actuati on nasal spray,suspe nsion 2022 023 [facility] [address] [facility], [address] [place], [address], 3 14:27:38 venlafaxine ER 150 mg capsule,ext ended release 24 hr 2022 023 [facility] [address] [facility], [address] [place], [address], 3 14:27:38 lisinopril 10 mg-hydrochl orothiazide 12.5 mg tablet 2022 023 [facility] [address] In [facility], [facility] [place], [address], 3 14:27:38 meloxicam 15 mg tablet 2023 024 [email or web address] [address] In [facility], [address] [place] [address], [address], 4 16:51:16 cyclobenzap rine 10 mg tablet 2023 024 [facility] [address] In [facility], [address] [place] [address], [address], 4 16:50:54 montelukast 10 mg tablet 2023 024 [facility] [address] In [facility], [address] [place] [address], [address], 4 16:52:10 venlafaxine ER 150 mg capsule,ext ended release 24 hr 2023 024 [facility] [address] In [facility], [address] [place] [address], [address], 4 16:52:09 lisinopril 10 mg-hydrochl orothiazide 12.5 mg tablet 2023 024 [facility] [address], [address], 4 16:52:10 Patient TargetsNo targets recorded. Patient InstructionsNo instructions recorded. Reason for Referral None Reported. Results Created Date Observation Date Name Description Value Unit Range Abnormal Flag Note LastModifiedBy Organization Detail LastModifiedTime 06/22/19 22 06/22/2021 XR, chest No observ ation record ed. [id number], [place], [address], 08/15/2022 15:18:47 06/29/19 22 06/29/2021 CT, chest , w/o contr ast No observ ation record ed. [id number], [place], [address], 08/15/2022 15:18:47 07/02/19 22 07/02/2021 XR, chest , 2 view No observ ation record ed. MIGRATION. [address], [place], [address], 08/15/2022 15:18:47 07/04/19 22 06/29/2021 XR, chest No observ ation record ed. MIGRATION. Not Available 08/15/2022 15:18:47 07/04/19 22 06/29/2021 CT, angio gram, chest , w/o contr ast No observ ation record ed. MIGRATION. Not Available 08/15/2022 15:18:47 07/04/19 22 07/04/2021 XR, chest , 2 view No observ ation record ed. MIGRATION. [address] [facility], [place], [address], 08/15/2022 15:18:47 08/17/19 22 08/16/2021 XR, chest No observ ation record ed. MIGRATION. [address] [facility], [place], [address], 08/15/2022 15:18:47 08/17/19 22 08/16/2021 PFT, compl ete No observ ation record ed. MIGRATION. [address] [facility], [place], [address], 08/15/2022 15:18:47 03/07/20 22 03/07/2022 LDCT, chest , for lung cance r jessa goyalg No observ ation record ed. MIGRATION. [address] [facility], [place], [address], 08/15/2022 15:18:47 04/30/20 22 04/30/2022 MAMMO , scree virgen, digit al, bilat eral No observ ation record ed. [id number], [place], [address], 08/15/2022 15:18:47 08/23/19 23 08/21/2022 US, echoc ardio gram No observ ation record ed. BARCODE Not Available 2022 16:18:06 01/08/20 23 01/07/2023 XR, chest , 2 view No observ ation record ed. [address], [place], [address], 01/08/2023 09:28:47 01/08/20 23 01/07/2023 CT, angio gram, chest + abdom en + pelvi s, w/ contr ast No observ ation record ed. [address] [facility], [place], [address], 01/08/2023 09:28:47 10/29/19 24 04/25/2023 CT, abdom en + pelvi s, w/ contr ast No observ ation record ed. BARCODE Not Available 2023 18:32:57 10/31/1910/29/2023 XR, hip, unila teral , 2 or 3 view No observ ation record ed. [email or web address] [facility] (Imaging) [address] [place], [place] [address]e [facility], [place], [address], 11/05/2023 16:10:49 11/01/19 24 10/29/2023 XR, lumba r spine No observ ation record ed. [address] (Imaging) [address] [place] [address] [place] [address], [address], 11/05/2023 15:58:29 12/05/19 24 12/03/2023 XR, chest , 2 view No observ ation record ed. BARCODE Not Available 2023 17:36:33 Result Notes None recorded. Problems Name Problem SNOMED Code Status Onset Date Resolution Date Notes Provider Name and Address Organization Details Recorded Time Chronic obstruct jeffrey pulmonar y disease 56748891 Active 2020 Not Available [facility] 3 15:15:12 Acute sinusiti s 71317674 Active 2022 Not Available [facility] 3 15:15:12 Transiti on of care 36877811721 05 Completed 202104/03/2022 Not Available [facility] 3 15:15:12 Chronic depressi on 234769378 Active Not Available [facility] 3 15:15:12 Pleurisy 881006009 Completed Not Available [facility] 3 15:15:12 Abdomina l pain 41626366 Completed Not Available [facility] 3 15:15:12 Dyspnea 422366452 Completed Not Available [facility] 3 15:15:12 Numbness of hand 620797790 Completed Not Available [facility] 3 15:15:12 Hypoxia 057913745 Active 2021 Not Available [facility] 3 15:15:13 Obesity 323180850 Active Not Available [facility] 3 15:15:13 Solitary nodule of lung 877707334 Active [address] 2019 Not Available [facility] 3 15:15:13 Multiple nodules of lung 823047730 Active 2021 Not Available [facility] 3 15:15:13 Contusio n of lower leg 28471342 Completed Not Available [facility] 3 15:15:13 Anxiety 87415258 Active Not Available [facility] 3 15:15:13 Upper respirat ory infectio n 90510177 Completed Not Available [facility] 3 15:15:13 Essentia l hyperten susana 49214588 Active Not Available [facility] 3 15:15:14 Allergic rhinitis 96393013 Active 2021 Not Available [facility] 3 15:15:14 Urinary tract infectio us disease 67507428 Completed Not Available [facility] 3 15:15:14 Duodenit is 61584374 Active 2020 Not Available [facility] 3 15:15:14 Sleep apnea 62324926 Active on cpap, sleep study 03/02 Not Available [facility] 3 15:15:14 Fatigue 20490131 Completed 202004/03/2022 Not Available [facility] 3 15:15:14 Fatigue 37872194 Completed Not Available [facility] 3 15:15:15 Pulmonar y emphysem a 26901031 Active 2017 Not Available [facility] 3 15:15:15 Pneumoni a caused by SARS-CoV -2 [id number] 8782225 Completed 202104/03/2022 Not Available [facility] 3 15:15:15 Pain of left hip joint 39670016982 9100 Active 2023 Stephen Tejada MD [address], [place], [address] , [employer] 4 14:59:38 Low back pain 663383814 Active 2023 Stephen Tejada MD [address], [place], [address] , [facility] 4 15:01:10 Hip pain 10708092 Active 2023 Sarah Ma MA null, [facility] 4 16:16:56 Hernia of anterior abdomina l wall 171060084 Active 2023 Stephen Tejada MD [address], [place], [address] , [facility] 4 16:54:58 Problem Notes None recorded. Procedures Surgical History Date Name Laterality Status Provider Name and Address Organization Details Recorded Time Sinus Surgery completed Not Available [facility] 08/15/2022 15:13:12 Carpal tunnel surgery completed Not Available [facility] 08/15/2022 15:13:12 section completed Not Available [facility] 08/15/2022 15:13:12 Tubal Ligation completed Not Available [facility] 08/15/2022 15:13:12 Imaging Results Imaging Date Name Status LastModified by Organization Details LastModified Time 06/22/2021 XR, chest completed [id number], [place], [address], 08/15/2022 15:18:47 06/29/2021 XR, chest completed [id number] 0026 Information not available 08/15/2022 15:18:47 06/29/2021 CT, angiogram, chest, w/o contrast completed [id number] Information not available 08/15/2022 15:18:47 06/29/2021 CT, chest, w/o contrast completed [id number], [place], [address], 08/15/2022 15:18:47 07/02/2021 XR, chest, 2 view completed MIGRATION. [id number], [place], [address], 08/15/2022 15:18:47 07/04/2021 XR, chest, 2 view completed MIGRATION. [id number], [place], [address], 08/15/2022 15:18:47 08/16/2021 XR, chest completed [id number], [place], [address], 08/15/2022 15:18:47 08/16/2021 PFT, complete completed [id number], [place], [address], 08/15/2022 15:18:47 03/07/2022 LDCT, chest, for lung cancer screening completed [id number], [place], [address], 08/15/2022 15:18:47 04/30/2022 MAMMO, screening, digital, bilateral completed [id number] [facility], [place], [address], 08/15/2022 15:18:47 08/21/2022 US, echocardiogram completed BARCODE Inform ation not available 08/22/2022 16:18:06 01/07/2023 XR, chest, 2 view completed [address] [place] [address], [address], 01/08/2023 09:28:47 01/07/2023 CT, angiogram, chest + abdomen + pelvis, w/ contrast completed [address] [facility] [place], [address], 01/08/2023 09:28:47 04/25/2023 CT, abdomen + pelvis, w/ contrast completed BARCODE Information not available 10/29/2023 18:32:57 10/29/2023 XR, hip, unilateral, 2 or [address] (Imaging) [address] [place], [place] [address]e [address] [place] [address], [address], 11/05/2023 16:10:49 10/29/2023 XR, lumbar spine completed [address] (Imaging) [address] [place] [address], [address], 11/05/2023 15:58:29 12/03/2023 XR, chest, 2 view completed BAR[facility] Informa tion not available 12/05/2023 17:36:33 Procedure Notes None recorded. Medical Equipment None Reported. Medications Name Sig Start Date Stop Date Status Note LastModified by Organization Details LastModified Time cyclobenzap rine 10 mg tablet Take 1 tablet every day by oral route at bedtime. 03/02 completed Not Available Not Available Not Available amoxicillin 500 mg capsule TAKE 1 CAPSULE BY MOUTH THREE TIMES A DAY 01/31 completed Not Available Not Available Not Available venlafaxine ER 37.5 mg capsule,ext ended release 24 hr TK ONE C PO QD FOR ONE WEEK THEN TK 2 CS PO DAILY active Not Available Not Available No t Available prednisone 10 mg tablet PLEASE SEE ATTACHED FOR DETAILED DIRECTION S active Not Available Not Available No t Available venlafaxine ER 75 mg capsule,ext ended release 24 hr Take 1 capsule(s ) every day by oral route. active Not Available Not Available No t Available doxycycline hyclate 100 mg capsule TAKE 1 CAPSULE BY MOUTH TWICE DAILY FOR 5 DAYS 07/18 completed Not Available Not Available Not Available albuterol sulfate 2.5 mg/3 mL (0.083 %) solution for nebulizatio n INHALE 1 AMPULE VIA NEBULIZER FOUR TIMES DAILY NEEDED FOR SHORTNESS OF BREATH OR WHEEZING 07/18 completed Not Available Not Available Not Available ibuprofen 800 mg tablet TAKE 1 TABLET BY MOUTH THREE TIMES A DAY 05/30 completed Not Available Not Available Not Available benzonatate 200 mg capsule Take 1 capsule 3 times a day by oral route. active Not Available Not Available No t Available citalopram 10 mg tablet Take 1 tablet every day by oral route. 06/13 completed Not Available Not Available Not Available meloxicam 15 mg tablet Take 1 tablet every day by oral route. 03/02 completed Not Available Not Available Not Available ondansetron HCl 4 mg tablet Take 1 tablet 3 times a day by oral route. 10/05 completed Not Available Not Available Not Available clobetasol 0.05 % topical cream APPLY A THIN LAYER TO THE AFFECTED AREA(S) BY TOPICAL ROUTE 2 TIMES PER DAY active Not Available Not Available No t Available Zithromax Z-Kavin 250 mg tablet TAKE 2 TABLETS (500 MG) BY ORAL ROUTE ONCE DAILY FOR 1 DAY THEN 1 TABLET (250 MG) BY ORAL ROUTE ONCE DAILY FOR 4 DAYS 08/29 completed Not Available Not Available Not Available permethrin 5 % topical cream APPLY (THOROUGH LY MASSAGE INTO SKIN FROM HEAD TO SOLES OF FEET) BY TOPICAL ROUTE ONCE LEAVE ON FOR 8-14 HR, THEN REMOVE BY THOROUGH WASHING active Not Available Not Available No t Available phentermine 15 mg capsule TAKE 1 CAPSULE BY MOUTH EVERY DAY 03/02 completed Not Available Not Available Not Available venlafaxine ER 150 mg capsule,ext ended release 24 hr TAKE 1 CAPSULE BY MOUTH EVERY DAY 2023 active Not Available Not Available Not Avai lable amoxicillin 500 mg tablet Take 1 tablet 3 times a day by oral route for 7 days. 06/01 completed Not Available Not Available Not Available lorazepam 0.5 mg tablet TAKE 1 TABLET BY MOUTH TWICE A DAY NEEDED active Not Available Not Available No t Available estradiol 1 mg tablet TAKE 1 TABLET BY MOUTH EVERY DAY 03/02 completed Not Available Not Available Not Available dexamethaso ne 2 mg tablet TAKE 3 TABLETS (6MG) BY MOUTH ONCE DAILY AT 8AM FOR 5 DAYS 07/18 completed Not Available Not Available Not Available lisinopril 10 mg tablet TAKE ONE TABLET BY MOUTH ONCE DAILY 02/05 completed Not Available Not Available Not Available Advair Diskus 250 mcg-50 mcg/dose powder for inhalation INHALE 1 PUFF BY MOUTH TWICE A DAY. RINSE AND SPIT, THIS REPLACES SYMBICORT 06/06 completed Not Available Not Available Not Available estradiol 2 mg tablet TAKE 1 TABLET BY MOUTH EVERY DAY 02/21 completed Not Available Not Available Not Available hydrocortis one 2.5 % topical cream active Not Available Not Available Not Available montelukast 10 mg tablet TAKE 1 TABLET BY MOUTH EVERY DAY 2023 active Not Available Not Available Not Avai lable Levaquin 500 mg tablet Take 1 tablet every 24 hours by oral route for 14 days. 07/20 completed Not Available Not Available Not Available lorazepam 1 mg tablet Take 1 tablet twice a day by oral route as needed. active Not Available Not Available No t Available lisinopril 10 mg-hydrochl orothiazide 12.5 mg tablet TAKE 1 TABLET BY MOUTH EVERY DAY active Not Available Not Available No t Available methylpredn isolone 4 mg tablets in a dose pack take as directed 07/18 completed Not Available Not Available Not Available Vitamin D2 1,250 mcg (50,000 unit) capsule Take 1 capsule every week by oral route for 90 days. active Not Available Not Available No t Available oxybutynin chloride 5 mg tablet TAKE 1 TABLET 3 TIMES A DAY active Not Available Not Available No t Available fluticasone propionate 50 mcg/actuati on nasal spray,suspe nsion [place] 2 sprays every day by intranasa l route. 2023 active Not Available Not Available Not Avai lable progesteron e micronized 100 mg capsule TAKE 2 CAPSULES BY MOUTH EVERY DAY 03/02 completed Not Available Not Available Not Available amoxicillin 875 mg-kaitu m clavulanate 125 mg tablet Take 1 tablet every 12 hours by oral route for 7 days. 07/18 completed Not Available Not Available Not Available cyclobenzap rine 5 mg tablet TAKE 1 TABLET BY MOUTH THREE TIMES A DAY NEEDED active Not Available Not Available No t Available topiramate 50 mg tablet TAKE 1 TABLET BY MOUTH TWICE A DAY 03/02 completed Not Available Not Available Not Available Spiriva with HandiHaler 18 mcg and inhalation capsules Inhale 1 capsule every day by inhalatio n route for 30 days. 02/05 completed Not Available Not Available Not Available Symbicort 160 mcg-4.5 mcg/actuati on HFA aerosol inhaler INHALE 2 PUFFS BY MOUTH EVERY 12 HOURS active Not Available Not Available No t Available Symbicort 80 mcg-4.5 mcg/actuati on HFA aerosol inhaler Inhale 2 puffs twice a day by inhalatio n route. 01/05 completed Not Available Not Available Not Available Mucus Relief ER 600 mg tablet, extended release TAKE 1 TABLET BY MOUTH EVERY 12 HOURS 04/03 completed Not Available Not Available Not Available B12 01/05 completed Not Available Not Available Not Available Fluzone Quad (PF) 60 mcg (15 mcg x 4)/0.5 mL IM syringe ADM 0.5ML IM UTD 05/30 completed Not Available Not Available Not Available Breztri Aerosphere 160 mcg-9mcg-4. 8mcg/actuat ion HFA aerosol inhaler TAKE 2 PUFFS BY MOUTH TWICE A DAY . RINSE MOUTH AND SPIT AFTER EACH USE active Not Available Not Available No t Available Vitals Date Recorded Body mass index (BMI) Body mass index (BMI) Body height Body height Oxygen saturation Oxygen saturation in Arterial blood by Pulse oximetry Oxygen saturation Oxygen saturation in Arterial blood by Pulse oximetry Heart rate Heart rate Body weight Body weight Systolic blood pressure Diastolic blood pressure Systolic blood pressure Diastolic blood pressure Provider Name and Address Organization Details Last Updated DateTime 3 44.8 kg/m2 44.1 kg/m2 157.48 cm 157.48 cm 94 % 94 % 98 % 98 % 107 /min 95 /min 039369. 13 g 608064. 76 g 130 mm[Hg] 80 mm[Hg] 124 mm[Hg] 80 mm[Hg] Not Available [facility] 3 15:13:54 Date Recorded Body height Body mass index (BMI) Body weight Body temperature Heart rate Oxygen saturation Oxygen saturation in Arterial blood by Pulse oximetry Systolic blood pressure Diastolic blood pressure Provider Name and Address Organization Details Last Updated DateTime 3 157.48 cm 40.6 kg/m2 457521. 51 g 97.1 [degF] 98 /min 97 % 97 % 112 mm[Hg] 74 mm[Hg] Leanne sheets [facility] [employer] 3 14:06:17 Date Recorded Body height Body mass index (BMI) Body weight Body temperature Heart rate Oxygen saturation Oxygen saturation in Arterial blood by Pulse oximetry Systolic blood pressure Diastolic blood pressure Provider Name and Address Organization Details Last Updated DateTime 4 157.48 cm 43.7 kg/m2 251330. 94 g 98.1 [degF] 102 /min 98 % 98 % 120 mm[Hg] 80 mm[Hg] Bernice García [facility] [employer] 4 14:12:37 Date Recorded Body height Body mass index (BMI) Body weight Body temperature Heart rate Oxygen saturation Oxygen saturation in Arterial blood by Pulse oximetry Systolic blood pressure Diastolic blood pressure Provider Name and Address Organization Details Last Updated DateTime 4 157.48 cm 45.2 kg/m2 645432. 32 g 98.5 [degF] 84 /min 98 % 98 % 116 mm[Hg] 74 mm[Hg] Blaire Scruggs [employer] 4 16:11:29 Social History Question Answer Notes LastModified by Organizat ion Details LastModified Time Tobacco Smoking Status Former Smoker Quit 10 yrs ago Not Available [facility] 08/15/2022 15:13:02 Do You Have An Advance Directive? No [id number] Information not available 08/15/2022 What Is Your Level Of Alcohol Consumption? Heavy Beer Daily [id number] Information not available 08/15/2022 What Is Your Level Of Caffeine Consumption? Moderate [id number] Information not available 08/15/2022 How Much Tobacco Do You Chew? None [id number] Information not available 08/15/2022 What Type Of Diet Are You Following? REGULAR [id number] Information not available 08/15/2022 Which Illicit Or Recreational Drugs Have You Used? 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 01/05/2021 [id number] Information not available 08/15/2022 At What Age Did You Start Smoking Tobacco? 15 [id number].[id number] Information not available 08/15/2022 How Much Tobacco Do You Smoke? 2 PPD [id number] Information not available 08/15/2022 Do You Use Sunscreen Routinely? No [id number] Information not available 08/15/2022 Sex: Female Functional Status Question Answer Note LastModified by Organizat ion Details LastModified Time What is your exercise level? Occasional [id number] Information not available 08/15/2022 Mental Status None recorded. Family History Nothing Reported. Medical History No medical history recorded. Gynecological HistoryNo gynecological history recorded. Obstetrics History GPAL:G 0 P 0 0 0 0 Immunizations Vaccine Type Date Status Note Provider Nam e and Address Organization Details Recorded Time Influenza, split virus, quadrivalent, preservative 0 completed Not Available [facility] 08/15/2022 15:18:39 pneumococcal polysaccharide PPV23 0 completed Not Available [facility] 08/15/2022 15:18:40 Tdap 6 completed Not Available [facility] 08/15/2022 15:18:40 Past Encounters Encounter ID Performer Location Encounter Start Date Encounter Closed Date Diagnosis/Indication Diagnosis SNOMED-CT Code Diagnosis ICD10 Code Diagnosis Note [id number] [facility] Internal Med [facility] [address] [place] [address] 01/05/2021 00:00:00 01/05/2021 16:26:11 [id number] [facility] Internal Med [facility] [address] [facility] [place] [address] 06/06/2021 00:00:00 06/06/2021 16:42:15 [id number] [facility] Internal Med [address] [facility] [place] [address] 07/18/2021 00:00:00 07/18/2021 16:14:49 [id number] [facility] Internal Med [address] [facility] [place] [address] 04/03/2022 00:00:00 04/03/2022 16:08:23 [id number] Stephen Tejada MD [facility] Internal Med [address] [facility] [place] [address] 02/21/2023 14:00:54 02/21/2023 14:29:21 Essential hypertension 99450261 I10 under control Sleep apnea 77443574 G47 .30 cpap compliant Obesity 842925266 E66.9 advised to lose more Chronic ob structive pulmonary disease 81862759 J44.9 under control Chronic depression 71741 0009 F34.1 stable Anxiety 01324315 F41.9 stable Adult heal th examination 277704229 Z00.00 Colonoscop y- 2020 at [facility] - Had internal hemorrhoid Pap- seeing Gyne- Mammogram- gets from gyne Pneumovax- 01/15/2020 FLU- 02/2020 COVID- has not had Multiple n odules of lung [id number] R91.8 benign Ex-smoker [id number] Z87.89 1 needs LDCT wants to wait Allergic rhinitis 430340 04 J30.9 Long-term drug therapy [id number] Z79.586 [id number] Stephen Tejada MD [facility] Internal Med [address] [facility] [address] 10/29/2023 14:02:22 10/29/2023 15:04:44 Pain of left hip joint [id number] 27719 M25.552 Low back pain 548045205 M54.50 [id number] Stephen Tejada MD [facility] Internal Med [address] [facility] [address] 03/02/2024 15:59:46 03/02/2024 16:56:06 Essential hypertension 73280561 I10 under control Sleep apnea 17574579 G47 .30 cpap compliant Obesity 673749237 E66.9 advised to lose, watch diet Chronic ob structive pulmonary disease 26547206 J44.9 under control Chronic depression 05427 0009 F34.1 stable Anxiety 86423711 F41.9 stable Adult heal th examination 860996814 Z00.00 Colonoscop y- 2020 at [facility] - Had internal hemorrhoid Pap- seeing Gyne- Mammogram- gets from gyne Pneumovax- 01/15/2020 FLU- 02/2020 COVID- has not had Multiple n odules of lung 597800302 R91.8 benign Ex-smoker 5700738 Z87.89 1 LDCT gets from pulm Allergic rhinitis 541451 04 J30.9 Long-term drug therapy 665073932 Z79.899 Hernia of anterior abdominal wall 333479458 K43.9 seen surgery, needs surgery Health Concerns Section Related Observation LastModified by Organization Detai ls LastModified Time None Recorded Concern Status LastModified by Organization Details LastModified Time None Recorded Advance Directives Directive N: Payers Encounter Date Sequence Insurance Name Policy Number Policy Shelby Covered Member ID Shelby Member ID Guarantor Name 02/21/2023 1 [employer] [id number] Eli [id number] Eli Rey 10/29/2023 1 [employer] [id number] Eli Rey [id number] Eli Rey 03/02/2024 1 [employer] [id number] Eli Rey [id number] Eli Rey Notes Date Note Type Note Provider Name and Address Organization Details Recorded Time 02/21/2023 text/html she is her for h er routine follow up, needs refills She is scheduled for a hysterectomy 02/27/[address] Gibbons HTN- taking meds, under control,Meds- Lisinopril/ HCTZ 10 mg/12.5 mg daily Sleep apnea- sleep study 2015, on cpap, compliant, fatigue got better with cpap Depression/Anxiety- Mood and anxiety is under control,Meds- Venlafaxine 150 mg daily Obesity- watching diet. Has lost 19 lbs, getting meds from gyne ( Topiramate, phentermine ) COPD- PFT 09/05, was on symbicort, now on breztri seen Dr. Pino- Breztri 160 mg 2 puffs bid Ex smoker- smoked one and half ppd x 25 yrs, quit 2010 Lung nodules- gets LDCT from pul, no change Last LDCT 03/07/22 showed multiple nodules Rhinitis- Controlled with medsMeds- Flonase and Montelukast 10 mg daily EGD 09/03 showed Duodenitis, was on omeprazole, no more symptomsCovid pneumonia in 07/08, was hospitalized, was on o2 at home, no more Stephen Tejada MD [address], [address], [place], [address], [employer] 02/21/2023 14:29:03 10/29/2023 text/html She is here toda y for Lower back pain and bilateral hip pain. Comes and goes but this time has been going on for a couple months.was seeing a chiropractor who said her hips were coming out of alignment was seeing her all the time but stopped because it was not helping. Has been taking Ibuprofen and using Biofreeze. Biofreeze patch does help the lower back but nothing is helping her hips No radiation of the pain Dr. Gibbons ordered a CT of her Abd. back in APR 2023 Pt states that it said that her Hernia seemed a little bigger than before and had something abnormal with her heart. I do not see the report in her chart but will call their office and get it. Stephen Tejada MD [address], [address], [place], [address], [employer] 10/29/2023 15:02:29 03/02/2024 text/html she is her for h er routine follow up, needs refills HTN- taking meds, under control,Meds- Lisinopril/ HCTZ 10 mg/12.5 mg daily Sleep apnea- sleep study 2015, on cpap, compliant, fatigue better with cpap Depression/Anxiety- Mood and anxiety is under control,Meds- Venlafaxine 150 mg daily Obesity- watching diet. Had lost weight with meds from gyne ( Topiramate, phentermine ), now gaining it back COPD- PFT 09/05, was on symbicort, now on breztri seen Dr. Pino- Breztri 160 mg 2 puffs bid Ex smoker- smoked one and half ppd x 25 yrs, quit 2010 Lung nodules- gets LDCT from pul, no change, multiple nodules Rhinitis- Controlled with medsMeds- Flonase and Montelukast 10 mg daily EGD 09/03 showed Duodenitis, was on omeprazole, no more symptoms Osteoarthritis- back and hip, had shots from ortho, takes ibuprofen and helpsCovid pneumonia in 07/08, was hospitalized, was on o2 at home, no more Stephen Tejada MD [address] [facility] [facility] [address], [place], [address], [facility] [employer] 03/02/2024 16:55:30 OBGyn Episode No OBEpisode recorded.
--- OUTSIDE RECORDS SUMMARY | 2024-07-22 08:16 | XMS_ITS | Referral Summary ---
Author Organization [facility] [address] Address [address] [place] [address] Care Team Providers Care Shipping Supervisor Name Role Phone Stephen Tejada MD Primary Care Provider [phone]- [phone] Allergies No known active allergies Medications Breztri Aerosphere 160-9-4.8 mcg/actuation HFA aerosol inhaler TAKE 2 PUFFS BY MOUTH TWICE A DAY . RINSE MOUTH AND SPIT AFTER EACH USE 3 Active estradioL (ESTRACE) 2 mg tablet Take 2 mg by mouth daily 2 Active lisinopril-hydr oCHLOROthiazide (ZESTORETIC) 10-12.5 mg per tablet lisinopril 10 mg-hydrochloroth iazide 12.5 mg tablet TAKE 1 TABLET BY MOUTH EVERY DAY Active montelukast (SINGULAIR) 10 mg tablet montelukast 10 mg tablet TAKE 1 TABLET BY MOUTH EVERY DAY Active phentermine 15 mg capsule Take by mouth daily 3 Active progesterone (PROMETRIUM) 100 mg capsule Take 200 mg by mouth daily 2 Active topiramate (TOPAMAX) 50 mg tablet Take 50 mg by mouth 2 (two) times a day 3 Active venlafaxine XR (EFFEXOR-XR) 150 mg 24 hr capsule venlafaxine ER 150 mg capsule,extended release 24 hr TAKE 1 CAPSULE BY MOUTH EVERY DAY Active Active Problems Problem Noted Date Diagnosed Date Abnormal EKG 07/13/2022 Hypertension 07/13/2022 Chronic obstructive pulmonary disease 07/13/2022 Morbid obesity 07/13/2022 Social History Tobacco Use Types Packs/Day Years Used Date Smoking Tobacco: Former Cigarettes Q uit: 06/17/2011 Smokeless Tobacco: Never Tobacco Cessation:Counseling Given: Not Answered Personal Safety Answer Date Recorded Getting School Help Needed Not on file 08/17 Comments Unknown Sex and Gender Information Value Date Recorded Sex Assigned at Not on file Legal Sex Female 9:02 AM POULTRY PICKING MACHINE TENDER Gender Identity Not on file Sexual Orientation Not on file Last Filed Vital Signs Vital Sign Reading Time Taken Comments Blood Pressure 118/74 07/13/2022 3:24 PM POULTRY PICKING MACHINE TENDER Pulse 86 07/13/2022 3:24 PM POULTRY PICKING MACHINE TENDER Temperature - - Respiratory Rate - - Oxygen Saturation 98% 07/13/2022 3:24 PM POULTRY PICKING MACHINE TENDER Inhaled Oxygen Concentration - - Weight 105.2 kg (232 lb) 07/13/2022 3:24 PM POULTRY PICKING MACHINE TENDER Height 157.5 cm (5' 2 ) 07/13/2022 3:24 PM POULTRY PICKING MACHINE TENDER Body Mass Index 42.43 07/13/2022 3:24 PM POULTRY PICKING MACHINE TENDER Plan of Treatment Not on file Insurance [employer] SIG [id number] Care Teams Shipping Supervisor Relationship Specialty Start Date End Date Stephen Tejada MD PCP - General Internal Medicine 05/31/22
--- OUTSIDE RECORDS SUMMARY | 2024-07-22 08:17 | XMS_ITS | Clinical Summary ---
Author Organization [facility] [address] Address [address] [place] [address] Care Team Providers Care Documentation Engineer Name Role Phone Stephen Tejada MD Primary Care Provider [phone]- [phone] Allergies No known active allergies Medications Breztri [...] obstructive pulmonary disease 07/13/2022 Morbid obesity 07/13/2022 Surgical History Surgery Date Site/Laterality Comments SECTION TUBAL LIGATION CHOLECYSTECTOMY SINUS SURGERY Medical History Medical History Date Comments Hypertension Family History Medical History Relation Name Comments Heart disease Mother Relation Name Status Comments Mother Social History Tobacco Use Types Packs/Day Years Used Date Smoking Tobacco: Former Cigarettes Q uit: 06/17/2011 Smokeless Tobacco: Never Tobacco Cessation:Counseling Given: Not Answered Personal Safety Answer Date Recorded Getting School Help Needed Not on file 08/17 Comments Unknown Sex and Gender Information Value Date Recorded Sex Assigned at Not on file Legal Sex Female 9:02 AM SAMPLE FINISHER Gender Identity Not on file Sexual Orientation Not on file Obstetrics History Last Filed Vital Signs Vital Sign Reading Time Taken Comments Blood Pressure 118/74 07/13/2022 3:24 PM SAMPLE FINISHER Pulse 86 07/13/2022 3:24 PM SAMPLE FINISHER Temperature - - Respiratory Rate - - Oxygen Saturation 98% 07/13/2022 3:24 PM SAMPLE FINISHER Inhaled Oxygen Concentration - - Weight 105.2 kg (232 lb) 07/13/2022 3:24 PM SAMPLE FINISHER Height 157.5 cm (5' 2 ) 07/13/2022 3:24 PM SAMPLE FINISHER Body Mass Index 42.43 07/13/2022 3:24 PM SAMPLE FINISHER Plan of Treatment Health Maintenance Due Date Last Done Comments Breast Cancer Screening-Mammogram 1969 Cervical Cancer Screening 1969 Colon Cancer Screening-Colonoscopy 1969 Depression Screening 1969 Hepatitis C Screening 1969 Pneumococcal vaccine <65 (1 of 2 - PCV) 12/21/1975 DTaP/Tdap/Td Vaccine (1 - Tdap) 1980 Hepatitis B Screening 12/21/1987 Regular Well Visit/Exam 18-64 12/21/1987 Zoster Vaccine (1 of 2) 12/21/2019 Influenza Vaccine (#1) 2024 02/27/2020 Insurance [employer]ET[employer] SIG [id number] Care Teams Documentation Engineer Relationship Specialty Start Date End Date Stephen Tejada MD PCP - General Internal Medicine 05/31/22
[2024-07-22 09:12] LABS: Anion Gap 9 mmol/L (4-12); Blood Urea Nitrogen 15 mg/dL (7-17); Calcium 9.6 mg/dL (8.4-10.2); Carbon Dioxide 28 mmol/L (22-30); Chloride 101 mmol/L (98-107); Estimated Glomerular Filt Rate > 60; Glucose 98 mg/dL (65-110); Potassium 4.2 mmol/L (3.4-5.0); Sodium 138 mmol/L (137-145)
== END 2024-07-22 08:04 | disposition home or self-care (01) ==
PROVIDERS: Anesthesiology; PCP Internal Medicine; Visit Provider Surgery
DX: Z01.818 Encounter for other preprocedural examination (principal); R94.31 Abnormal electrocardiogram [ECG] [EKG]; K43.2 Incisional hernia without obstruction or gangrene; I10 Essential (primary) hypertension; Z79.899 Other long term (current) drug therapy
CPT/HCPCS: 36415; 80048; 86850; 86900; 86901; 93005

== ENCOUNTER 2024-07-28 00:47 | Day surgery (SDC) | payer OTHER, SELFPAY ==
[2024-07-15 14:59] VITALS: BMI 44.8
--- NOTE | 2024-07-15 15:38 | PC.NURSE ---
Report to the Outpatient Waiting Room, entrance under the green pavilion located off [facility], at time _0800 on date __07/28/24 . Planned Procedure Time: __1000 .? Time changes happen often and if your time is changed the preop area will call you the afternoon before. - You and your visitor will be asked to self-screen and do not enter if you have any COVID symptoms. Please call surgeon if you need to reschedule. - A mask is optional within the hospital at this time. Patients may have clear liquids (water, carbonated beverages, clear teas, apple juice) until 3 hours prior to surgery with a maximum of 20 ounces. - No food from midnight until time of surgery and no smoking. This includes no chewing gum, candy or mints. - Infants may have breast milk until 4 hours before surgery, infant formula 6 hours prior to surgery. - Children will be allowed to drink immediately following surgery.? If applicable, please bring a bottle or sippy cup to assist with drinking. Juice, water, soda, and popsicles are readily available.? For infants on formula, please bring formula the day of surgery.? Pacifiers are allowed. Take only the following medications with a SIP of water on the morning of surgery: __Venlafaxine and all Inhalers DO NOT STOP ANY OF YOUR OTHER PRESCRIPTION MEDICATIONS PRIOR TO SURGERY EXCEPT THE FOLLOWING Medications to discontinue per physician ___Vitamins and supplements 3 days prior Please no make-up, nail congolese, hairspray, perfume, deodorant, or body powder the day of surgery.? No jewelry (including any body piercings) or valuables the day of surgery, leave them at home.? Please take a shower or bath the night before, or the morning of, surgery with an antibacterial soap.? Wear comfortable, loose fitting clothing.? Children are encouraged to wear pajamas. - Jewelry must be removed prior to entering the operating room.? Rings and piercings that are not removed may be cut off. - The hospital will not accept responsibility for valuables.? - Please leave all valuables, including medications, at home the day of surgery. If you are going home after surgery, a licensed local delivery driver must drive you home.? - NO public transportation without another adult if you receive anesthesia. - We recommend that an adult stay with you for 24 hours following discharge. - We also recommend that you do not drive, make important decision, drink alcoholic beverages, or take any drugs that were not prescribed by your health care provider for at least 24 hours after your discharge time. For Pediatric surgeries, we recommend two adults accompany the child home. Hold all vitamins and supplements for 3 days per anesthesiologist. Follow any additional instructions given to you from your surgeon. Telephone instructions given to Natan and asked if any additional questions and then verbalized understanding. Patient advised to call surgeon office or pre surgery nurse liaison [phone] if any additional questions.
[2024-07-28] VITALS (25 sets, daily range): BP systolic 103–151; BP diastolic 60–114; PULSE 73–94; RESP 11–20; TEMP 36.5–36.6; O2SAT 92–100; BMI 45.4
--- OUTSIDE RECORDS SUMMARY | 2024-07-28 00:50 | XMS_ITS | Referral Summary ---
Author Organization [facility] [address] Address [address] [place] [address] Care Team Providers Care Drafter Engineering Name Role Phone Stephen Tejada MD Primary Care Provider [phone]- [phone] Allergies No known active allergies Medications Breztri [...] on file Legal Sex Female 9:02 AM RUG CLIPPER Gender Identity Not on file Sexual Orientation Not on file Last Filed Vital Signs Vital Sign Reading Time Taken Comments Blood Pressure 118/74 07/13/2022 3:24 PM RUG CLIPPER Pulse 86 07/13/2022 3:24 PM RUG CLIPPER Temperature - - Respiratory Rate - - Oxygen Saturation 98% 07/13/2022 3:24 PM RUG CLIPPER Inhaled Oxygen Concentration - - Weight 105.2 kg (232 lb) 07/13/2022 3:24 PM RUG CLIPPER Height 157.5 cm (5' 2 ) 07/13/2022 3:24 PM RUG CLIPPER Body Mass Index 42.43 07/13/2022 3:24 PM RUG CLIPPER Plan of Treatment Not on file Insurance AET[employer] SIG [id number] Care Teams Drafter Engineering Relationship Specialty Start Date End Date Stephen Tejada MD PCP - General Internal Medicine 05/31/22
--- OUTSIDE RECORDS SUMMARY | 2024-07-28 00:50 | XMS_ITS | Clinical Summary ---
Author Organization [facility] [address] Address [address] [place] [address] Care Team Providers Care Supervisor Travel Trailer Name Role Phone Stephen Tejada MD Primary Care Provider [phone]- [phone] Allergies No known active allergies Medications Breztri [...] on file Legal Sex Female 9:02 AM ADVENTURE THERAPIST Gender Identity Not on file Sexual Orientation Not on file Obstetrics History Last Filed Vital Signs Vital Sign Reading Time Taken Comments Blood Pressure 118/74 07/13/2022 3:24 PM ADVENTURE THERAPIST Pulse 86 07/13/2022 3:24 PM ADVENTURE THERAPIST Temperature - - Respiratory Rate - - Oxygen Saturation 98% 07/13/2022 3:24 PM ADVENTURE THERAPIST Inhaled Oxygen Concentration - - Weight 105.2 kg (232 lb) 07/13/2022 3:24 PM ADVENTURE THERAPIST Height 157.5 cm (5' 2 ) 07/13/2022 3:24 PM ADVENTURE THERAPIST Body Mass Index 42.43 07/13/2022 3:24 PM ADVENTURE THERAPIST Plan of Treatment Health Maintenance Due Date [...] Vaccine (#1) 2024 02/27/2020 Insurance AET[employer] SIG [id number] Care Teams Supervisor Travel Trailer Relationship Specialty Start Date End Date Stephen Tejada MD PCP - General Internal Medicine 05/31/22
--- OUTSIDE RECORDS SUMMARY | 2024-07-28 00:50 | XMS_ITS | Data Portability ---
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 Plan of Treatment Reminders Order Date Submit Date Provider Last Modified By Organization Details Last Modified Time Details Appointments Any 15 2024 03:00P M Stephane Tejada MD Not available Not available Not available Lab vitamin D, 25-hydrox y, total, serum [address] (Lab), [address] [place], [address], 02/28/2023 08:33:26 CMP, serum or plasma 2022 023 [facility] (Lab), [address] [place], [address], 02/23/2023 13:12:26 CBC w/ auto diff 2022 023 [facility] (Lab), [address] [place], [address], 02/23/2023 12:02:16 vitamin D, 25-hydrox y, total, serum [address] (Lab), [address] [place], [address], 03/31/2024 14:34:10 CMP, serum or plasma [address] (Lab), [address] [place], [address], 03/31/2024 14:34:10 CBC w/ auto diff [address] (Lab), [address] [place], [address], 03/31/2024 14:34:10 Referral None recorded. Procedures None recorded. Surgeries None recorded. Imaging XR, hip, unilatera l, 2 or 3 view 2023 024 [facility] (Imaging), [address] [place] [address], [address], 10/31/2023 17:47:16 XR, lumbar spine 2023 024 [facility] (Imaging), [address] [place] [address], [address], 11/01/2023 18:11:[address] 10 mg tablet 2022 023 [facility] [address] In [facility], [address] [place] [address], [address], 02/21/2023 14:27:38 fluticaso ne propionat e 50 mcg/actua tion nasal spray,valerie pension 2022 023 [facility] [address] In [facility], [address] [place] [address], [address], 02/21/2023 14:27:38 venlafaxi ne ER 150 mg capsule,e xtended release 24 hr 2022 023 [facility] [address] In [facility], [address] [place] [address], [address], 02/21/2023 14:27:38 lisinopri l 10 mg-hydroc hlorothia zide 12.5 mg tablet 2022 023 [facility] [address], [address], 02/21/2023 14:27:38 meloxicam 15 mg tablet 2023 024 [email or web address] [facility] [address], [address], 03/02/2024 16:51:16 cyclobenz aprine 10 mg tablet 2023 024 [email or web address] [facility] [address], [address], 03/02/2024 16:50:[address] 10 mg tablet 2023 024 [facility] [address], [address], 03/02/2024 16:52:10 venlafaxi ne ER 150 mg capsule,e xtended release 24 hr 2023 024 [facility] [address], [address], 03/02/2024 16:52:09 lisinopri l 10 mg-hydroc hlorothia zide 12.5 mg tablet 2023 024 [facility] [address], [address], 03/02/2024 16:52:10 Patient TargetsNo targets recorded. Patient InstructionsNo instructions recorded. Reason for Referral None Reported. Results Created Date Observation Date Name Description Value Unit Range Abnormal Flag Note LastModifiedBy Organization Detail LastModifiedTime 06/22/19 22 06/22/2021 XR, chest No observ ation record ed. [id number].[id number] [facility] [address] [facility] [address], [place], [address], 08/15/2022 15:18:47 06/29/19 22 06/29/2021 CT, chest , w/o contr ast No observ ation record ed. MIGRATION.[id number] [facility], [place], [address], 08/15/2022 15:18:47 07/02/19 22 07/02/2021 XR, chest , 2 view No observ ation record ed. MIGRATION. [id number] [facility], [place], [address], 08/15/2022 15:18:47 07/04/19 22 06/29/2021 XR, chest No observ ation record ed. MIGRATION. [id number] Not Available 08/15/2022 15:18:47 07/04/19 22 06/29/2021 CT, angio gram, chest , w/o contr ast No observ ation record ed. [id number] Not Available 08/15/2022 15:18:47 07/04/19 22 07/04/2021 XR, chest , 2 view No observ ation record ed. MIGRATION. [address] [facility], [place], [address], 08/15/2022 15:18:47 08/17/19 22 08/16/2021 XR, chest No observ ation record ed. MIGRATION. [address] [facility], [place], [address], 08/15/2022 15:18:47 08/17/19 22 08/16/2021 PFT, compl ete No observ ation record ed. [id number].[id number] [facility], [place], [address], 08/15/2022 15:18:47 03/07/20 22 03/07/2022 LDCT, chest , for lung cance r scree virgen No observ ation record ed. MIGRATION. [id number] [facility], [place], [address], 08/15/2022 15:18:47 04/30/20 22 04/30/2022 MAMMO , scree virgen, digit al, bilat eral No observ ation record ed. MIGRATION.[id number] [facility], [place], [address], 08/15/2022 15:18:47 08/23/19 23 08/21/2022 US, echoc ardio gram No observ ation record ed. BARCODE Not Available 2022 16:18:06 01/08/20 23 01/07/2023 XR, chest , 2 view No observ ation record ed. [address] [address], [place], [address], 01/08/2023 09:28:47 01/08/20 23 01/07/2023 CT, angio gram, chest + abdom en + pelvi s, w/ contr ast No observ ation record ed. [address] [address], [place], [address], 01/08/2023 09:28:47 10/29/19 24 04/25/2023 CT, abdom en + pelvi s, w/ contr ast No observ ation record ed. BARCODE Not Available 2023 18:32:57 10/31/19 24 10/29/2023 XR, hip, unila teral , 2 or 3 view No observ ation record ed. [email or web address] [place] [address] (Imaging) [address] [place] [address]e [facility], [place], [address], 11/05/2023 16:10:49 11/01/19 24 10/29/2023 XR, lumba r spine No observ ation record ed. [address] (Imaging) [address] [place] [address], [place], [address], 11/05/2023 15:58:29 12/05/19 24 12/03/2023 XR, chest , 2 view No observ ation record ed. BARCODE Not Available 2023 17:36:33 Result Notes None recorded. Problems Name Problem SNOMED Code Status Onset Date Resolution Date Notes Provider Name and Address Organization Details Recorded Time Chronic obstruct jeffrey pulmonar y disease 79491710 Active 2020 Not Available [facility] 3 15:15:12 Acute sinusiti s 57445446 Active 2022 Not Available [facility] 3 15:15:12 Transiti on of care 25232602070 05 Completed 202104/03/2022 Not Available [facility] 3 15:15:12 Chronic depressi on 090833758 Active Not Available [facility] 3 15:15:12 Pleurisy 006714153 Completed Not Available [facility] 3 15:15:12 Abdomina l pain 00618058 Completed Not Available [facility] 3 15:15:12 Dyspnea 776745085 Completed Not Available [facility] 3 15:15:12 Numbness of hand 288830923 Completed Not Available [facility] 3 15:15:12 Hypoxia 713416862 Active 2021 Not Available [facility] 3 15:15:13 Obesity 498388448 Active Not Available [facility] 3 15:15:13 Solitary nodule of lung 475086215 Active [address] 2019 Not Available [facility] 3 15:15:13 Multiple nodules of lung 156703248 Active 2021 Not Available [facility] 3 15:15:13 Contusio n of lower leg 77518637 Completed Not Available [facility] 3 15:15:13 Anxiety 10786654 Active Not Available [facility] 3 15:15:13 Upper respirat ory infectio n 57591826 Completed Not Available [facility] 3 15:15:13 Essentia l hyperten susana 36316031 Active Not Available [facility] 3 15:15:14 Allergic rhinitis 25319761 Active 2021 Not Available [facility] 3 15:15:14 Urinary tract infectio us disease 21339247 Completed Not Available [facility] 3 15:15:14 Duodenit is 08706423 Active 2020 Not Available [facility] 3 15:15:14 Sleep apnea 10595227 Active on cpap, sleep study 03/02 Not Available [facility] 3 15:15:14 Fatigue 11588969 Completed 202004/03/2022 Not Available [facility] 3 15:15:14 Fatigue 98162333 Completed Not Available [facility] 3 15:15:15 Pulmonar y emphysem a 61615028 Active 2017 Not Available [facility] 3 15:15:15 Pneumoni a caused by SARS-CoV -2 59720089524 2874329 Completed 202104/03/2022 Not Available [facility] 3 15:15:15 Pain of left hip joint 83885655927 9100 Active 2023 Stephane Tejada MD [address], [place], [address] , [facility] [employer] [facility] 4 14:59:38 Low back pain 545050128 Active 2023 Stephane Tejada MD [address], [place], [address] , [facility] 4 15:01:10 Hip pain 91969311 Active 2023 Sarah Ma MA null, [employer] [facility] 4 16:16:56 Hernia of anterior abdomina l wall 771975279 Active 2023 Stephane Tejada MD [address], [place], [address] , [facility] 4 16:54:58 Problem Notes None recorded. Procedures Surgical History Date Name Laterality Status Provider Name and Address Organization Details Recorded Time Sinus Surgery completed Not Available [facility] 08/15/2022 15:13:12 Carpal tunnel surgery completed Not Available [facility] 08/15/2022 15:13:12 section completed Not Available [facility] 08/15/2022 15:13:12 Tubal Ligation completed Not Available [facility] 08/15/2022 15:13:12 Imaging Results Imaging Date Name Status LastModified by Organization Details LastModified Time 06/22/2021 XR, chest completed [id number].[id number] [address] [facility], [place], [address], 08/15/2022 15:18:47 06/29/2021 XR, chest completed MIGRATION.[id number] 3 0026 Information not available 08/15/2022 15:18:47 06/29/2021 CT, angiogram, chest, w/o contrast completed MIGRATION.[id number] [id number] Information not available 08/15/2022 15:18:47 06/29/2021 CT, chest, w/o contrast completed MIGRATION.[id number] [address], [place], [address], 08/15/2022 15:18:47 07/02/2021 XR, chest, 2 view completed MIGRATION. [id number] [address] [facility], [place], [address], 08/15/2022 15:18:47 07/04/2021 XR, chest, 2 view completed MIGRATION. [id number] [address] [facility], [place], [address], 08/15/2022 15:18:47 08/16/2021 XR, chest completed MIGRATION.[id number], [place], [address], 08/15/2022 15:18:47 08/16/2021 PFT, complete completed MIGRATION.[id number] [address], [place], [address], 08/15/2022 15:18:47 03/07/2022 LDCT, chest, for lung cancer screening completed MIGRATION.[id number] [address] [address], [place], [address], 08/15/2022 15:18:47 04/30/2022 MAMMO, screening, digital, bilateral completed MIGRATION.[id number] [address] [address], [place], [address], 08/15/2022 15:18:47 08/21/2022 US, echocardiogram completed [facility] Inform ation not available 08/22/2022 16:18:06 01/07/2023 XR, chest, 2 view completed [address], [address], 01/08/2023 09:28:47 01/07/2023 CT, angiogram, chest + abdomen + pelvis, w/ contrast completed [address], [address], 01/08/2023 09:28:47 04/25/2023 CT, abdomen + pelvis, w/ contrast completed BAR[facility] Information not available 10/29/2023 18:32:57 10/29/2023 XR, hip, unilateral, 2 or 3 view completed [address] (Imaging) [address] [place] [address], [address], 11/05/2023 16:10:49 10/29/2023 XR, lumbar spine completed [address] (Imaging) [address] [place] [address], [address], 11/05/2023 15:58:29 12/03/2023 XR, chest, 2 view [...] TAKE 1 TABLET BY MOUTH EVERY DAY 2024 active Not Available Not Available Not Avai lable methylpredn isolone 4 mg tablets in a [...] propionate 50 mcg/actuati on nasal spray,suspe nsion [place] 2 sprays every day by intranasa l route. 2023 active Not Available Not Available Not Avai lable progesteron e micronized 100 mg capsule TAKE 2 CAPSULES BY MOUTH EVERY DAY 03/02 completed Not Available Not Available Not Available amoxicillin 875 mg-potosmanu m clavulanate 125 mg tablet Take 1 [...] % 98 % 107 /min 95 /min 737790. 13 g 554379. 76 g 130 mm[Hg] 80 mm[Hg] 124 mm[Hg] 80 mm[Hg] Not Available [facility] 3 15:13:54 Date Recorded Body height Body mass index (BMI) Body weight Body temperature Heart rate Oxygen saturation Oxygen saturation in Arterial blood by Pulse oximetry Systolic blood pressure Diastolic blood pressure Provider Name and Address Organization Details Last Updated DateTime 3 157.48 cm 40.6 kg/m2 823360. 51 g 97.1 [degF] 98 /min 97 % 97 % 112 mm[Hg] 74 mm[Hg] Leanne sheets Lemuel [employer] 3 14:06:17 Date Recorded Body height Body mass index (BMI) Body weight Body temperature Heart rate Oxygen saturation Oxygen saturation in Arterial blood by Pulse oximetry Systolic blood pressure Diastolic blood pressure Provider Name and Address Organization Details Last Updated DateTime 4 157.48 cm 43.7 kg/m2 533774. 94 g 98.1 [degF] 102 /min 98 % 98 % 120 mm[Hg] 80 mm[Hg] Bernice García [facility] 4 14:12:37 Date Recorded Body height Body mass index (BMI) Body weight Body temperature Heart rate Oxygen saturation Oxygen saturation in Arterial blood by Pulse oximetry Systolic blood pressure Diastolic blood pressure Provider Name and Address Organization Details Last Updated DateTime 4 157.48 cm 45.2 kg/m2 907450. 32 g 98.5 [degF] 84 /min 98 % 98 % 116 mm[Hg] 74 mm[Hg] Blaire Scruggs [employer] 4 16:11:29 Social History Question Answer Notes LastModified by Organizat ion Details LastModified Time Tobacco Smoking Status Former Smoker Quit 10 yrs ago Not Available [facility] 08/15/2022 15:13:02 Do You Have An Advance Directive? No [id number] Information not available 08/15/2022 What Is Your Level Of Alcohol Consumption? Heavy Beer Daily [id number].[id number] Information not available 08/15/2022 What Is Your Level Of Caffeine Consumption? Moderate [id number].[id number] Information not available 08/15/2022 How Much Tobacco Do You Chew? None MIGRATION.[id number] Information not available 08/15/2022 What Type Of Diet Are You Following? REGULAR [id number].[id number] Information not available 08/15/2022 Which Illicit Or Recreational Drugs Have You Used? 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 01/05/2021 [id number] Information not available 08/15/2022 At What Age Did You Start Smoking Tobacco? 15 MIGRATION.[id number] 9823 Information not available 08/15/2022 How Much Tobacco Do You Smoke? 2 PPD MIGRATION.527674 2344 Information not available 08/15/2022 Do You Use Sunscreen Routinely? No [id number] Information not available 08/15/2022 Sex: Female Functional Status Question Answer Note LastModified by Organizat ion Details LastModified Time What is your exercise level? Occasional [id number] Information not available 08/15/2022 Mental Status None recorded. Family History Nothing Reported. Medical History No medical history recorded. Gynecological HistoryNo gynecological history recorded. Obstetrics History GPAL:G 0 P 0 0 0 0 Immunizations Vaccine Type Date Status Note Provider Nam e and Address Organization Details Recorded Time Influenza, split virus, quadrivalent, preservative 0 completed Not Available [facility] 08/15/2022 15:18:39 pneumococcal polysaccharide PPV23 0 completed Not Available [facility] 08/15/2022 15:18:40 Tdap 6 completed Not Available [facility] 08/15/2022 15:18:40 Past Encounters Encounter ID Performer Location Encounter Start Date Encounter Closed Date Diagnosis/Indication Diagnosis SNOMED-CT Code Diagnosis ICD10 Code Diagnosis Note [id number] [facility] Internal Med [address] [facility] [place] [address] 01/05/2021 00:00:00 01/05/2021 16:26:11 [id number] [facility] Internal Med [facility] [address] [facility] [place] [address] 06/06/2021 00:00:00 06/06/2021 16:42:15 [id number] [facility] Internal Med [facility] [address] [facility] [place] [address] 07/18/2021 00:00:00 07/18/2021 16:14:49 [id number] [facility] Internal Med [facility] [address] [facility] [place] [address] 04/03/2022 00:00:00 04/03/2022 16:08:23 [id number] MD GAGE [facility] Internal Med [id number] [facility] [place] [address] 02/21/2023 14:00:54 02/21/2023 14:29:21 Essential hypertension 21043818 I10 under control Sleep apnea 66342217 G47 .30 cpap compliant Obesity 363657690 E66.9 advised to lose more Chronic ob structive pulmonary disease 81281997 J44.9 under control Chronic depression 70059 0009 F34.1 stable Anxiety 09226293 F41.9 stable Adult heal th examination 465926150 Z00.00 Colonoscop y- 2020 at [facility] - Had internal hemorrhoid Pap- seeing Gyne- Mammogram- gets from gyne Pneumovax- 01/15/2020 FLU- 02/2020 COVID- has not had Multiple n odules of lung 029219313 R91.8 benign Ex-smoker 7827227 Z87.89 1 needs LDCT wants to wait Allergic rhinitis 876623 04 J30.9 Long-term drug therapy 958666728 Z79.229 [id number] MD [facility] [address] [place] [address] 10/29/2023 14:02:22 10/29/2023 15:04:44 Pain of left hip joint 7366982269 73820 M25.552 Low back pain 957251359 M54.50 [id number] MD GAGE [facility] Internal Med [address] [place] [address] 03/02/2024 15:59:46 03/02/2024 16:56:06 Essential hypertension 49797493 I10 under control Sleep apnea 17393772 G47 .30 cpap compliant Obesity 889776989 E66.9 advised to lose, watch diet Chronic ob structive pulmonary disease 93619012 J44.9 under control Chronic depression [address]39[address] 0009 F34.1 stable Anxiety 30883502 F41.9 stable Adult heal th examination 454775313 Z00.00 Colonoscop y- 2020 at [facility] - Had internal hemorrhoid Pap- seeing Gyne- Mammogram- gets from gyne Pneumovax- 01/15/2020 FLU- 02/2020 COVID- has not had Multiple n odules of lung 701826265 R91.8 benign Ex-smoker 8430895 Z87.89 1 LDCT gets from pulm Allergic rhinitis 796736 04 J30.9 Long-term drug therapy 417563386 Z79.899 Hernia of anterior abdominal wall 600756391 K43.9 seen surgery, needs surgery Health Concerns Section Related Observation LastModified by Organization Detai ls LastModified Time None Recorded Concern Status LastModified by Organization Details LastModified Time None Recorded Advance Directives Directive N: Payers Encounter Date Sequence Insurance Name Policy Number Policy Shelby Covered Member ID Shelby Member ID Guarantor Name 02/21/2023 1 [employer] [id number] Eli Rey [id number] Eli Rey 10/29/2023 1 [employer] [id number] Eli [id number] Eli Rey 03/02/2024 1 [employer] [id number] Eli Rey [id number] Eli Rey Notes Date Note Type Note Provider Name and Address Organization Details Recorded Time 02/21/2023 text/html she is her for h er routine follow up, needs refills She is scheduled for a hysterectomy 02/27/[address] Gibbons HTN- taking meds, under control,Meds- Lisinopril/ HCTZ 10 mg/12.5 mg daily Sleep apnea- sleep study 2016, on cpap, compliant, fatigue got better with [...] was on o2 at home, no more Stephane Tejada MD [address], [place], [address], [facility] 02/21/2023 14:29:03 10/29/2023 text/html She is here [...] will call their office and get it. Stephane Tejada MD [address], [place], [address], [facility] 10/29/2023 15:02:29 03/02/2024 text/html she is her for h er routine follow up, needs refills HTN- taking meds, under control,Meds- Lisinopril/ HCTZ 10 mg/12.5 mg daily Sleep apnea- sleep study 2016, on cpap, compliant, fatigue better with cpap [...] was on o2 at home, no more Stephane Tejada MD [address] [facility], [facility] [address], [place], [address], [place] [facility] 03/02/2024 16:55:30 OBGyn Episode No OBEpisode recorded.
--- OUTSIDE RECORDS SUMMARY | 2024-07-28 00:50 | XMS_ITS | Clinical Summary ---
Author Organization [facility] Address [facility] [place] [address] Care Team Providers Care Health Actuary Name Role Phone Unavailable Primary Care Provider [...]
--- OUTSIDE RECORDS SUMMARY | 2024-07-28 00:50 | XMS_ITS | Data Portability ---
Author Organization [facility] [place] Address [address] [place] [address] [place] [address] Care Team Providers Care Yarn Sorter Name Role Phone JOVANA SHUKLAINDER Primary Care Provider Assessment No assessment recorded. Plan of Treatment Reminders Order Date Submit Date Provider Last Modified By Organization Details Last Modified Time Details Appointments None recorded. Lab urinalysis, dipstick 2022 0[email or web address], [address], [place], [address], 10:41:52 urinalysis, dipstick 2022 023 [email or web address] [place], [address], [place], [address], 17:04:03 urinalysis, dipstick 2022 [email or web address], [address], [place], [address], 17:49:03 Referral None recorded. Procedures None recorded. Surgeries None recorded. Imaging None recorded. Medication Orders phentermine 30 mg capsule 2022 023 [facility] [id number] In [facility], [facility] [place], [address], 3 11:05:28 estradiol 1 mg tablet 2022 023 [email or web address] [facility] [address] In [facility], [address] [place], [address], 3 11:08:45 Patient TargetsNo targets recorded. Patient InstructionsNo instructions recorded. Reason for Referral None Reported. Results Created Date Observation Date Name Description Value Unit Range Abnormal Flag Note LastModifiedBy Organization Detail LastModifiedTime 03/07/20 23 03/07/2023 urina lysis , dipst ick Leukocytes TRACE Not Available [facility] [place] [address], [place], [address], 03/07/2023 10:40:42 03/07/20 23 03/07/2023 urina lysis , dipst ick Nitrite NEGATI VE Not Available [place] [address], [place], [address], 03/07/2023 10:40:42 03/07/20 23 03/07/2023 urina lysis , dipst ick Protein NEGATI VE Not Available [place] [address], [place], [address], 03/07/2023 10:40:42 03/07/20 23 03/07/2023 urina lysis , dipst ick Specific [place] 1.005 [facility] Available [facility] [address], [place], [address], 03/07/2023 10:40:42 03/07/20 23 03/07/2023 urina lysis , dipst ick Glucose NORMAL Not Available [place] [address], [place], [address], 03/07/2023 10:40:42 04/01/20 23 04/01/2023 CULTU RE: URINE result report SEE RESULT S BELOW Test: Cultu re: Urine Speci men Sourc e: Urine Voide d Speci men Type: Urine Speci men Date: 04/01 4:34 PM Resul t Date: 04/03 11:14 AM Resul t Statu s: Final resul t Abnor mal: No Resul neryg Lab: [facility] [address] [facility] [address] Tel: CULTU RE ----- ----- ----- --- Cultu re resul t (>=3 organ isms prese nt) indic ates possi ble conta minat ion. Repea t cultu re if sympt oms indic ate. Not Available [facility] (Lab) [address], [place], [address], 04/03/2023 12:17:56 04/01/2004/01/2023 urina lysis , dipst ick Leukocytes +1 Not Available [facility] [place] [address], [place], [address], 04/01/2023 17:02:56 04/01/2004/01/2023 urina lysis , dipst ick Nitrite negati ve Not Available [place] [address], [place], [address], 04/01/2023 17:02:56 04/01/2004/01/2023 urina lysis , dipst ick Protein trace Not Available [place] [address], [place], [address], 04/01/2023 17:02:56 04/01/2004/01/2023 urina lysis , dipst ick pH 6 Not Available [place] [address], [place], [address], 04/01/2023 17:02:56 04/01/2004/01/2023 urina lysis , dipst ick Blood +++ Not Available [place] [address], [place], [address], 04/01/2023 17:02:56 04/01/20 23 04/01/2023 urina lysis , dipst ick Specific [place] 1.015 [facility] Available [facility] [address], [place], [address], 04/01/2023 17:02:56 04/01/20 23 04/01/2023 urina lysis , dipst ick Glucose normal Not Available [place] [address], [place], [address], 04/01/2023 17:02:56 04/24/20 23 04/24/2023 CULTU RE: URINE result report SEE RESULT S BELOW Test: Cultu re: Urine Speci men Sourc e: Urine Voide d Speci men Type: Urine Speci men Date: 2022 5:20 PM Resul t Date: 2022 7:33 PM Resul t Statu s: Final resul t Abnor mal: No Resul ting Lab: [facility] [address] [facility] [address] Tel: CULTU RE ----- ----- ----- --- No growt h in 1 day (dete ction level of 10,00 0 colon ies / ml.) Not Available [facility] (Lab) [address] [facility], [place], [address], 04/25/2023 20:36:01 04/24/2004/24/2023 urina lysis , dipst ick Leukocytes trace Not Available [facility] [address], [place], [address], 04/24/2023 17:48:02 04/24/20 23 04/24/2023 urina lysis , dipst ick Nitrite negati ve Not Available [place] [address], [place], [address], 04/24/2023 17:48:02 04/24/20 23 04/24/2023 urina lysis , dipst ick Protein negati ve Not Available [place] [address], [place], [address], 04/24/2023 17:48:02 04/24/20 23 04/24/2023 urina lysis , dipst ick pH 6 Not Available [place] [address], [place], [address], 04/24/2023 17:48:02 04/24/20 23 04/24/2023 urina lysis , dipst ick Specific [place] 1.010 Not Available [facility] [address], [place], [address], 04/24/2023 17:48:02 04/24/20 23 04/24/2023 urina lysis , dipst ick Ketone +1 Not Available [place] [address], [place], [address], 04/24/2023 17:48:02 04/24/20 23 04/24/2023 urina lysis , dipst ick Glucose normal Not Available [place] [address], [place], [address], 04/24/2023 17:48:02 04/25/20 23 04/25/2023 CT, abdom en + pelvi s, w/ contr ast No observ ation record ed. [address], [place], [address], 04/29/2023 10:58:19 Result Notes None recorded. Procedures Surgical History Date Name Laterality Status Provider Name and Address Organization Details Recorded Time 023 ROBOTIC ASSISTED HYSTERECTOMY W/BILATERAL SALPINGO-OOPHORECT ANALILIA (SURG) completed Iman Manzano [facility] 02/28/2023 09:58:14 023 Endometrial Biopsy completed Peter Gibbons MD [address], [place], [address], [facility] 07/30/2022 17:40:35 023 Date of Last Mammogram completed [facility] 02/25/2023 09:43:35 023 completed [facility] 02/25/2023 09:43:35 022 Date of Last Pap Smear completed [facility] 08/04/2022 10:10:06 022 completed Venessa Starr [facility] 04/24/2022 10:13:34 013 Cholecystectomy completed Peter Gibbons MD [address], [place], [address], [facility] 09/25/2022 12:38:08 998 Caesarean Section completed [facility] 11/06/2022 11:00:30 992 Caesarean Section completed [facility] 11/06/2022 11:00:29 Laparoscopy completed [facility] 04/12/2022 09:56:02 Tubal Ligation completed [facility] 04/12/2022 09:56:02 Colonoscopy completed [facility] 04/12/2022 09:56:02 Caesarean Section completed [facility] 04/12/2022 09:56:03 Endometrial Ablation completed [facility] 01/24/2023 16:20:13 Cholecystectomy completed [facility] 04/25/2023 10:49:59 Imaging Results Imaging Date Name Status LastModified by Organiz ation Details LastModified Time 04/25/2023 CT, abdomen + pelvis, w/ contrast completed [address], [place], [address], 04/29/2023 10:58:19 Procedure Notes None recorded. Medical [...] Updated DateTime 02/25/2023 157.48 cm 41.2 kg/m2 119625.2 8 g 127 mm[Hg] 84 mm[Hg] [facility] 3 09:43:17 Date Recorded Body height Body mass index (BMI) Body weight Systolic blood pressure Diastolic blood pressure Provider Name and Address Organization Details Last Updated DateTime 03/07/2023 157.48 cm 40.8 kg/m2 951441.1 g 137 mm[Hg] 80 mm[Hg] [facility] 3 10:29:12 Date Recorded Body height Body mass index (BMI) Body weight Systolic blood pressure Diastolic blood pressure Provider Name and Address Organization Details Last Updated DateTime 04/01/2023 157.48 cm 40.8 kg/m2 145475.1 g 131 mm[Hg] 87 mm[Hg] [facility] 3 16:52:32 Date Recorded Body height Provider Name an d Address Organization Details Last Updated DateTime 04/24/2023 157.48 cm [facility] 04/24/2023 17:40:54 Social History Question Answer Notes LastModified by Organizat ion Details LastModified Time Tobacco Smoking Status Former Smoker Paulina Ojeda [facility] 04/01/2023 16:47:03 Do You Have An [...] Or The Highest Degree You Have Received? 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 [id number] Information not available 04/12/2022 Do You Use [...] have difficulty walking or climbing stairs? No Information not available 04/01/2023 Are you able to walk? YESWOREST Information not available 04/12/2022 Are you able to care for yourself? Yes [email or web address] Information not available 04/01/2023 Do you have difficulty dressing or bathing? No [email or web address] Information not available 04/01/2023 What is your [...] SNOMED-CT Code Diagnosis ICD10 Code Diagnosis Note [id number] HARDEEP Juarez [place] [address],[facility] [place] [address] 04/12/2022 09:24:40 04/12/2022 10:38:19 Pain in pelvis 09497110 R10.2 Today we agreed to update TVUS and pap smearShe will RTC for pelvic u/s f/u with MD consult given her hx of chronic pelvic pain and endometrio sisPatient agrees to this planED precaution s discussed History of endometriosis 8220315908 3989798 Z87.42 Dyspareunia 68007322 N94 .10 Encouraged crisco twice daily to vulva, use this as lubricatio n with intercours e. May need to consider vaginal estrogen. Time spent in visit is a total of 35 mins with at least 50% of visit consisting of counseling and review of plan of care. [id number] Beverly Root [place] [address],[place] [address] 04/18/2022 16:37:42 04/18/2022 17:53:47 Pain in pelvis 02641654 R10.2 N94.10 [id number] Peter Gibbons MD [place] [address],[place] [address] 04/24/2022 10:11:08 04/24/2022 10:50:43 Menopausal symptom 26527695 N95.1 Pain in pelvis 46394886 R10.2 N94.10 This patient is a 51-year-ol [...] /menopausa l/perimeno pausal woman with pelvic pain. [id number] Zulema aButistaHARDEEP [place] [address] [address] 05/25/2022 09:38:46 05/25/2022 14:46:49 Obesity 935542878 E66.9 51yo Presents for initial weight management [...] training sessions per week.Healt hy eating discussed, superior court judge appointmen t scheduledL abs ordered, EKG orderedWei ght loss medication options discussed, will review labs and decide on medication options as next visit Time spent in visit is a total of 45 mins with at least 50% of visit consisting of counseling and review of plan of care. [id number] Peter Gibbons MD [place] [address] [address] 06/02/2022 11:05:04 06/04/2022 14:48:23 Obesity 488578404 E66.9 this patient is a 51-year-ol d [...] pending. She will follow-up in 2 weeks. [id number] Zulema GracielashalondaHARDEEP [place] [address],[place] [address] 07/18/2022 16:51:14 07/18/2022 18:20:55 Postmenopausal bleeding 04543791 N95.0 Today we discussed postmenopa usal bleeding [...] plan of care. Venereal d isease screening 228402794 Z11.3 [id number] Jerica Carroll [place] [address],[place] [address] 07/19/2022 17:21:36 07/20/2022 12:11:14 Abnormal uterine bleeding 2577594264 9100 N93.9 [id number] Peter Gibbons MD [place] [address],[place] [address] 07/30/2022 16:22:13 07/30/2022 17:44:45 Postmenopausal bleeding 06402535 N95.0 endometria l biopsy was intensely painful, it was completed without complicati ons. To follow-up on biopsy results [id number] Peter Gibbons MD [place] [address],[place] [address] 08/04/2022 09:41:42 08/04/2022 11:13:33 Abnormal uterine bleeding 8399019230 9100 N93.9 Obesity 042748478 E66.9 this patient is a 51-year-ol d female presents for follow-up on weight management . We spent 20 minutes face-to-fa ce. More than 50% was counseling . We talked about medical weight management . We talked in detail about risks, benefits, and efficacy of the various medication s. we talked about her activity level. She is exercising doing resistance training. 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 She has not lost any weight. [...] increased her progestero ne to 200 mg [id number] Peter Gibbons MD [place] [address] [place] [address] 08/20/2022 15:36:22 08/20/2022 20:52:51 [id number] Peter Gibbons MD [place] [address] [place] [address] 09/25/2022 11:10:42 09/25/2022 13:05:48 Obesity 147345529 E66.9 this patient is a 51-year-ol d [...] face-to-fa ce. More 50% was counseling . [id number] Peter Gibbons MD [place] [address] [place] [address] 11/06/2022 10:30:20 11/06/2022 11:54:30 Obesity 018226103 E66.9 this patient is a 51-year-ol d [...] she is going to do well here. [id number] Peter Gibbons MD [place] [address],[place] [address] 12/24/2022 17:00:59 12/25/2022 10:26:09 Postmenopausal bleeding 17947074 N95.0 this patient is a 52-year-ol d [...] estradiol a and 5 mg norethindr one. [id number] Peter Gibbons MD [place] [address],[place] [address] 01/05/2023 10:37:11 01/07/2023 14:16:33 Obesity 629105651 E66.9 This patient is a 52 year [...] ce pain with 50% was counseling . [id number] Peter Gibbons MD [place] [address],[place] [address] 01/24/2023 15:59:56 01/24/2023 17:07:51 Abnormal uterine bleeding 3998112469 9100 N93.9 This female is a 52-year-ol [...] made a decision to perform surgery today. [id number] Peter Gibbons MD [place] [address],[place] [address] 02/25/2023 09:38:34 02/26/2023 11:00:08 Abnormal uterine bleeding 2677377293 9100 N93.9 this patient is a 52-year-ol d female with abnormal uterine bleeding. We agreed to perform robotic assisted hysterecto my with bilateral salpingo-o ophorectom y. She understand s the risks, benefits, and alternativ es. She has completed the informed consent process and is ready to proceed. [id number] Radha Gonzalez [place] [address],[place] [address] 03/01/2023 10:12:41 03/01/2023 10:14:09 [id number] Peter Gibbons MD [place] [address],[place] [address] 03/07/2023 10:22:11 03/07/2023 11:13:38 Urinary symptoms 723205119 R39.9 Postmenopa usal bleeding 73951975 N95.0 \ Obesity 435863525 E66.9 Postoperative care 98227 9007 Z48.89 52-year-ol d female presents for postop follow-up. She is 1 week postop normally hysterecto my, minimally invasive. She has no complaints . She is doing well. Incisions are clean dry and intact. She is eager to return to work. No complaints , problems. Follow-up as needed [id number] Peter Gibbons MD [place] [address] [address] 04/01/2023 16:46:36 04/02/2023 08:49:42 Pain in pelvis 45369262 R10.2 N94.10 49-year-ol d female with postop [...] there were no postoperat jeffrey complicati ons. [id number] Peter Gibbons MD [place] [address] [address] 04/24/2023 17:06:18 04/24/2023 18:10:20 Urinary symptoms 552916185 R39.9 Health Concerns Section Related Observation LastModified by Organization Detai ls LastModified Time None Recorded Concern Status LastModified by Organization Details LastModified Time None Recorded Advance Directives Directive N: Payers Encounter Date Sequence Insurance Name Policy Number Policy Shelby Covered Member ID Shelby Member ID Guarantor Name 02/25/2023 1 [employer] [id number] Dharmesh Rey [id number] Eli Rey 02/27/2023 1 [employer] [id number] Dharmesh Rey [id number] Eli Rey 03/07/2023 1 [employer] [id number] Dharmesh Rey [id number] Eli Rey 04/01/2023 1 [employer] [id number] Barroso Krissy [id number] Eli Rey 04/24/2023 1 [employer] [id number] Dharmesh Rey [id number] Eli Rey Notes Date Note Type Note [...] infection. Peter Gibbons MD [address], [place], [address], [facility] 02/25/2023 18:17:55 03/07/2023 text/html 52-year-old vanessa bello presents for postop follow-up. She is 1 week postop normally hysterectomy, minimally invasive. She has no complaints. She is doing well. Incisions are clean dry and intact. She is eager to return to work. No complaints, problems. Follow-up as needed Peter Gibbons MD [address], [place], [address], [facility] 03/07/2023 11:13:21 04/01/2023 text/html 49-year-old vanessa [...] complications. Peter Gibbons MD [address], [place], [address], [facility] 04/01/2023 21:04:03 OBGyn Episode Ob Episode Information Episode Created Date Number of Fetuses Patient Bloodtype Patient rh Status Prepregnancy Weight lbs Domestic Partner Domestic Partner Phone Father Name [employer] Supervisor Status 04/12/20 22 1 CLOSED Fetus Data First Name Last Name Admitted to NICU Weight (g) Sex Living Outcome Pediatric Complications Fetus ID Race Codes Race Delivery Type 3798.83 3 F Full Term [id number] Primary Tramaine Calculation Initial Tramaine Date Initial [...] Domestic Partner Domestic Partner Phone Father Name [employer] Supervisor Status 04/12/20 22 1 CLOSED Fetus Data First Name Last Name Admitted to NICU Weight (g) Sex Living Outcome Pediatric Complications Fetus ID Race Codes Race Delivery Type F Full Term [id number] Repeat Tramaine Calculation Initial Tramaine Date Initial [...]
[2024-07-28] MEDS: KETOROLAC 15 MG/ML VIAL (*BKC) IV PUSH ×2 (08:35→12:18)
[2024-07-28] MEDS: ACETAMINOPHEN 500 MG TABLET 1000 MG PO (08:35)
--- NOTE | 2024-07-28 09:21 | P.HP_ITS ---
H&P: HPI History of Present Illness Date/Time: 07/28/24 09:21 Chief Complaint: Incisional hernia Narrative: This is a 53-year-old woman who presents for incisional hernia repair. She has a large upper abdominal incisional hernia from a prior laparoscopic procedure. She denies any significant changes since last seen in the office. Review of Systems Review of Systems: All systems reviewed & are unremarkable except as noted in HPI and below Constitutional: Constitutional: Denies chills, Denies fever(s), Denies headache(s) and Denies weight loss Eyes: Eyes: Denies change in vision ENT: Denies dizziness, Denies headache(s), Denies neck mass and Denies throat swelling Cardiovascular: Cardiovascular: Denies chest pain, Denies lightheadedness and Denies dyspnea Respiratory: Respiratory: Denies cough, Denies dyspnea and Denies wheezing Gastrointestinal: Gastrointestinal: Denies abdominal pain, Denies change in bowel habits, Denies nausea and Denies vomiting Genitourinary: Genitourinary: Denies hematuria and Denies dysuria Musculoskeletal: Musculoskeletal: Reports as per HPI Integumentary/Breasts: Skin/Breast: Reports as per HPI Neurologic: Denies dizziness and Denies headache(s) Allergic/Immunologic: Allergic/Immunologic: Denies throat swelling and Denies wheezing [facility] Past Medical History Medical History Hyperlipidemia Emphysema (subcutaneous) (surgical) resulting from a procedure Diastolic dysfunction Echocardiogram 2018 demonstrated diastolic dysfunction with elevated left heart pressures EF 55-60% Normal nuclear stress test (08/2020) Eczema Rosacea Anxiety Hypertension Chronic obstructive pulmonary disease PFTs 06/27/2020: Mild obstructive abnormality without significant improvement with bronchodilators. Study without significant change compared to 2018. Former smoker Nodule of right lung With stable CT scan January 2021. Exam consistent with granulomatous disease KAREN (obstructive sleep apnea) CPAP of 11 Surgical History Surgical History History of hysterectomy 2022 Dr. Gibbons History of tonsillectomy and adenoidectomy History of sinus surgery History of laparoscopic cholecystectomy (2014) History of tubal ligation Family History Family History Sibling Depression Patient's brother is in good health Patient's sister is in good health Mother , Age 52 Acute myocardial infarction Hypertension Emphysema of lung Father , Age 30s Trauma Other Family history of gastrointestinal disorder Social History Social History Social History: She reports that she and her have been together for over 30 years but have only been for about 13 years. They have 2 daughters who are healthy. She used to smoke 1.5 packs of cigarettes per day. She reports that she drinks 6 beers twice a week. She denies any illicit substance use. 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 Primary care physician: Dr. Teajda Code status: Full code Surrogate decision maker: Smoking packs per day: 1 Smoking cigarettes per day: 20.0 Years smoked: 25 Smoking pack-years: 25.00 Smoking status: Former smoker Tobacco type: cigarettes Second hand tobacco smoke exposure: Yes Smoking end date: 06/17/11 Alcohol intake: current Drinks per week: 12 Alcohol use details: weekend drinker socially Substance use: never Substance use type: does not use Do You Feel Safe in your Home?: Yes Lack of Transportation: No Lack of Food: Never True Current Housing: I Have Housing Concerned About Future Housing: No Difficulty Paying Gas/Electric Bills: No Difficulty Paying for Meds: No Currently Unemployed: No Education: High School Diploma/GED Living arrangements: with family Occupation/Education: occupation 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/education 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 Gender identity (if verbalized by the patient): Female Spiritual care concerns: No Meds Home Medications and Allergies Home Medications ?Medication ?Instructions ?Recorded ?Confirmed ?Type lisinopril 10 1 tablet PO DAILY 07/15/19 07/28/24 History mg-hydrochlorothiazide 12.5 mg tablet venlafaxine 150 mg 150 mg PO DAILY 07/15/19 07/28/24 History capsule,extended release 24 hr montelukast 10 mg tablet 10 mg PO DAILY 07/16/19 07/28/24 History (Singulair) budesonide 160 mcg-glycopyr 9 2 inh inhalation BID #10.7 grams 03/13/23 07/28/24 Rx mcg-formot 4.8 mcg/actuation HFA inhaler (Breztri Aerosphere) albuterol sulfate 2.5 mg/3 mL 2.5 mg (3 mL) inhalation Q4-6H PRN 12/03/23 07/15/24 Rx (0.083 %) solution for nebulization shortness of breath or wheezing #90 mL albuterol sulfate 90 mcg/actuation 1 - 2 puff inhalation Q4-6H PRN 12/13/23 07/15/24 Rx aerosol inhaler shortness of breath or wheezing #8.5 grams [place] 3 1 cap PO DAILY 07/15/24 07/28/24 History cyanocobalamin (vitamin B-12) 1 tablet PO DAILY 07/15/24 07/28/24 History progesterone micronized 1 cap PO DAILY 07/15/24 07/28/24 History Allergies Allergy/AdvReac Type Severity Reaction Status Date / Time No Known Allergies Allergy Verified 07/15/24 15:44 Vital Signs Vital Signs - 24 hr 07/28/24 08:41 Temperature 97.7 F Pulse Rate 76 Respiratory Rate 16 Blood Pressure 139/89 Pulse Oximetry 99 Oxygen Delivery Room Air Exam Const: General: no acute distress and alert Orientation/consciousness: patient oriented x3 HENMT: Head: normocephalic and atraumatic Ears: hearing grossly normal bilaterally Face/Nose/Sinus: Normal nares present Mouth: Yes Normal oral and palatal mucosa present Eyes: Periorbital: periorbital findings normal Sclera: sclerae normal EOM: EOMs intact bilaterally Neck: Neck: normal visual inspection, no lymphadenopathy and trachea midline Chest: Chest palpation & inspection: normal inspection of the chest Resp: Effort & Inspection: normal respiratory effort Auscultation: clear to auscultation bilaterally Cardio: Jugular venous distension: no JVD Rate: regular rate Rhythm: regular rhythm Heart sounds: S1 normal heart sound present and S2 normal heart sound present Peripheral pulses: Peripheral pulses 2+ throughout GI: Inspection: normal to inspection GI Palp: Yes Soft to palpation, No Tenderness to palpation present (GI), No Guarding due to palpation present (GI), Yes Hernia present incisional 3-10 cm and No Rebound tenderness present Percussion: Yes normal to percussion Auscultation: normal bowel sounds : General: Yes no CVA tenderness Back/Spine/Pelvis: Back: no CVA tenderness Neuro: General: patient oriented x3, no focal motor deficits and CN's II-XI intact bilaterally Cognition (Neuro): normal cognition Speech: normal speech Motor exam (neuro): 5/5 motor strength present throughout Extrem: General: capillary refill normal and no clubbing, cyanosis or edema Assessment and Plan Assessment and plan (1) Incisional hernia: Qualifiers: Obstruction and gangrene presence: without obstruction or gangrene Qualified Code(s): K43.2 - Incisional hernia without obstruction or gangrene Code(s): K43.2 - Incisional hernia without obstruction or gangrene Status: Acute Assessment and Plan: I have recommended laparoscopic incisional hernia repair with mesh, da Christopher assisted. I have discussed the procedure, risks, benefits, and alternatives with the patient. All questions answered. No changes since last seen in office.
--- NOTE | 2024-07-28 09:21 | WPDHPUPDATE1 ---
History and Physical Update Update Date/Time: 07/28/24 09:21 History and Physical has been reviewed, including an updated exam of the patient. There are NO changes in the patient's condition. Risks, benefits, and alternatives have been discussed and questions answered. Patient agrees to proceed with procedure.
--- NOTE | 2024-07-28 09:46 | WPDANESEPPF ---
Anes - Initial Pre Proc Eval Procedure: Operation Date: 07/28/24 10:00 Proposed Procedures p Laparoscopic Incisional Hernia Repair with Mesh, Davinci Assisted - Mahendra Diaz DO Date/Time: 07/28/24 09:46 Surgeon: Mahendra Diaz DO Pre Op Diagnosis: Inc Hernia Patient Data Age: 53 Gender: F Height: 1.57 m Weight: 112.7 kg Last Vital Signs Temp 36.5 C 07/28/24 08:41 Pulse 76 07/28/24 08:41 Resp 16 07/28/24 08:41 BP 139/89 07/28/24 08:41 Pulse Ox 99 07/28/24 08:41 O2 Del Method Room Air 07/28/24 08:41 Allergies Allergy/AdvReac Type Severity Reaction Status Date / Time No Known Allergies Allergy Verified 07/15/24 15:44 Home Medications ?Medication ?Instructions ?Recorded ?Confirmed ?Type lisinopril 10 1 tablet PO DAILY 07/15/19 07/28/24 History mg-hydrochlorothiazide 12.5 mg tablet venlafaxine 150 mg 150 mg PO DAILY 07/15/19 07/28/24 History capsule,extended release 24 hr montelukast 10 mg tablet 10 mg PO DAILY 07/16/19 07/28/24 History (Singulair) budesonide 160 mcg-glycopyr 9 2 inh inhalation BID #10.7 grams 03/13/23 07/28/24 Rx mcg-formot 4.8 mcg/actuation HFA inhaler (Breztri Aerosphere) albuterol sulfate 2.5 mg/3 mL 2.5 mg (3 mL) inhalation Q4-6H PRN 12/03/23 07/15/24 Rx (0.083 %) solution for nebulization shortness of breath or wheezing #90 mL albuterol sulfate 90 mcg/actuation 1 - 2 puff inhalation Q4-6H PRN 12/13/23 07/15/24 Rx aerosol inhaler shortness of breath or wheezing #8.5 grams [place] 3 1 cap PO DAILY 07/15/24 07/28/24 History cyanocobalamin (vitamin B-12) 1 tablet PO DAILY 07/15/24 07/28/24 History progesterone micronized 1 cap PO DAILY 07/15/24 07/28/24 History Patient hx anesthesia problems: none Family hx anesthesia problems: none Results Review: All pre-operative results and documents have been reviewed as part of the pre-operative evaluation. [facility] Past Medical History Medical History Hyperlipidemia Emphysema (subcutaneous) (surgical) resulting from a procedure Diastolic dysfunction Echocardiogram 2018 demonstrated diastolic dysfunction with elevated left heart pressures EF 55-60% Normal nuclear stress test (08/2020) Eczema Rosacea Anxiety Hypertension Chronic obstructive pulmonary disease PFTs 06/27/2020: Mild obstructive abnormality without significant improvement with bronchodilators. Study without significant change compared to 2018. Former smoker Nodule of right lung With stable CT scan January 2021. Exam consistent with granulomatous disease KAREN (obstructive sleep apnea) CPAP of 11 Surgical History Surgical History History of hysterectomy 2022 Dr. Gibbons History of tonsillectomy and adenoidectomy History of sinus surgery History of laparoscopic cholecystectomy (2014) History of tubal ligation Family History Family History Sibling Depression Patient's brother is in good health Patient's sister is in good health Mother , Age 52 Acute myocardial infarction Hypertension Emphysema of lung Father , Age 30s Trauma Other Family history of gastrointestinal disorder Social History Social History Social History: She reports that she and her have been together for over 30 years but have only been for about 13 years. They have 2 daughters who are healthy. She used to smoke 1.5 packs of cigarettes per day. She reports that she drinks 6 beers twice a week. She denies any illicit substance use. 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 Primary care physician: Dr. Tejada Code status: Full code Surrogate decision maker: Smoking packs per day: 1 Smoking cigarettes per day: 20.0 Years smoked: 25 Smoking pack-years: 25.00 Smoking status: Former smoker Tobacco type: cigarettes Second hand tobacco smoke exposure: Yes Smoking end date: 06/17/11 Alcohol intake: current Drinks per week: 12 Alcohol use details: weekend drinker socially Substance use: never Substance use type: does not use Do You Feel Safe in your Home?: Yes Lack of Transportation: No Lack of Food: Never True Current Housing: I Have Housing Concerned About Future Housing: No Difficulty Paying Gas/Electric Bills: No Difficulty Paying for Meds: No Currently Unemployed: No Education: High School Diploma/GED Living arrangements: with family Occupation/Education: occupation 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/education 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 Gender identity (if verbalized by the patient): Female Spiritual care concerns: No Anes - Eval Final PreProcedure Day of Procedure 07/28/24 09:46 Patient weight: morbidly obese Heart: regular rate and rhythm Lungs: clear to auscultation and normal air movement Airway: Mallampati scale class III Neurological: alert and oriented Last oral intake: >/= 8 hours ASA classification: III Emergent: no Anesthetic plan: proceed Anesthesia type and monitoring: general ETT and standard monitoring Results Review: All pre-operative results and documents have been reviewed as part of the pre-operative evaluation. Informed Consent: The patient's anesthetic plan and its attendant risks and benefits were discussed with the patient/family/POA. Questions were solicited and answers provided to the satisfaction of the patient/family/POA.
[2024-07-28] MEDS: ceFAZolin 2 GM/D5W 50 ML 2 GM/50 ML BAG IVPB (09:50)
[2024-07-28] MEDS: BUPIVACAINE/EPINEPHRINE 0.5% 50 ML VIAL 30 ML INFILTRATE (11:30)
[2024-07-28] MEDS: LACTATED RINGERS 1,000 ML 30 ML IV CONT (11:41)
--- NOTE | 2024-07-28 11:41 | W.PM.PROC2 ---
Procedure Note - Detailed Date of Procedure 07/28/24 Pre-op Diagnosis Incisional hernia Post-op Diagnosis Same (4 cm Incisional hernia and 1 cm umbilical hernia) Procedure Performed 1. Laparoscopic 4 cm incisional hernia repair with mesh, da Christopher assisted 2. Laparoscopic 1 cm umbilical hernia repair, da Christopher assisted Surgeon Mahendra Diaz DO Anesthesia General and Local (0.5% bupivacaine with epinephrine) Indications This is a 53-year-old woman who presented with a worsening upper abdominal hernia. She was found to have an incisional hernia near 1 of her port sites from prior laparoscopic surgery. This was fairly small at 1st but has increased in size over the past year. She was found to have a 4 cm upper abdominal incisional hernia on exam. Discussions were made with the patient about treatment options and decision was made to proceed with robotic assisted laparoscopic incisional hernia repair with mesh. Findings Robotic assisted laparoscopic 4 cm incisional hernia repair with mesh was performed. Upon inspecting the abdomen laparoscopically, there did also appear to be a 1 cm umbilical hernia which was about 12 cm inferior to the incisional hernia. The incisional hernia was in the upper midline abdomen and this contained omentum, peritoneal fluid, and preperitoneal fat. A robotic transabdominal preperitoneal approach was utilized for repair. Once a preperitoneal pocket was created and the hernia sac was reduced, I then closed the fascia using 0 Stratafix running absorbable suture. A Ventralight ST 15 cm x 10 cm mesh was then placed and secured to the fascia, and then the peritoneum was closed over the mesh. I then chose to repair the umbilical hernia primarily using 0 Ethibond [id number] sutures. This hernia was also measuring 1 cm. Two sutures were placed to approximate the fascia. No other intra-abdominal abnormalities were noted. No specimens were obtained for pathology. Description of Procedure Procedure as well as risks, benefits, and alternatives were discussed with the patient. Written consent was obtained and placed in chart prior to procedure. Patient was brought back to surgical suite. She was placed supine on operating table. Time-out was done to confirm patient and procedure. She was then intubated by the anesthesia department. A bump was placed under her left hip, and the bed was flexed slightly to extend the space between her costal margin and iliac crest. Her abdomen was prepped and draped in sterile fashion using chlorhexidine prep. A 5 millimeter incision was made in the left upper quadrant, and a 5 millimeter Optiview trocar was advanced through the abdominal layers under direct visualization. Once inside the abdominal cavity, carbon dioxide insufflation was used to create a pneumoperitoneum. Her abdomen was inspected. An 8 millimeter incision was made in the left lower quadrant, and an 8 millimeter robotic trocar was placed under direct visualization. Another 8 millimeter incision was made in the left lateral abdomen, and an 8 millimeter robotic trocar was placed under direct visualization. 0.5% bupivacaine with epinephrine was infiltrated around each port site. The 5 millimeter port was removed, and an 8 mm robotic trocar was placed under direct visualization. The robotic arms were brought up to the patient's bedside and secured to the ports. The camera and instruments were inserted, and I then moved over to the robotic console and took control of the camera and instruments. After careful thorough inspection of the abdominal cavity, I began my dissection at the hernia. The omentum within the hernia was carefully reduced and there was a gush of peritoneal fluid that came out of the hernia sac with the omentum. A preperitoneal plane was started in the left upper quadrant using scissors with electrocautery. The preperitoneal plane was then dissected using scissors with electrocautery along the left lateral abdomen and then this was dissected medially to the hernia defect. The hernia sac then reduced and the dissection was continued to the right lateral abdomen. Once a wide enough preperitoneal pocket was created for mesh placement I then measured the hernia size. The hernia measured 4 cm. The fascia was closed using an 0-Stratafix running suture in a vertical fashion. A Ventralight ST 15 cm x 10 cm mesh was then placed within the preperitoneal pocket. This was oriented vertically with the mesh centered on the hernia defect. The mesh was then secured at the center and 4 corners using 3-0 Vicryl simple interrupted sutures. The peritoneum was then closed over the mesh using 3 0 V lock running absorbable suture. The repair was inspected, and one final inspection was made around the abdominal cavity. The preperitoneal fat around the umbilical hernia was excised using scissors with electrocautery. The hernia defect only measured 1 cm. Decision was made to repair the umbilical hernia using 0 Ethibond [id number] sutures. A total of 2 sutures were placed vertically to approximate the fascia. After were securing down these sutures, the repair was inspected and appeared secure. The robotic instruments were then removed, and the robotic arms were disengaged from the trocars. The ports were then removed under direct visualization, the camera was removed, and the pneumoperitoneum was released. The skin of the incisions was then approximated using 4-0 Monocryl subcuticular suture. Exofin glue was then applied on top. The patient was then awakened from anesthesia, extubated, and transferred to recovery. Implants Ventralight ST 15 cm x 10 cm mesh Estimated Blood Loss 5 Complications No immediate complications Condition Stable Disposition Same day [facility] Billing Surgery - Charge Forward: Surgery Billing
[2024-07-28] MEDS: HYDROmorphone HCL INJ (*CRX) 1 MG/ML SYR 0.25 MG IV PUSH ×4 (11:51→12:07)
[2024-07-28] MEDS: ONDANSETRON INJ 4 MG/2 ML VIAL IV PUSH (11:51)
[2024-07-28] MEDS: diazePAM INJ (*CRX) 10 MG/2 ML SYRINGE 2 MG IV PUSH ×2 (12:16→12:34)
[2024-07-28] MEDS: oxyCODONE HCL (*CRX) 5 MG TAB IR PO (13:37)
[2024-07-28] MEDS: HYDROmorphone HCL INJ (*CRX) 1 MG/ML SYR IV PUSH ×3 (15:17→22:21)
--- NOTE | 2024-07-28 17:50 | ADMGEN ---
This patient, Eli Rey, was admitted to Medical Room 249-01. Patient/family oriented to hospital policies and general routines including ID bracelet, bed and alarms, visiting hours, pain management, procedures, bathroom and other care routines, personal items, smoking policy, room service/diet, and visiting hours. Information on how to activate the Rapid Response Team has been discussed. Patient/Family are encouraged to report perceived risks to care and to ask questions if they do not understand what they are told or what they should do.
[2024-07-28] MEDS: IBUPROFEN IV 800 MG/200 ML 800 MG/200 ML BAG 400 MG IVPB (18:11)
[2024-07-28] MEDS: LACTATED RINGERS 1,000 ML 100 ML IV CONT (18:12)
[2024-07-28] MEDS: oxyCODONE/ACETAMINOPHEN (*CRX) 10-325 MG TABLET 1 TAB PO (20:35)
[2024-07-28] MEDS: FLUTICASONE/UMECLIDIN/VILANTER 100-62.5-25 MCG ELLIPTA 1 PUFF INHALATION (21:00)
[2024-07-29] MEDS: IBUPROFEN IV 800 MG/200 ML 800 MG/200 ML BAG 400 MG IVPB ×2 (00:10→05:56)
[2024-07-29 03:08] VITALS: BP 150/87; PULSE 77; RESP 20; TEMP 36.6; O2SAT 96
[2024-07-29 05:54] LABS: Hematocrit 36.2 % (37.0-47.0); Hemoglobin 11.9 g/dL (12.0-15.0); Mean Corpuscular HGB Conc 32.9 g/dl (32-36); Mean Corpuscular Hemoglobin 30.5 pg (26-34); Mean Corpuscular Volume 92.8 fl (80-100); Mean Platelet Volume 8.9 fl (7.4-10.4); Platelet Count Result 274 k/mm3 (150-375); Red Cell Distribution Width 13.2 % (11.5-14.5); White Blood Count 8.3 K/mm3 (4.5-10.0)
[2024-07-29] MEDS: oxyCODONE/ACETAMINOPHEN (*CRX) 10-325 MG TABLET 1 TAB PO (05:56)
[2024-07-29 06:06] LABS: Anion Gap 9 mmol/L (4-12); Blood Urea Nitrogen 10 mg/dL (7-17); Carbon Dioxide 27 mmol/L (22-30); Chloride 102 mmol/L (98-107); Estimated CRCL calculation 82 ml/min; Estimated Glomerular Filt Rate > 60; Glucose 119 mg/dL (65-110); Potassium 4.5 mmol/L (3.4-5.0); Sodium 138 mmol/L (137-145)
[2024-07-29 07:38] VITALS: BP 137/77; PULSE 86; RESP 18; TEMP 36.7; O2SAT 94
[2024-07-29] MEDS: VENLAFAXINE HCL XR 75 MG CAP.ER.24H 150 MG PO (08:25)
[2024-07-29] MEDS: polyethylene glycoL 3350 17 GM POWD.PACK PO (08:25)
[2024-07-29] MEDS: lisinopriL 10 MG TABLET PO (08:25)
[2024-07-29] MEDS: hydroCHLOROthiazide 12.5 MG CAPSULE PO (08:25)
[2024-07-29] MEDS: MONTELUKAST SODIUM 10 MG TABLET PO (08:25)
[2024-07-29] MEDS: ENOXAPARIN 40 MG/0.4 ML SYRINGE SUB-Q (08:26)
--- NOTE | 2024-07-29 11:12 | PM.PNGS ---
Progress Note: A&P Assessment and Plan (1) Encounter for follow-up examination after completed treatment for conditions other than malignant neoplasm: Code(s): Z09 - Encounter for follow-up examination after completed treatment for conditions other than malignant neoplasm Status: Acute Assessment and Plan: Recovering appropriately on POD#1. Pain a little better controlled today. Discussed staying on top of pain control at home to prevent severe pain. Percocet and Ibuprofen will be sent on discharge. Instructions discussed with patient. Follow up as scheduled in 2 weeks. (2) Other specified postprocedural states: Code(s): Z98.890 - Other specified postprocedural states Status: Acute (3) Morbid obesity: Code(s): E66.01 - Morbid (severe) obesity due to excess calories Status: Acute (4) Hypertension: Qualifiers: Hypertension type: primary hypertension Qualified Code(s): I10 - Essential (primary) hypertension Code(s): I10 - Essential (primary) hypertension Status: Acute (5) KAREN (obstructive sleep apnea): Code(s): G47.33 - Obstructive sleep apnea (adult) (pediatric) Status: Acute Subjective Subjective Date/Time Seen: 07/29/24 11:12 Interval history: Doing better today. Pain was severe after surgery requiring multiple doses of IV pain meds. She was placed in OP extended recovery until pain could be better controlled. Her abdominal binder is very uncomfortable and nursing is trying to get a larger binder to help with the discomfort. She is able to get up with minimal assistance. She has ambulated in the room and feels comfortable going home today. Exam Resp: Effort & Inspection: normal respiratory effort Auscultation: clear to auscultation bilaterally Cardio: Rate: regular rate Rhythm: regular rhythm Heart sounds: S1 normal heart sound present and S2 normal heart sound present GI: Inspection: non-distended, incision (intact with glue) and obesity GI Palp: Yes Soft to palpation and Yes Tenderness to palpation present (GI) (incisional and at hernia repair site) Auscultation: normal bowel sounds Objective Data Vital Signs Vital Signs: Vital Signs - 24 hr 07/28/24 11:41 07/28/24 11:55 07/28/24 12:10 Temperature 97.7 F Pulse Rate 83 79 80 Respiratory Rate 15 15 15 Blood Pressure 131/60 103/86 127/76 Pulse Oximetry 100 95 97 Oxygen Delivery Simple Face Mask Room Air Nasal Cannula Oxygen Flow Rate 8 2 07/28/24 12:25 07/28/24 12:40 07/28/24 12:55 Temperature Pulse Rate 87 78 82 Respiratory Rate 14 16 16 Blood Pressure 131/114 H 137/86 130/80 Pulse Oximetry 96 93 95 Oxygen Delivery Nasal Cannula Nasal Cannula Nasal Cannula Oxygen Flow Rate 2 2 2 07/28/24 13:10 07/28/24 13:25 07/28/24 13:40 Temperature Pulse Rate 82 85 73 Respiratory Rate 13 18 11 L Blood Pressure 129/84 135/81 140/78 Pulse Oximetry 96 92 95 Oxygen Delivery Nasal Cannula Nasal Cannula Nasal Cannula Oxygen Flow Rate 2 1 2 07/28/24 13:55 07/28/24 14:25 07/28/24 14:55 Temperature Pulse Rate 76 76 77 Respiratory Rate 13 15 14 Blood Pressure 132/92 H 142/83 H 139/83 Pulse Oximetry 93 95 96 Oxygen Delivery Nasal Cannula Nasal Cannula Nasal Cannula Oxygen Flow Rate 1 1 1 07/28/24 15:25 07/28/24 15:55 07/28/24 16:25 Temperature Pulse Rate 79 94 79 Respiratory Rate 12 19 13 Blood Pressure 136/89 129/76 134/89 Pulse Oximetry 96 97 96 Oxygen Delivery Nasal Cannula Nasal Cannula Nasal Cannula Oxygen Flow Rate 1 1 1 07/28/24 16:50 07/28/24 17:20 07/28/24 17:23 Temperature 97.9 F Pulse Rate 77 83 82 Respiratory Rate 14 16 Blood Pressure 147/85 H 146/90 H 142/83 H Pulse Oximetry 96 97 99 Oxygen Delivery Nasal Cannula Nasal Cannula Oxygen Flow Rate 1 1 07/28/24 17:38 07/28/24 18:00 07/28/24 18:08 Temperature 97.8 F 97.9 F Pulse Rate 77 84 Respiratory Rate 16 16 16 Blood Pressure 139/80 139/64 Pulse Oximetry 96 97 97 Oxygen Delivery Nasal Cannula Oxygen Flow Rate 2 07/28/24 19:08 07/28/24 20:00 07/28/24 23:08 Temperature 97.8 F 97.7 F Pulse Rate 84 85 Respiratory Rate 20 20 Blood Pressure 146/82 H 151/87 H Pulse Oximetry 93 97 93 Oxygen Delivery Nasal Cannula Oxygen Flow Rate 2 07/29/24 03:08 07/29/24 07:38 07/29/24 08:25 Temperature 97.9 F 98.0 F Pulse Rate 77 86 Respiratory Rate 20 18 Blood Pressure 150/87 H 137/77 Pulse Oximetry 96 94 Oxygen Delivery Room Air Oxygen Flow Rate Intake/Output Intake/Output: Intake & Output 07/26/24 07/27/24 07/28/24 07/29/24 23:59 23:59 23:59 23:59 Intake Total 491.7 1130 Balance 491.7 1130 Meds/Results Medications: Active Medications Generic Name Dose Route Start Last Admin Trade Name Freq PRN Reason Stop Dose Admin Albuterol 1 - 2 puff 07/28/24 17:23 Albuterol Sulfate (*Sp) Aerosol 1 Puff INHALATION Q4-6H PRN shortness of breath or wheezing Enoxaparin Sodium 40 mg 07/29/24 09:00 07/29/24 08:26 Enoxaparin 40 Mg/0.4 Ml Syringe SUB-Q 40 mg DAILY SERVANDO Administration Fluticasone/Umeclidinium/Vilanterol 1 puff 07/28/24 19:00 07/29/24 07:56 Fluticasone/Umeclidin/Vilanter 100-62.5-25 Mcg Ellipta INHALATION Not Given DAILYRT SERVANDO Hydrochlorothiazide 12.5 mg 07/29/24 09:00 07/29/24 08:25 Hydrochlorothiazide 12.5 Mg Capsule PO 12.5 mg QAM SERVANDO Administration Hydromorphone HCl 1 mg 07/28/24 15:11 07/28/24 22:21 Hydromorphone Hcl Inj (*Crx) 1 Mg/Ml Syr IV PUSH 1 mg Q2H PRN Administration Breakthrough Pain Rated 7-10 or NPO Hydromorphone HCl 0.5 mg 07/28/24 15:11 Hydromorphone Hcl Inj (*Crx) 1 Mg/Ml Syr IV PUSH Q2H PRN Breakthrough Pain Rated 4-6 or NPO Ibuprofen 800 mg in 200 mls @ 400 mls/hr 07/28/24 18:00 07/29/24 06:53 Caldolor 800 Mg/200 Ml IVPB 07/29/24 12:29 Infused Q6H SERVANDO Infusion Lisinopril 10 mg 07/29/24 09:00 07/29/24 08:25 Lisinopril 10 Mg Tablet PO 10 mg QAM [facility] Administration Miscellaneous Information 0 each 07/28/24 00:01 Progesterone Is Nonformulary - Can Patient Use From Home? XX 08/27/24 00:00 CLARIFY [facility] Montelukast Sodium 10 mg 07/29/24 09:00 07/29/24 08:25 Montelukast Sodium 10 Mg Tablet PO 10 mg DAILY SERVANDO Administration Naloxone HCl 0.1 mg 07/28/24 15:11 Naloxone Hcl 0.4 Mg/Ml Vial IV PUSH Q2M PRN Opiate Reversal Non-Formulary Medication 1 cap 07/29/24 09:00 Progesterone Micronized PO 08/28/24 08:59 DAILY [facility] Ondansetron HCl 4 mg 07/28/24 17:23 Ondansetron Inj 4 Mg/2 Ml Vial IV PUSH Q4H PRN Nausea And Vomiting Oxycodone/Acetaminophen 1 tablet 07/28/24 17:23 Oxycodone/Acetaminophen (*Crx) 5-325 Mg Tablet PO Q4H PRN Pain Rated 4-6 Oxycodone/Acetaminophen 1 tab 07/28/24 17:23 07/29/24 05:56 Oxycodone/Acetaminophen (*Crx) 10-325 Mg Tablet PO 1 tab Q6H PRN Administration Pain Rated 7-10 Polyethylene Glycol 17 gm 07/29/24 09:00 07/29/24 08:25 Polyethylene Glycol 3350 17 Gm Powd.Pack PO 17 gm QAM [facility] Administration Venlafaxine HCl 150 mg 07/29/24 09:00 07/29/24 08:25 Venlafaxine Hcl Xr 75 Mg Cap.Er.24h PO 150 mg DAILY SERVANDO Administration Labs Labs: Laboratory Results - last 24 hr 07/29/24 05:37 WBC 8.3 RBC 3.90 L Hgb 11.9 L Hct 36.2 L MCV 92.8 MCH 30.5 MCHC 32.9 RDW 13.2 Plt Count 274 MPV 8.9 Sodium 138 Potassium 4.5 Chloride 102 Carbon Dioxide 27 Anion Gap 9 BUN 10 D Creatinine 0.81 Estim Creat Clear Calc 82 Estimated GFR > 60 Glucose 119 H Calcium 9.0
[2024-07-29] MEDS: IBUPROFEN IV 800 MG/200 ML 800 MG/200 ML BAG 200 MG IVPB (11:31)
== END 2024-07-29 13:10 | disposition home or self-care (01) ==
LOC: ANHSURGERY 11:39 → ANH2MED 17:39
PROVIDERS: PCP Internal Medicine; Visit Provider Surgery
PROC: (CPT 49593; principal; 2024-07-28 10:00)
DX: K43.2 Incisional hernia without obstruction or gangrene (principal); K42.9 Umbilical hernia without obstruction or gangrene; Z87.891 Personal history of nicotine dependence; E66.01 Morbid (severe) obesity due to excess calories; Z68.42 Body mass index [BMI] 45.0-49.9, adult
CPT/HCPCS: 49593; S2900; 36415; 80048; 85027; 94640; A9270; C1781; J0690; J1100; J1171; J1650; J1741; J1885; J2003; J2250; J2405; J2704; J3010; J3360; J7120

== ENCOUNTER 2024-12-28 13:12 | Outpatient (CLI) | payer OTHER, SELFPAY ==
--- NOTE | ~2024-12-28 | CT_ITS ---
CT Scan of the Chest without Contrast: Clinical Indication: Lung cancer screening, nicotine dependence Technique: Contiguous sections were acquired throughout the chest without intravenous contrast. Dose reduction technique was used on this scan by utilizing automated exposure control and iterative recon struction technique. The dose-length product (DLP) was 281.95 mGy-cm. COMPARISON: 12/09/2023 Findings: There is no evidence of any significant mediastinal, hilar or axillary lymphadenopathy. The mediastin al soft tissues appear normal. There is no evidence of pleural or pericardial effusion. Probable focal tiny tree-in-bud opacity in the right middle lobe. Moderate emphysema present. Images through the upper abdomen reveal no abnormalities. Impression: Lung RADS 2: Benign appearance. [address] advised[address] Focal tree-in-bud opacities in the right middle lobe suggest focal, mild small airways infectious pro cess. Moderate emphysema. Reviewed, dictated and finalized at [facility]. Impression: Lung RADS 2: Benign appearance. [address] advised[address] Focal tree-in-bud opacities in the right middle lobe suggest focal, mild small airways infectious process. Moderate emphysema.
--- OUTSIDE RECORDS SUMMARY | 2024-12-28 13:25 | XMS_ITS | Referral Summary ---
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 Gender Identity Not on file Sexual Orientation Not on file Last Filed Vital Signs Vital Sign Reading Time Taken Comments Blood Pressure 118/74 07/13/2022 3:24 PM FILLING MACHINE TENDER Pulse 86 07/13/2022 3:24 PM FILLING MACHINE TENDER Temperature - - Respiratory Rate - - Oxygen Saturation 98% 07/13/2022 3:24 PM FILLING MACHINE TENDER Inhaled Oxygen Concentration - - Weight 105.2 kg (232 lb) 07/13/2022 3:24 PM FILLING MACHINE TENDER Height 157.5 cm (5' 2) 07/13/2022 3:24 PM FILLING MACHINE TENDER Body Mass Index 42.43 07/13/2022 3:24 PM FILLING MACHINE TENDER Plan of Treatment Not on file Insurance [employer] SIG [id number] Care Teams Fixed Interest Dealer Relationship Specialty Start Date End Date Stephen Tejada MD PCP - General Internal Medicine 05/31/22
--- OUTSIDE RECORDS SUMMARY | 2024-12-28 13:25 | XMS_ITS | Data Portability ---
Author Organization [facility] Address [address] [place] [address] [address] Care Team Providers Care Magazine Keeper Name Role Phone STEPHANE SHUKLA Primary Care Provider [phone] Assessment No assessment recorded. Plan of Treatment Reminders Order Date Submit Date Provider Last Modified By Organization Details Last Modified Time Details Appointments None recorded. Lab urinalysis, dipstick 2022 023 [email or web address] [address], [address], [place], [address], 3 17:49:03 urinalysis, dipstick 2022 023 [email or web address] [address], [address], [place], [address], 3 17:04:03 urinalysis, dipstick 2022 023 [email or web address] [address], [address], [place], [address], 3 10:41:52 Referral None recorded. Procedures None recorded. Surgeries None recorded. Imaging None recorded. Medication Orders phentermine 30 mg capsule 2022 023 MIKAYLA [id number] [facility], [address] [place], [address], 3 11:05:28 estradiol 1 mg tablet 2022 023 [id number], [address] [place], [address], 3 11:08:45 Patient TargetsNo targets recorded. Patient InstructionsNo instructions recorded. Reason for Referral None Reported. Results Created Date Observation Date Name Description Value Unit Range Abnormal Flag Note LastModifiedBy Organization Detail LastModifiedTime 03/07/20 23 03/07/2023 urina lysis , dipst ick Leukocytes TRACE Not Available [facility] [address], [place], [address], 03/07/2023 10:40:42 03/07/20 23 03/07/2023 urina lysis , dipst ick Nitrite NEGATI VE Not Available [place] [address], [place], [address], 03/07/2023 10:40:42 03/07/20 23 03/07/2023 urina lysis , dipst ick Protein NEGATI VE Not Available [address], [place], [address], 03/07/2023 10:40:42 03/07/20 23 03/07/2023 urina lysis , dipst ick Specific [place] 1.005 Not Available [facility] [address], [place], [address], 03/07/2023 10:40:42 03/07/20 23 03/07/2023 urina lysis , dipst ick Glucose NORMAL Not Available [address], [place], [address], 03/07/2023 10:40:42 04/01/20 23 04/01/2023 CULTU RE: URINE result report SEE RESULT S BELOW Test: Cultu re: Urine Speci men Sourc e: Urine Voide d Speci men Type: Urine Speci men Date: 04/01 4:34 PM Resul t Date: 04/03 11:14 AM Resul t Statu s: Final resul t Abnor mal: No Resul ting Lab: [facility] [address] [facility] [address] Tel: CULTU RE ----- ----- ----- --- Cultu re resul t (>=3 organ isms prese nt) indic ates possi ble conta minat ion. Repea t cultu re if sympt oms indic ate. Not Available [facility] (Lab) [address], [place], [address], 04/03/2023 12:17:56 04/01/2004/01/2023 urina lysis , dipst ick Leukocytes +1 Not Available [facility] [place] [address], [place], [address], 04/01/2023 17:02:56 04/01/2004/01/2023 urina lysis , dipst ick Nitrite negati ve Not Available [place] [address], [place], [address], 04/01/2023 17:02:56 04/01/20 23 04/01/2023 urina lysis , dipst ick Protein trace Not Available [place], [place], [address], 04/01/2023 17:02:56 04/01/2004/01/2023 urina lysis , dipst ick pH 6 Not Available [place] [address], [place], [address], 04/01/2023 17:02:56 04/01/20 23 04/01/2023 urina lysis , dipst ick Blood +++ Not Available [place] [address], [place], [address], 04/01/2023 17:02:56 04/01/20 23 04/01/2023 urina lysis , dipst ick Specific [place] 1.015 Not Available [facility] [address], [place], [address], 04/01/2023 17:02:56 04/01/20 23 04/01/2023 urina lysis , dipst ick Glucose normal Not Available [address], [place], [address], 04/01/2023 17:02:56 04/24/2004/24/2023 CULTU RE: URINE result report SEE RESULT S BELOW Test: Cultu re: Urine Speci men Sourc e: Urine Voide d Speci men Type: Urine Speci men Date: 2022 5:20 PM Resul t Date: 2022 7:33 PM Resul t Statu s: Final resul t Abnor mal: No Resul ting Lab: [facility] [address] [address] Tel: CULTU RE ----- ----- ----- --- No growt h in 1 day (dete ction level of 10,00 0 colon ies / ml.) Not Available [facility] (Lab) [address], [place], [address], 04/25/2023 20:36:01 04/24/2004/24/2023 urina lysis , dipst ick Leukocytes trace Not Available [facility] [address], [place], [address], 04/24/2023 17:48:02 04/24/20 23 04/24/2023 urina lysis , dipst ick Nitrite negati ve Not Available [address], [place], [address], 04/24/2023 17:48:02 04/24/20 23 04/24/2023 urina lysis , dipst ick Protein negati ve Not Available [place] [address], [place], [address], 04/24/2023 17:48:02 04/24/20 23 04/24/2023 urina lysis , dipst ick pH 6 Not Available [place] [address], [place], [address], 04/24/2023 17:48:02 04/24/20 23 04/24/2023 urina lysis , dipst ick Specific [place] 1.010 Not Available [facility] [address], [place], [address], 04/24/2023 17:48:02 04/24/20 23 04/24/2023 urina lysis , dipst ick Ketone +1 Not Available [place] [address], [place], [address], 04/24/2023 17:48:02 04/24/20 23 04/24/2023 urina lysis , dipst ick Glucose normal Not Available [place] [address], [place], [address], 04/24/2023 17:48:02 04/25/20 23 04/25/2023 CT, abdom en + pelvi s, w/ contr ast No observ ation record ed. [address], [place], [address], 04/29/2023 10:58:19 Result Notes None recorded. Procedures Surgical History Date Name Laterality Status Provider Name and Address Organization Details Recorded Time 023 ROBOTIC ASSISTED HYSTERECTOMY W/BILATERAL SALPINGO-OOPHORECT ANALILIA (SURG) completed Iman Manzano [facility] 02/28/2023 09:58:14 023 Endometrial Biopsy completed Peter Gibbons MD [address], [place], [address], [facility] 07/30/2022 17:40:35 023 Date of Last Mammogram completed [facility] 02/25/2023 09:43:[address] [facility] 02/25/2023 09:43:35 022 Date of Last Pap Smear completed [facility] 08/04/2022 10:10:06 022 completed Venessa Starr [facility] 04/24/2022 10:13:34 013 Cholecystectomy completed Peter Gibbons MD [address], [place], [address], [facility] 09/25/2022 12:38:08 998 Caesarean Section completed [facility] 11/06/2022 11:00:30 992 Caesarean Section completed [facility] 11/06/2022 11:00:29 Laparoscopy completed [facility] 04/12/2022 09:56:02 Tubal Ligation completed [facility] 04/12/2022 09:56:02 Colonoscopy completed [facility] 04/12/2022 09:56:02 Caesarean Section completed [facility] 04/12/2022 09:56:03 Endometrial Ablation completed [facility] 01/24/2023 16:20:[address] [facility] 04/25/2023 10:49:59 Imaging Results None recorded. Procedure Notes None recorded. Medical Equipment None [...] Available progesteron e micronized 100 mg capsule TAKE 1 CAPSULE BY MOUTH EVERY DAY 01/05 completed Not Available Not Available Not [...] Body mass index (BMI) Body weight Systolic And Diastolic Provider Name and Address Organization Details Last Updated DateTime 02/25/2023 157.48 cm 41.2 kg/m2 888040.28 g 127/84 mm[Hg] [facility] 02/25/2023 09:43:17 Date Recorded Body height Body mass index (BMI) Body weight Systolic And Diastolic Provider Name and Address Organization Details Last Updated DateTime 03/07/2023 157.48 cm 40.8 kg/m2 145199.1 g 137/80 mm[Hg] [facility] 03/07/2023 10:29:12 Date Recorded Body height Body mass index (BMI) Body weight Systolic And Diastolic Provider Name and Address Organization Details Last Updated DateTime 04/01/2023 157.48 cm 40.8 kg/m2 963790.1 g 131/87 mm[Hg] [facility] 04/01/2023 16:52:32 Date Recorded Body height Provider Name an d Address Organization Details Last Updated DateTime 04/24/2023 157.48 cm [facility] 04/24/2023 17:40:54 Social History Question Answer Notes LastModified by Organizat ion Details LastModified Time Tobacco Smoking Status Former Smoker Paulina Ojeda [facility] 04/01/2023 16:47:03 Do You Have An Advance Directive? No Information not available 04/12/2022 How Many Years Have You Consumed Alcohol? [...] Or The Highest Degree You Have Received? [id number] Information not available 04/12/2022 Are There Any [...] IV Drugs? No Information not available 04/12/2022 Do You Have Difficulty Walking Or Climbing Stairs? No Information not available 04/01/2023 Sex: Unknown Functional Status Question Answer Note LastModified by Organizat ion Details LastModified Time Do you use any illicit or recreational drugs? No Information not available 04/12/2022 What is your level of alcohol consumption? Occasional Information not available 07/18/2022 Are you able to walk? YESWOREST Information not available 04/12/2022 Are you able to care for yourself? 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 No [email or web address] Information not available 04/01/2023 What is your exercise level? Moderate Information not available 11/06/2022 Mental Status Question Answer Note LastModified by Organization D etails LastModified Time Do you feel stressed (tense, restless, nervous, or anxious, or unable to sleep at night)? [id number] Information not available 04/12/2022 Family History Relationship Description Onset Age of this Age Resolved Age Notes LastModified by Organization Details LastModified Time Mother Anemia Not available 02/25/2023 09:43:21 Mother Depressive disorder Not available 2022 09:43:21 Mother Heart disease 50 Not available 2022 09:43:21 Medical History Condition Response Anxiety Disorder Y Pulmonary (TB, Asthma) Y Endometriosis Y Urinary Tract Infection Y Headaches Y Hypertension Y Lung Disease Y Gynecological [...] SNOMED-CT Code Diagnosis ICD10 Code Diagnosis Note [id number] HARDEEP Juarez [place] [address] [address] 04/12/2022 09:24:40 04/12/2022 10:38:19 Pain in pelvis 80109718 R10.2 Today we agreed to update TVUS and pap smearShe will RTC for pelvic u/s f/u with MD consult given her hx of chronic pelvic pain and endometrio sisPatient agrees to this planED precaution s discussed History of endometriosis [id number] 5048055 Z87.42 Dyspareunia 04486899 N94 .10 Encouraged crisco twice daily to vulva, use this as lubricatio n with intercours e. May need to consider vaginal estrogen. Time spent in visit is a total of 35 mins with at least 50% of visit consisting of counseling and review of plan of care. [id number] Peter Gibbons MD [place] [address],[place] [address] 04/18/2022 16:37:42 04/18/2022 17:53:47 Pain in pelvis 47094904 R10.2 N94.10 [id number] Peter Gibbons MD [place] [address],[place] [address] 04/24/2022 10:11:08 04/24/2022 10:50:43 Menopausal symptom 66017729 N95.1 Pain in pelvis 44405654 R10.2 N94.10 This patient is a 51-year-ol [...] /menopausa l/perimeno pausal woman with pelvic pain. [id number] HARDEEP Juarez [place] [address],[place] [address] 05/25/2022 09:38:46 05/25/2022 14:46:49 Obesity 528381986 E66.9 51yo Presents for initial weight management [...] training sessions per week.Healt hy eating discussed, podiatric aide appointmen joesph scheduledL abs ordered, EKG orderedWei ght loss medication options discussed, will review labs and decide on medication options as next visit Time spent in visit is a total of 45 mins with at least 50% of visit consisting of counseling and review of plan of care. [id number] Peter Gibbons MD [place] [address] [address] 06/02/2022 11:05:04 06/04/2022 14:48:23 Obesity 888149959 E66.9 this patient is a 51-year-ol d [...] pending. She will follow-up in 2 weeks. [id number] Zulema BautistaHARDEEP [place] [address],[place] [address] 07/18/2022 16:51:14 07/18/2022 18:20:55 Postmenopausal bleeding 39516921 N95.0 Today we discussed postmenopa usal bleeding [...] plan of care. Venereal d isease screening 748019397 Z11.3 [id number] Peter Gibbons MD [place] [address],[place] [address] 07/19/2022 17:21:36 07/20/2022 12:11:14 Abnormal uterine bleeding 0851403241 9100 N93.9 [id number] Peter Gibbons MD [place] [address],[place] [address] 07/30/2022 16:22:13 07/30/2022 17:44:45 Postmenopausal bleeding 86517960 N95.0 endometria l biopsy was intensely painful, it was completed without complicati ons. To follow-up on biopsy results [id number] Peter Gibbons MD [place] [address],[place] [address] 08/04/2022 09:41:42 08/04/2022 11:13:33 Abnormal uterine bleeding 6939416365 9100 N93.9 Obesity 131610987 E66.9 this patient is a 51-year-ol d female presents for follow-up on weight management . We spent 20 minutes face-to-fa ce. More than 50% was counseling . We talked about medical weight management . We talked in detail about risks, benefits, and efficacy of the various medication s. we talked about her activity level. She is exercising doing resistance training. She is doing Syntensia work. She has not lost any weight. [...] increased her progestero ne to 200 mg [id number] Peter Gibbons MD [place] [address],[place] [address] 08/20/2022 15:36:22 08/20/2022 20:52:51 [id number] Peter Gibbons MD [place] [address],[place] [address] 09/25/2022 11:10:42 09/25/2022 13:05:48 Obesity 010594479 E66.9 this patient is a 51-year-ol d [...] face-to-fa ce. More 50% was counseling . [id number] Peter Gibbons MD [place] [address],[place] [address] 11/06/2022 10:30:20 11/06/2022 11:54:30 Obesity 353140317 E66.9 this patient is a 51-year-ol d [...] she is going to do well here. [id number] MD Abby [place] [address],[place] [address] 12/24/2022 17:00:59 12/25/2022 10:26:09 Postmenopausal bleeding 23162471 N95.0 this patient is a 52-year-ol d [...] estradiol a and 5 mg norethindr one. [id number] Peter Gibbons MD [place] [address],[place] [address] 01/05/2023 10:37:11 01/07/2023 14:16:33 Obesity 160564891 E66.9 This patient is a 52 year [...] ce pain with 50% was counseling . [id number] MD Abby [place] [address],[place] [address] 01/24/2023 15:59:56 01/24/2023 17:07:51 Abnormal uterine bleeding 2275939968 9100 N93.9 This female is a 52-year-ol [...] made a decision to perform surgery today. [id number] Peter Gibbons MD [place] [address] [address] 02/25/2023 09:38:34 02/26/2023 11:00:08 Abnormal uterine bleeding 1930756261 9100 N93.9 this patient is a 52-year-ol d female with abnormal uterine bleeding. We agreed to perform robotic assisted hysterecto my with bilateral salpingo-o ophorectom y. She understand s the risks, benefits, and alternativ es. She has completed the informed consent process and is ready to proceed. [id number] Peter Gibbons MD [place] [address],[facility] [place] [address] 03/01/2023 10:12:41 03/01/2023 10:14:09 [id number] Peter Gibbons MD [place] [address],[place] [address] 03/07/2023 10:22:11 03/07/2023 11:13:38 Urinary symptoms 755197402 R39.9 Postmenopa usal bleeding 82616461 N95.0 \ Obesity 768862645 E66.9 Postoperative care 57394 9007 Z48.89 52-year-ol d female presents for postop follow-up. She is 1 week postop normally hysterecto my, minimally invasive. She has no complaints . She is doing well. Incisions are clean dry and intact. She is eager to return to work. No complaints , problems. Follow-up as needed [id number] Peter Gibbons MD [place] [address],[place] [address] 04/01/2023 16:46:36 04/02/2023 08:49:42 Pain in pelvis 70952314 R10.2 N94.10 49-year-ol d female with postop [...] there were no postoperat jeffrey complicati ons. [id number] Peter Gibbons MD [place] [address] [address] 04/24/2023 17:06:18 04/24/2023 18:10:20 Urinary symptoms 900025618 R39.9 Health Concerns Section Related Observation LastModified by Organization Detai ls LastModified Time None Recorded Concern Status LastModified by Organization Details LastModified Time None Recorded Advance Directives Directive N: Payers Insurance Date Sequence Insurance Name Policy Number Policy Shelby Covered Member ID Shelby Member ID Guarantor Name 03/06/2023 1 [facility] Eli Rey [id number] Eli Rey 04/23/[address] [facility] [id number] [address] Rey [id number] Eli Rey Notes Date Note Type Note [...] infection. Peter Gibbons MD [address], [place], [address], [facility] 02/25/2023 18:17:55 03/07/2023 text/html 52-year-old fema eugenia presents for postop follow-up. She is 1 week postop normally hysterectomy, minimally invasive. She has no complaints. She is doing well. Incisions are clean dry and intact. She is eager to return to work. No complaints, problems. Follow-up as needed Peter Gibbons MD [address], [place], [address], [facility] 03/07/2023 11:13:21 04/01/2023 text/html 49-year-old fema le with postop pelvic pain and pressure. It [...] were no postoperative complications. Peter Gibbons MD [address], [place], [address], [facility] 04/01/2023 21:04:03 OBGyn Episode Ob Episode Information Episode Created Date Number of Fetuses Patient Bloodtype Patient rh Status Prepregnancy Weight lbs Domestic Partner Domestic Partner Phone Father Name Tractor Crane Engineer Status 04/12/20 22 1 CLOSED Fetus Data First Name Last Name Admitted to NICU Weight (g) Sex Living Outcome Pediatric Complications Fetus ID Race Codes Race Delivery Type 3798.83 3 F Full Term [id number] Primary Tramaine Calculation Initial Tramaine Date Initial [...] Domestic Partner Domestic Partner Phone Father Name Tractor Crane Engineer Status 04/12/20 22 1 CLOSED Fetus Data First Name Last Name Admitted to NICU Weight (g) Sex Living Outcome Pediatric Complications Fetus ID Race Codes Race Delivery Type F Full Term [id number] Repeat Tramaine Calculation Initial Tramaine Date Initial [...]
--- OUTSIDE RECORDS SUMMARY | 2024-12-28 13:25 | XMS_ITS | Clinical Summary ---
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 Gender Identity Not on file Sexual Orientation Not on file Obstetrics History Last Filed Vital Signs Vital Sign Reading Time Taken Comments Blood Pressure 118/74 07/13/2022 3:24 PM EXPORT PACKER Pulse 86 07/13/2022 3:24 PM EXPORT PACKER Temperature - - Respiratory Rate - - Oxygen Saturation 98% 07/13/2022 3:24 PM EXPORT PACKER Inhaled Oxygen Concentration - - Weight 105.2 kg (232 lb) 07/13/2022 3:24 PM EXPORT PACKER Height 157.5 cm (5' 2) 07/13/2022 3:24 PM EXPORT PACKER Body Mass Index 42.43 07/13/2022 3:24 PM EXPORT PACKER Plan of Treatment Health Maintenance Due Date Last Done Comments Breast Cancer Screening-Mammogram 1969 Cervical Cancer Screening 1969 Colon Cancer Screening-Colonoscopy 1969 Depression Screening 1969 Hepatitis C Screening 1969 DTaP/Tdap/Td Vaccine (1 - Tdap) 1980 Hepatitis B Screening 12/21/1987 Regular Well Visit/Exam 18-64 12/21/1987 Pneumococcal vaccine <65 (1 of 2 - PCV) 1988 Zoster Vaccine (1 of 2) 12/21/2019 Influenza Vaccine (#1) 2025 02/27/2020 Insurance [employer] SIG [id number] Care Teams Bowling Floor Manager Relationship Specialty Start Date End Date Stephen Tejada MD PCP - General Internal Medicine 05/31/22
--- OUTSIDE RECORDS SUMMARY | 2024-12-28 13:25 | XMS_ITS | Data Portability ---
Author Organization [facility] [employer], Main Office Address [address] [place] [address] Care Team Providers Care Shactor Name Role Phone STEPHANE TEJADA Primary Care Provider [phone] Assessment No assessment recorded. Plan of Treatment Reminders Order Date Submit Date Provider Last Modified By Organization Details Last Modified Time Details Appointments None recorded. Lab vitamin D, 25-hydroxy, total, serum [address] (Lab), [address] [place], [address], 4 14:34:10 CMP, serum or plasma [address] (Lab), [address] [place], [address], 4 14:34:10 CBC w/ auto diff [address] (Lab), [address] [place], [address], 4 14:34:10 vitamin D, 25-hydroxy, total, serum [address] (Lab), [address] [place], [address], 3 08:33:26 CMP, serum or plasma 2022 023 [facility] (Lab), [address] [place], [address], 3 13:12:26 CBC w/ auto diff 2022 023 [facility] (Lab), [address] [place], [address], 3 12:02:16 Referral None recorded. Procedures None recorded. Surgeries None recorded. Imaging XR, hip, unilateral, 2 or 3 view 2023 024 [facility] (Imaging), [address] [facility], [place], [address], 4 17:47:16 XR, lumbar spine 2023 024 [facility] (Imaging), [address], [place], [address], 4 18:11:35 Medication Orders montelukast 10 mg tablet 2024 025 [facility] [address] In [facility], [address] [place], [address], 5 16:39:53 fluticasone propionate 50 mcg/actuati on nasal spray,suspe nsion 2024 025 [facility] [address] In [facility], [facility] [place], [address], 5 16:39:53 venlafaxine ER 150 mg capsule,ext ended release 24 hr 2024 025 [place] [facility] [address] In [facility], [address] [place] [address], [address], 5 16:39:51 lisinopril 10 mg-hydrochl orothiazide 12.5 mg tablet 2024 025 [facility] [facility] [address] In [facility], [address] [place] [address], [address], 5 16:39:51 montelukast 10 mg tablet 2023 024 [facility] [address] In [facility], [address] [place] [address], [address], 4 16:52:10 venlafaxine ER 150 mg capsule,ext ended release 24 hr 2023 024 [facility] [address] In [facility], [address] [place] [address], [address], 4 16:52:09 lisinopril 10 mg-hydrochl orothiazide 12.5 mg tablet 2023 024 [facility] [address] In [facility], [address] [place] [address], [address], 4 16:52:10 meloxicam 15 mg tablet 2023 024 [email or web address] [address] In [facility], [address] [place] [address], [address], 4 16:51:16 cyclobenzap rine 10 mg tablet 2023 024 [email or web address] [address] In [facility], [address] [place] [address], [address], 4 16:50:54 montelukast 10 mg tablet 2022 023 [facility] [address] In [facility], [address] [place] [address], [address], 3 14:27:38 fluticasone propionate 50 mcg/actuati on nasal spray,suspe nsion 2022 023 [facility] [address] In [facility], [address] [place] [address], [address], 3 14:27:38 venlafaxine ER 150 mg capsule,ext ended release 24 hr 2022 023 [facility] [address], [address], 3 14:27:38 lisinopril 10 mg-hydrochl orothiazide 12.5 mg tablet 2022 023 [facility] [address], [address], 3 14:27:38 Patient TargetsNo targets recorded. Patient InstructionsNo instructions recorded. Reason for Referral None Reported. Results Created Date Observation Date Name Description Value Unit Range Abnormal Flag Note LastModifiedBy Organization Detail LastModifiedTime 03/07/20 22 03/07/2022 LDCT, chest , for lung cance r jessa goyalg No observ ation record ed. [id number] [place], [place] [address]e [facility], [place], [address], 08/15/2022 15:18:47 04/30/20 22 04/30/2022 MAMMO , jessa new, digit al, bilat eral No observ ation record ed. [id number] [place], [place] [address] [facility], [place], [address], 08/15/2022 15:18:47 08/23/19 23 08/21/2022 , [facility] ardio gram No observ ation record ed. BARCODE Not Available 2022 16:18:06 01/08/20 23 01/07/2023 XR, chest , 2 view No observ ation record ed. [address] [facility], [place], [address], 01/08/2023 09:28:47 01/08/20 23 01/07/2023 CT, angio gram, chest + abdom en + pelvi s, w/ contr ast No observ ation record ed. [address], [place], [address], 01/08/2023 09:28:47 10/29/19 24 04/25/2023 CT, abdom en + pelvi s, w/ contr ast No observ ation record ed. BARCODE Not Available 2023 18:32:57 10/31/19 24 10/29/2023 XR, hip, unila teral , 2 or 3 view No observ ation record ed. [email or web address] [facility] (Imaging) [address] [place], [place] [address] [facility], [place], [address], 11/05/2023 16:10:49 11/01/19 24 10/29/2023 XR, lumba r spine No observ ation record ed. [address] (Imaging) [address] [place], [place] [address] [facility], [place], [address], 11/05/2023 15:58:29 12/05/19 24 12/03/2023 XR, chest , 2 view No observ ation record ed. BARCODE Not Available 2023 17:36:33 Result Notes None recorded. Problems Name Problem SNOMED Code Status Onset Date Resolution Date Notes Provider Name and Address Organization Details Recorded Time Chronic obstruct jeffrey pulmonar y disease 41624357 Active 2020 Not Available [facility] 3 15:15:12 Acute sinusiti s 38912007 Active 2022 Not Available [facility] 3 15:15:12 Transiti on of care 77154328969 05 Completed 202104/03/2022 Not Available [facility] 3 15:15:12 Chronic depressi on 724499537 Active Not Available [facility] 3 15:15:12 Pleurisy 459623719 Completed Not Available [facility] 3 15:15:12 Abdomina l pain 44315083 Completed Not Available [facility] 3 15:15:12 Dyspnea 112556774 Completed Not Available [facility] 3 15:15:12 Numbness of hand 203235230 Completed Not Available [facility] 3 15:15:12 Hypoxia 281497666 Active 2021 Not Available [facility] 3 15:15:13 Obesity 307597450 Active Not Available [facility] 3 15:15:13 Solitary nodule of lung 019204001 Active [address] 2019 Not Available [facility] 3 15:15:13 Multiple nodules of lung 688316840 Active 2021 Not Available [facility] 3 15:15:13 Contusio n of lower leg 24217970 Completed Not Available [facility] 3 15:15:13 Anxiety 71720230 Active Not Available [facility] 3 15:15:13 Upper respirat ory infectio n 08921140 Completed Not Available [facility] 3 15:15:13 [facility] hyperten susana 57536475 Active Not Available [facility] 3 15:15:14 Allergic rhinitis 94264944 Active 2021 Not Available [facility] 3 15:15:14 Urinary tract infectio us disease 67832021 Completed Not Available [facility] 3 15:15:14 Duodenit is 28927145 Active 2020 Not Available [facility] 3 15:15:14 Sleep apnea 89707786 Active on cpap, sleep study 03/02 Not Available [facility] 3 15:15:14 Fatigue 24509797 Completed 202004/03/2022 Not Available [facility] 3 15:15:14 Fatigue 96959449 Completed Not Available [facility] 3 15:15:15 Pulmonar y emphysem a 26309236 Active 2017 Not Available [facility] 3 15:15:15 Pneumoni a caused by SARS-CoV -2 14124292762 4856467 Completed 202104/03/2022 Not Available [facility] 3 15:15:15 Pain of left hip joint 06364042105 9100 Active 2023 Stephane Tejada MD [address], [address], [place], [address] , [employer] 4 14:59:38 Low back pain 563641713 Active 2023 Stephane Tejada MD [address], [address], [place], [address] , [employer] 4 15:01:10 Pain of hip region 13874349 Active 2023 Sarah Ma MA null, [employer] 4 16:16:56 Hernia of anterior abdomina l wall 766270670 Active 2023 Stephane Tejada MD [address], [address], [place], [address] , [employer] 4 16:54:58 Problem Notes None recorded. Procedures Surgical History Date Name Laterality Status Provider Name and Address Organization Details Recorded Time Sinus Surgery completed Not Available [facility] 08/15/2022 15:13:12 Carpal tunnel surgery completed Not Available [facility] 08/15/2022 15:13:12 section completed Not Available [facility] 08/15/2022 15:13:12 Tubal Ligation completed Not Available [facility] 08/15/2022 15:13:12 Imaging Results None recorded. Procedure Notes None [...] No t Available prednisone 10 mg tablet START 12/16. TAKE 3 TABS BY MOUTH DAILY FOR 3 DAYS, 2 TABS FOR 3 DAYS, 1 TAB FOR 3 DAYS 12/08 completed Not Available Not Available Not Available venlafaxine ER 75 mg capsule,ext ended [...] completed Not Available Not Available Not Available azithromyci n 250 mg tablet TAKE 2 TABLETS BY MOUTH TODAY, THEN TAKE 1 TABLET DAILY FOR 4 DAYS DIRECTED 12/08 completed Not Available Not Available Not Available ibuprofen 800 mg tablet TAKE 1 TABLET BY MOUTH EVERY 8 HOURS NEEDED FOR PAIN active Not Available Not Available No t Available benzonatate 200 mg capsule Take 1 [...] Not Available prednisone 20 mg tablet TAKE 1 TABLET BY MOUTH TWICE A DAY FOR 5 DAYS 12/08 completed Not Available Not Available Not Available clobetasol 0.05 % topical cream APPLY A THIN LAYER TO THE AFFECTED AREA(S) BY TOPICAL ROUTE 2 TIMES PER DAY active Not Available Not Available No t Available permethrin 5 % topical cream APPLY [...] TAKE 1 CAPSULE BY MOUTH EVERY DAY 2024 active Not Available Not Available Not Avai lable amoxicillin 500 mg tablet Take 1 tablet 3 times a day by oral route for 7 days. 06/01 completed Not Available Not Available Not Available oxycodone-a cetaminophe n 5 mg-325 mg tablet TAKE 1 TABLET BY MOUTH EVERY 4 HOURS NEEDED FOR PAIN 12/08 completed Not Available Not Available Not Available [...] completed Not Available Not Available Not Available diclofenac sodium 75 mg tablet,christo yed release TAKE 1 TABLET BY MOUTH TWICE A DAY 12/08 completed Not Available Not Available Not Available [...] Not Available Not Available Not Avai lable levofloxaci n 750 mg tablet TAKE 1 TABLET BY MOUTH EVERY DAY FOR 7 DAYS 12/08 completed Not Available Not Available Not Available methylpredn isolone 4 mg tablets in a dose pack take as directed 07/18 completed Not Available Not Available Not Available albuterol sulfate HFA 90 mcg/actuati on aerosol inhaler INHALE 1 - 2 PUFFS EVERY 4 - 6 HOURS NEEDED FOR SHORTNESS OF BREATH OR WHEEZING active Not Available Not Available No t Available Vitamin D2 1,250 mcg (50,000 unit) capsule Take 1 capsule every week by oral route for 90 days. active Not Available Not Available No t Available oxybutynin chloride 5 mg tablet TAKE 1 TABLET 3 TIMES A DAY active Not Available Not Available No t Available fluticasone propionate 50 mcg/actuati on nasal spray,suspe nsion INSTILL 2 SPRAYS BY INTRANASA L ROUTE EVERY DAY active Not Available Not Available No t Available progesteron e micronized 100 mg capsule TAKE 1 CAPSULE BY MOUTH EVERY DAY NIGHTLY 12/08 completed Not Available Not Available Not Available amoxicillin 875 mg-potassiu m clavulanate 125 mg tablet Take 1 tablet every 12 hours by oral route for 7 days. 07/18 completed Not Available Not Available Not Available ezetimibe 10 mg tablet TAKE 1 TABLET BY MOUTH EVERY DAY 12/08 completed Not Available Not Available Not Available cyclobenzap rine 5 mg tablet TAKE 1 TABLET BY MOUTH THREE TIMES A DAY NEEDED active Not Available Not Available No t Available rosuvastati n 5 mg tablet TAKE 1 TABLET BY [...] completed Not Available Not Available Not Available pitavastati n calcium 2 mg tablet TAKE 1 TABLET BY MOUTH EVERY DAY active Not Available Not Available No t Available Fluzone Quad (PF) 60 mcg (15 mcg x 4)/0.5 mL IM syringe ADM 0.5ML IM UTD 05/30 completed Not Available Not Available Not Available Chandrai Aerosphere 160 mcg-9mcg-4. 8mcg/actuat ion HFA aerosol inhaler INHALE 2 INHALATIO NS BY MOUTH TWICE A DAY RINSE MOUTN AND SPIT AFTER EACH USE active Not Available Not Available No t Available Vitals Date Recorded Body height Body mass index (BMI) Body weight Body temperature Heart rate Oxygen saturation Oxygen saturation in Arterial blood by Pulse oximetry Systolic And Diastolic Provider Name and Address Organization Details Last Updated DateTime 4 157.48 cm 43.7 kg/m2 341485. 94 g 98.1 [degF] 102 /min 98 % 98 % 120/80 mm[Hg] Bernice García Lemuel [place] [employer] [facility] [employer] 4 14:12:37 Date Recorded Body height Body mass index (BMI) Body weight Body temperature Oxygen saturation Oxygen saturation in Arterial blood by Pulse oximetry Heart rate Systolic And Diastolic Provider Name and Address Organization Details Last Updated DateTime 5 157.48 cm 43.5 kg/m2 857098. 98 g 97.8 [degF] 97 % 97 % 73 /min 126/86 mm[Hg] Marisol chauhan [employer] [facility] [employer] 5 16:33:13 Date Recorded Body height Body mass index (BMI) Body weight Body temperature Heart rate Oxygen saturation Oxygen saturation in Arterial blood by Pulse oximetry Systolic And Diastolic Provider Name and Address Organization Details Last Updated DateTime 3 157.48 cm 40.6 kg/m2 035434. 51 g 97.1 [degF] 98 /min 97 % 97 % 112/74 mm[Hg] Leanne sheets Lemuel [employer] [facility] [employer] 3 14:06:17 Date Recorded Body height Body mass index (BMI) Body weight Body temperature Heart rate Oxygen saturation Oxygen saturation in Arterial blood by Pulse oximetry Systolic And Diastolic Provider Name and Address Organization Details Last Updated DateTime 4 157.48 cm 45.2 kg/m2 413041. 32 g 98.5 [degF] 84 /min 98 % 98 % 116/74 mm[Hg] Blaire Kael [place] - [facility] 4 16:11:29 Date Recorded Body mass index (BMI) Body height Oxygen saturation Oxygen saturation in Arterial blood by Pulse oximetry Heart rate Body weight Systolic And Diastolic Provider Name and Address Organization Details Last Updated DateTime 2 44.1 kg/m2 157.48 cm 98 % 98 % 95 /min 101626. 76 g 124/80 mm[Hg] Not Available [facility] 3 15:13:54 Social History Question Answer Notes LastModified by In[employer] Details LastModified Time Tobacco Smoking Status Former Smoker Quit 10 yrs ago Not Available [facility] 08/15/2022 15:13:02 Do You Have An Advance Directive? No [id number] Information not available 08/15/2022 What Is Your Level Of Caffeine Consumption? Moderate [id number] Information not available 08/15/2022 How Much Tobacco Do You Chew? None [id number] Information not available 08/15/2022 What Type Of Diet Are You Following? REGULAR [id number] Information not available 08/15/2022 Which Illicit Or Recreational Drugs Have You Used? None [id number] Information not available 08/15/2022 What Was The Date Of Your Most Recent Tobacco Screening? 01/05/2021 [id number] Information not available 08/15/2022 At What Age Did You Start Smoking Tobacco? 15 [id number] Information not available 08/15/2022 How Much Tobacco Do You Smoke? 2 PPD [id number] Information not available 08/15/2022 Do You Use Sunscreen Routinely? No [id number] Information not available 08/15/2022 Sex: Female Functional Status Question Answer Note LastModified by [employer] Details LastModified Time What is your level of alcohol consumption? 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 Occasional [id number] Information not available 08/15/2022 Mental Status None recorded. Family History Nothing Reported. Medical History No medical history recorded. Gynecological HistoryNo gynecological history recorded. Obstetrics History GPAL:G 0 P 0 0 0 0 Immunizations Vaccine Type Date Status Note Provider Nam e and Address Organization Details Recorded Time Influenza, split virus, quadrivalent, preservative 0 completed Not Available [facility] 08/15/2022 15:18:39 pneumococcal polysaccharide PPV23 0 completed Not Available [facility] 08/15/2022 15:18:40 Tdap 6 completed Not Available [facility] 08/15/2022 15:18:40 Past Encounters Encounter ID Performer Location Encounter Start Date Encounter Closed Date Diagnosis/Indication Diagnosis SNOMED-CT Code Diagnosis ICD10 Code Diagnosis Note [id number] Stephane Tejada MD [facility] [address] [place] [address] 01/05/2021 00:00:00 01/05/2021 16:26:11 [id number] Stephane Tejada MD [facility] [place] [facility] [address] [place] [address] 06/06/2021 00:00:00 06/06/2021 16:42:15 [id number] Stephane Tejada MD [facility] [place] [facility] [address] [place] [address] 07/18/2021 00:00:00 07/18/2021 16:14:49 [id number] Stephane Tejada MD [facility] [place] [facility] [address] [place] [address] 04/03/2022 00:00:00 04/03/2022 16:08:23 [id number] Stephane Tejada MD [facility] [place] [facility] [address] [place] [address] 02/21/2023 14:00:54 02/21/2023 14:29:21 Essential hypertension 15939122 I10 under control Sleep apnea 84776257 G47 .30 cpap compliant Obesity 049366174 E66.9 advised to lose more Chronic ob structive pulmonary disease 43780434 J44.9 under control Chronic depression 12960 0009 F34.1 stable Anxiety 98316469 F41.9 stable Adult heal th examination 571738985 Z00.00 Colonoscop y- 2020 at [facility] - Had internal hemorrhoid Pap- seeing Gyne- Mammogram- gets from gyne Pneumovax- 01/15/2020 FLU- 02/2020 COVID- has not had Multiple n odules of lung 816377300 R91.8 benign Ex-smoker 1084355 Z87.89 1 needs LDCT wants to wait Allergic rhinitis 371890 04 J30.9 Long-term drug therapy 504593607 Z79.000 [id number] Stephane Tejada MD [facility] [place] [place] Internal Med [facility] [address] [facility] [place] [address] 10/29/2023 14:02:22 10/29/2023 15:04:44 Pain of left hip joint 0291742731 41792 M25.552 Low back pain 913278259 M54.50 [id number] Stephane Tejada MD [facility] Internal Med [facility] [address] [facility] [place] [address] 03/02/2024 15:59:46 03/02/2024 16:56:06 Essential hypertension 54967780 I10 under control Sleep apnea 19558589 G47 .30 cpap compliant Obesity 832379219 E66.9 advised to lose, watch diet Chronic ob structive pulmonary disease 52450074 J44.9 under control Chronic depression 14305 0009 F34.1 stable Anxiety 04822679 F41.9 stable Adult heal th examination 054336319 Z00.00 Colonoscop y- 2020 at [facility] - Had internal hemorrhoid Pap- seeing Gyne- Mammogram- gets from gyne Pneumovax- 01/15/2020 FLU- 02/2020 COVID- has not had Multiple n odules of lung 701188846 R91.8 benign Ex-smoker 0326288 Z87.89 1 LDCT gets from pulm Allergic rhinitis 192596 04 J30.9 Long-term drug therapy 599130543 Z79.899 Hernia of anterior abdominal wall 107360668 K43.9 seen surgery, needs surgery [id number] Stephane Tejada MD [facility] Internal Med [address] [facility] [place] [address] 12/08/2024 15:48:21 12/08/2024 17:18:17 Essential hypertension 66712564 I10 under control Sleep apnea 99060747 G47 .30 cpap compliant Obesity 113839856 E66.9 advised to lose more and do exercise Chronic ob structive pulmonary disease 92867153 J44.9 under control Chronic depression 03718 0009 F34.1 stable Anxiety 74639851 F41.9 under control Adult heal th examination 194882327 Z00.00 Colonoscop y- 2020 at [facility] - Had internal hemorrhoid Pap- seeing Gyne- Mammogram- gets from gyne Pneumovax- 01/15/2020 FLU- 02/2020 COVID- has not had Multiple n odules of lung 421896476 R91.8 benign Ex-smoker 3777764 Z87.89 1 LDCT gets from pulm Allergic rhinitis 642011 04 J30.9 Hernia of anterior abdominal wall 181747700 K43.9 seen surgery, needs surgery Health Concerns Section Related Observation LastModified by Organization Detai ls LastModified Time None Recorded Concern Status LastModified by Organization Details LastModified Time None Recorded Advance Directives Directive N: Payers Insurance Date Sequence Insurance Name Policy Number Policy Shelby Covered Member ID Shelby Member ID Guarantor Name 12/10/2024 1 [employer] [id number] Eli Rey [id number] Eli Rey 12/08/2024 2 [employer] Eli Rey [id number] Eli Rey 12/08/2024 2 AETLESLIE Rey [id number] Eli Rey Notes Date Note Type Note [...] on symbicort, now on breztri seen Dr. Lang Breztri 160 mg 2 puffs bid Ex [...] no more Stephane Tejada MD [address], [address], [place], [address], [facility] [employer] [facility] [employer] 02/21/2023 14:29:03 10/29/2023 text/html She is here [...] get it. Stephane Tejada MD [address], [address], [place], [address], [facility] [employer] [facility] [employer] 10/29/2023 15:02:29 03/02/2024 text/html she is her [...] on symbicort, now on breztri seen Dr. Precious Houseztri 160 mg 2 puffs bid Ex smoker- [...] no more Stephane Tejada MD [address], [address], [place], [address], [employer] 03/02/2024 16:55:30 12/08/2024 text/html she is her for h er routine follow up, needs refills PT is not fasting meritan HTN- taking meds, under control,Meds- Lisinopril/ HCTZ 10 mg/12.5 mg daily Sleep apnea- sleep study 2015, on cpap, compliant, fatigue gets better with cpap Depression/Anxiety- Mood and anxiety is under control, no side effectsMeds- Venlafaxine 150 mg daily Obesity- watching diet. Had lost weight with meds from gyne ( Topiramate, phentermine )on semaglutide shot 2 months COPD- PFT 09/05, was on symbicort, Dr. Precious Quintanatrcaryn 160 mg 2 puffs bid Ex smoker- [...] no more Stephane Tejada MD [address], [address], [place], [address], [employer] 12/08/2024 16:40:09 OBGyn Episode No OBEpisode recorded.
== END 2024-12-28 13:13 | disposition home or self-care (01) ==
PROVIDERS: PCP Internal Medicine; Visit Provider Physician Assistant
DX: R91.8 Other nonspecific abnormal finding of lung field (principal); Z12.2 Encounter for screening for malignant neoplasm of respiratory organs; Z87.891 Personal history of nicotine dependence
CPT/HCPCS: 71271